=== PATIENT | female | born 1945 | race Asian ===

== ENCOUNTER 2017-02-24 08:00 | Outpatient (CLI) | payer MEDICARE, OTHER ==
[2017-02-24 19:48] LABS: BASOPHILS # (AUTO) 0.1 10^3/uL (0.0-0.1); BASOPHILS % (AUTO) 1.1 %; EOSINOPHILS # (AUTO) 0.1 10^3/uL (0.0-0.7); EOSINOPHILS % (AUTO) 1.2 %; HCT - HEMATOCRIT 42.3 % (37.0-47.0); LYMPHOCYTES # (AUTO) 1.2 10^3/uL (1.5-3.5); LYMPHOCYTES % (AUTO) 20.2 %; MEAN CORPUSCULAR HEMOGLOBIN 30.7 pg (27.0-31.0); MEAN CORPUSCULAR HGB CONC 33.1 g/dL (32.0-36.0); MEAN CORPUSCULAR VOLUME 92.7 fL (81.0-99.0); MONOCYTES # (AUTO) 0.4 10^3/uL (0.0-1.0); MONOCYTES % (AUTO) 6.9 %; NEUTROPHILS % (AUTO) 70.6 %; RED BLOOD COUNT 4.57 10^6/uL (4.20-5.40); RED CELL DISTRIBUTION WIDTH 13.2 % (12.0-15.0); UNCORRECTED WHITE BLOOD COUNT 5.7 x10^3/uL; WHITE BLOOD COUNT 5.7 x10^3/uL (4.8-10.8)
[2017-02-24 20:03] LABS: ALBUMIN/GLOBULIN RATIO 1.9 (1.0-2.2); CALCIUM 9.4 mg/dL (8.5-10.3); CREATININE 0.6 mg/dL (0.4-1.0); POTASSIUM 4.1 mmol/L (3.5-5.0); TOTAL PROTEIN 6.4 g/dL (6.7-8.2)
[2017-02-26 21:07] LABS: B. PARAPERTUSSIS DNA NOT DETECTED (()); B. PERTUSSIS DNA NOT DETECTED (())
== END 2017-02-24 08:01 | disposition home or self-care (01) ==
LOC: LAB.WCP 08:00
PROVIDERS: ATTEND Physician Assistant Medical
DX: R05 Cough (principal)
CPT/HCPCS: 36415; 80053; 84260; 85025; 85651; 87801

== ENCOUNTER 2017-02-26 12:56 | Outpatient (CLI) | payer MEDICARE, OTHER ==
[2017-02-26] MEDS ORDERED: IOPAMIDOL-300 100 ML VIAL IVP ONE (14:02)
--- NOTE | 2017-02-27 11:54 | CT Report ---
CT EXAM OF THE CHEST: 02/26/2017 CLINICAL HISTORY: Cough. TECHNIQUE: The patient received 80 mL of Isovue-300 as a contrast agent. A CAT scan of the chest wa s done in axial, coronal, and sagittal reconstruction images. In accordance with CT protocol optimization, one or more of the following dose reduction techniques w ere utilized for this exam: automated exposure control, adjustment of mA and/or KV based on patient size, or use of iterative reconstructive technique. COMPARISON: 06/27/2011 FINDINGS: Mediastinum shows no significant adenopathy. There are two small nodules within the anter ior aspect of the right lobe of the thyroid. These hypodense nodules each measure 0.5 cm or less in diameter. Normal cardiac size is seen. Mild ectasia of the descending and ascending thoracic aorta is noted. Lung windows show no parenchymal nodules. There is a small cyst or bleb in the medial aspect of the right lower lobe. There are no other cystic changes in the chest. Examination is negative for fibro tic change or abnormality of the bronchi. No change is noted in the chest as compared to 06/27/2011. Liver and spleen are normal. There is a huge right renal cyst noted measuring 10.0 x 11.8 cm. Thi s cyst has substantially increased in size since the preceding exam when it measured 5.7 x 6.3 cm. T he entire cyst is not included on the present exam. The CT numbers of a portion of the cyst seen are 10.8 which suggest the lesion is of benign etiology. Axillary regions bilaterally appear normal. Right breast once again demonstrates a mass at the 6 o'c lock position measuring 1.8 cm. This was seen on preceding exam and, therefore, most likely is of be nign etiology. Bone windows show mild anterior spurring in the thoracic spine. IMPRESSION: 1. LUNGS SHOW NO SIGNIFICANT ABNORMALITY. THERE IS A SMALL BLEB OR CYST ONCE AGAIN NOTED IN THE MED IAL ASPECT OF THE RIGHT LOWER LOBE, UNCHANGED COMPARED TO 06/27/2011. 2. A HUGE CYST IS SEEN IN ASSOCIATION WITH THE RIGHT KIDNEY MEASURING 10.0 X 11.8 CM. THIS CYST HAS SUBSTANTIALLY INCREASED IN SIZE SINCE THE PRECEDING EXAM. 3. A 1.8 CM IN DIAMETER MASS IS NOTED AT THE 6 O'CLOCK POSITION OF THE RIGHT BREAST, UNCHANGED CO MPARED TO PRECEDING EXAM. THIS LACK OF CHANGE SUGGESTS IT IS OF BENIGN ETIOLOGY. JOB #: [id number] EXT JOB #:[id number]
== END 2017-02-26 12:57 | disposition home or self-care (01) ==
LOC: DI 12:56
PROVIDERS: ATTEND Physician Assistant Medical
DX: R05 Cough (principal); N63 Unspecified lump in breast
CPT/HCPCS: 71260; Q9967

== ENCOUNTER 2017-04-27 10:01 | Outpatient (CLI) | payer MEDICARE, OTHER ==
[2017-04-27 17:04] LABS: CHOL/HDL RATIO 3.4 (<4.4); CHOLESTEROL 166 mg/dL; HDL CHOLESTEROL 49 mg/dL; LDL/HDL RATIO 1.6 (<4.4); TRIGLYCERIDES 194 mg/dL; VLDL CHOLESTEROL 39 mg/dL
== END 2017-04-27 10:02 | disposition home or self-care (01) ==
LOC: LAB.WCP 10:01
PROVIDERS: ATTEND Physician Assistant Medical
DX: E78.5 Hyperlipidemia, unspecified (principal)
CPT/HCPCS: 36415; 80061

== ENCOUNTER 2017-05-06 13:55 | Outpatient (CLI) | payer MEDICARE, OTHER ==
--- NOTE | 2017-05-06 17:30 | Ultrasound Report ---
LEFT BREAST ULTRASOUND: 05/06/2017 CLINICAL INDICATION: Palpable abnormality at time of mammogram. TECHNIQUE: Real-time scanning was performed with medical field representative static images obtained. FINDINGS: Ultrasound of the palpable abnormality identified by the patient was performed. Unremarka ble parenchymal lobules are seen. No discrete solid or cystic lesion is identified. No sonographica lly suspicious findings are seen. IMPRESSION: NEGATIVE EXAMINATION. RECOMMENDATION: Routine annual screening unless otherwise clinically indicated. BI-RADS category 1, negative. JOB #: [id number] EXT JOB #:[id number]
--- NOTE | 2017-05-06 17:34 | Mammography Report ---
DIGITAL DIAGNOSTIC BILATERAL MAMMOGRAM: 05/06/2017 CLINICAL INDICATION: Palpable abnormality left upper outer quadrant. The patient was originally scheduled for a screening examination, but described a palpable abnormalit y at the time of the examination. As such, a marker was placed at the site of the palpable abnormalit y, and the examination was converted to a diagnostic mammogram. TECHNIQUE: Bilateral CC and MLO views, left true lateral view. COMPARISON: 05/09/2016, 05/02/2015, 04/18/2014, 05/02/2013, 03/24/2012, 03/10/2011, 02/21/2010 . FINDINGS: The breasts again demonstrate heterogeneously dense fibroglandular parenchyma bilaterally. Punctate, typically benign calcifications are present. No suspicious masses, clustered microcalcific ations, or regions of architectural distortion are identified. Specifically, no mammographic abnormal ity is appreciated in the left upper outer quadrant, at the site indicated by the marker. Please also refer to left breast ultrasound of the same day. IMPRESSION: BENIGN FINDINGS. RECOMMENDATION: ROUTINE ANNUAL SCREENING UNLESS OTHERWISE CLINICALLY INDICATED. BIRADS CATEGORY 2-BENIGN FINDINGS. STANDARD QUALIFYING STATEMENTS 1. This examination was reviewed with the aid of Computer-Aided Detection (CAD). 2. A negative or benign imaging report should not delay biopsy if clinically suspicious findings are present. Consider surgical consultation if warranted. More than 5% of cancers are not identified by i ing. 3. Dense breasts may obscure an underlying neoplasm. JOB #: [id number] EXT JOB #:[id number]
== END 2017-05-06 13:56 | disposition home or self-care (01) ==
LOC: DI 13:55
PROVIDERS: ATTEND Physician Assistant Medical
DX: N63 Unspecified lump in breast (principal)
CPT/HCPCS: 76642; G0204; 77066

== ENCOUNTER 2017-07-12 01:12 | Emergency (ER) | payer MEDICARE, OTHER ==
--- NOTE | 2017-07-12 03:07 | ED Physician Documentation ---
PD HPI HEADACHE - Stated complaint Stated Complaint: HEADACHE - Chief complaint Chief Complaint: Neuro - History obtained from History obtained from: Patient - History of Present Illness Timing - onset: Enter time (00:00 (midnight)) Timing - onset during: Rest Timing - details: Gradual onset, Constant, Waxing and waning, Still present in ED Pain level max: 5 Location: Global Quality: Other (dull pressure) Associated symptoms: No: Fever, Stiff neck, Nausea, Vomiting, Weakness, Numbness , Syncope, Seizure, Eye pain, Vision changes Improved by: Dark room Worsened by: Light Contributing factors: No: Anticoagulated, Possible carbon monoxide, Hypertension , Recent illness, Trauma Similar symptoms before: Has not had sx before Recently seen: Not recently seen - Additional information Additional information: patient complains of global headache since midnight while lying in bed but not asleep. She then measure blood pressure and had readings of 159/99 and 160/103 Review of Systems Constitutional: reports: Reviewed and negative Eyes: reports: Reviewed and negative Nose: denies: Sinus pressure / pain Cardiac: reports: Reviewed and negative Respiratory: reports: Reviewed and negative GI: reports: Reviewed and negative Musculoskeletal: denies: Neck pain Neurologic: reports: Headache. denies: Generalized weakness, Focal weakness, Numbness PD PAST MEDICAL HISTORY - Past Medical History Past Medical History: Yes Cardiovascular: Hypertension, High cholesterol HEENT: Glaucoma Other Past Medical History: cysts on kidneys - Past Surgical History Past Surgical History: Yes General: Appendectomy /TAILER OFF: Hysterectomy - Present Medications Home Medications: Ambulatory Orders Medication Instructions Recorded Confirmed Amlodipine Besylate 1 tab PO QPM 07/12/17 07/12/17 Aspirin [Adult Low Dose Aspirin EC] 1 tab PO DAILY 07/12/17 07/12/17 Brimonidine 0.2% Ophth Drops 1 drops EACHEYE BID 07/12/17 07/12/17 [Alphagan P 0.2% Ophth Drops] Calcium Citrate 3 tab PO DAILY 07/12/17 07/12/17 Cholecalciferol (Vitamin D3) 1 tab PO DAILY 07/12/17 07/12/17 [Vitamin D3] Hydrocodone/Acetaminophen 1 - 2 each PO Q6HR PRN #14 tablet 07/12/17 [Hydrocodon-Acetaminophen 5-325] Latanoprost 0.005% Ophth Drops 1 drops EACHEYE QPM 07/12/17 07/12/17 [Xalatan Ophth Drops] Losartan [Cozaar] 25 mg PO DAILY 07/12/17 07/12/17 Simvastatin 10 mg PO QPM 07/12/17 07/12/17 - Allergies Allergies/Adverse Reactions: Allergies Allergy/AdvReac Type Severity Reaction Status Date / Time morphine Allergy Rash Verified 07/12/17 01:19 - Social History Does the pt smoke?: No Smoking Status: Never smoker Does the pt drink ETOH?: No Does the pt have substance abuse?: No PD ED PE NORMAL - Vitals Vital signs reviewed: Yes - General General: Alert and oriented X 3, No acute distress, Well developed/nourished - HEENT HEENT: PERRL, EOMI, Moist mucous membranes - Neck Neck: Supple, no meningeal sign - Cardiac Cardiac: RRR, No murmur - Respiratory Respiratory: No respiratory distress, Clear bilaterally - Abdomen Abdomen: Soft, Non tender - Extremities Extremities: No edema - Neuro Neuro: Alert and oriented X 3, test rack operator 2-12 intact, No motor deficit, No sensory deficit Eye Opening: Spontaneous Motor: Obeys Commands Verbal: Oriented GCS Score: 15 Results - Vitals Vitals: Vital Signs - 24 hr 07/12/17 07/12/17 07/12/17 01:14 04:00 05:14 Temperature 36.0 C L Heart Rate 78 65 68 Respiratory 18 14 14 Rate Blood Pressure 151/99 H 133/90 H 128/91 H O2 Saturation 100 97 97 Oxygen O2 Source Room air - Labs Labs: Laboratory Tests 07/12/17 07/12/17 03:46 03:46 WBC 5.3 RBC 4.77 Hgb 14.5 Hct 42.3 MCV 88.6 MCH 30.4 MCHC 34.3 RDW 13.1 Plt Count 250 MPV 8.0 Neut # 4.2 Lymph # 0.8 L [place] # 0.3 Eos # 0.0 Baso # 0.1 Absolute Nucleated RBC 0.00 Nucleated RBC % 0.0 Sodium 142 Potassium 3.6 Chloride 106 Carbon Dioxide 27 Anion Gap 9.0 BUN 15 Creatinine 0.6 Estimated GFR (MDRD) 99 Glucose 118 H Calcium 9.3 - Rads (name of study) CT head Radiology: Prelim report reviewed, See rad report PD MEDICAL DECISION MAKING - ED course Complexity details: reviewed results, re-evaluated patient, considered differential, d/w patient Departure - Departure Disposition: 01 Home, Self Care Clinical Impression: Headache Qualifiers: Headache type: unspecified Headache chronicity pattern: acute headache Intractability: not intractable Qualified Code(s): R51 - Headache Hypertension Qualifiers: Hypertension type: essential hypertension Qualified Code(s): I10 - Essential ( primary) hypertension Condition: Good Instructions: ED Cephalgia Unspecified, ED Hypertension Conf Out Of Control Follow-Up: Reba Choi PA-C [Primary Care Provider] - Prescriptions: Hydrocodone/Acetaminophen [Hydrocodon-Acetaminophen 5-325] 1 - 2 each PO Q6HR PRN #14 tablet PRN Reason: Headache Discharge Date/Time: 07/12/17 05:48
[2017-07-12] MEDS ORDERED: HYDROcod/ACETAM 5/325 MG TABLET PO STA ×2 (03:38→05:41)
[2017-07-12] MEDS ORDERED: HYDROcod/ACETAM 10 MG/325 MG TABLET ONE ×2 (03:49→05:51)
[2017-07-12 03:51] LABS: BASOPHILS # (AUTO) 0.1 10^3/uL (0.0-0.1); BASOPHILS % (AUTO) 1.1 %; EOSINOPHILS % (AUTO) 0.8 %; HCT - HEMATOCRIT 42.3 % (37.0-47.0); HGB - HEMOGLOBIN 14.5 g/dL (12.0-16.0); LYMPHOCYTES # (AUTO) 0.8 10^3/uL (1.5-3.5); LYMPHOCYTES % (AUTO) 14.8 %; MEAN CORPUSCULAR HEMOGLOBIN 30.4 pg (27.0-31.0); MEAN CORPUSCULAR HGB CONC 34.3 g/dL (32.0-36.0); MEAN CORPUSCULAR VOLUME 88.6 fL (81.0-99.0); MONOCYTES # (AUTO) 0.3 10^3/uL (0.0-1.0); MONOCYTES % (AUTO) 4.9 %; NEUTROPHILS # (AUTO) 4.2 10^3/uL (1.5-6.6); NEUTROPHILS % (AUTO) 78.4 %; RED BLOOD COUNT 4.77 10^6/uL (4.20-5.40); RED CELL DISTRIBUTION WIDTH 13.1 % (12.0-15.0); UNCORRECTED WHITE BLOOD COUNT 5.3 x10^3/uL; WHITE BLOOD COUNT 5.3 x10^3/uL (4.8-10.8)
[2017-07-12 03:59] LABS: CALCIUM 9.3 mg/dL (8.5-10.3); CREATININE 0.6 mg/dL (0.4-1.0); POTASSIUM 3.6 mmol/L (3.5-5.0)
--- NOTE | 2017-07-12 04:11 | CT Preliminary Report ---
Exam: CT HEAD W/O IMPRESSION: No acute or focal intracranial abnormality. [facility] SITE ID: [id number]
--- NOTE | 2017-07-12 04:14 | CT Report ---
EXAM: CT HEAD EXAM DATE: 07/12/2017 04:01 AM. CLINICAL HISTORY: Occipital headache COMPARISON: 05/10/2014. TECHNIQUE: Multiaxial CT images were obtained from the foramen magnum to the vertex. Reformats: Coron al. IV contrast: None. In accordance with CT protocol optimization, one or more of the following dose reduction techniques w ere utilized for this exam: automated exposure control, adjustment of mA and/or KV based on patient s ize, or use of iterative reconstructive technique. FINDINGS: Parenchyma: No intraparenchymal hemorrhage. No evidence of mass, midline shift, or CT findings of inf arction. Tyson-white differentiation is distinct. Extraaxial Spaces: Normal for age. No subdural or epidural collections identified. Ventricles: Normal in size and position. Sinuses and Orbits: Imaged paranasal sinuses, orbits, and mastoids show no significant abnormality. Bones: No evidence of fracture or calvarial defect. Other: Mild nonspecific white matter change, stable IMPRESSION: No acute or focal intracranial abnormality. [facility] Referring Provider Line: [phone] SITE ID: [id number]
[2017-07-12 05:15] VITALS: BP 128/91
== END 2017-07-12 05:48 | disposition home or self-care (01) ==
LOC: ED 01:12
DX: R51 Headache (principal); I10 Essential (primary) hypertension; E78.00 Pure hypercholesterolemia, unspecified; Z79.82 Long term (current) use of aspirin
CPT/HCPCS: 36415; 70450; 80048; 85025; 99283; A9270

== ENCOUNTER 2017-11-13 09:10 | Outpatient (CLI) | payer MEDICARE, OTHER | END 2017-11-13 09:11 | disposition home or self-care (01) | LOC: LAB.WCP 09:10 | PROVIDERS: ATTEND Family Medicine | DX: R50.9 Fever, unspecified (principal); B97.89 Other viral agents as the cause of diseases classified elsewhere | CPT/HCPCS: 87275; 87276 ==

== ENCOUNTER 2018-05-14 13:06 | Outpatient (CLI) | payer MEDICARE, OTHER ==
--- NOTE | 2018-05-17 09:09 | Mammography Report ---
Reason: BILAT SCREEN w SULY Procedure Date: 05/14/2018 Accession Number: [id number] / [id number] Procedure: [facility]ALO - Screening Mammo w/Suly CPT Code: FULL RESULT: EXAM: Screening Mammo w/Suly DATE: 05/14/2018 2:07 PM CLINICAL HISTORY: 72-year-old female presents for screening mammography. TECHNIQUE: Bilateral CC and MLO views were obtained. A left exaggerated CC view was obtained. COMPARISON: 05/06/2017, 05/09/2016, 05/02/2015. FINDINGS: The breasts demonstrate heterogeneously dense fibroglandular parenchyma bilaterally. A well circumscribed oval hyperdense mass in the right breast anteriorly and inferiorly on the MLO view is stable dating back to 2014. There is no associated microcalcification or architectural distortion. No suspicious masses, clustered microcalcifications, or regions of architectural distortion are identified. IMPRESSION: Benign findings RECOMMENDATION: Routine annual screening unless otherwise clinically indicated. BIRADS CATEGORY 2: Benign findings STANDARD QUALIFYING STATEMENTS: 1. This examination was not reviewed with the aid of Computer-Aided Detection (CAD). 2. A negative or benign imaging report should not delay biopsy if clinically suspicious findings are present. Consider surgical consultation if warrented. More than 5% of cancers are not identified by imaging. 3. Dense breasts may obscure an underlying neoplasm. 4. This examination was reviewed with the aid of 3D breast imaging (tomosynthesis).
== END 2018-05-14 13:07 | disposition home or self-care (01) ==
LOC: DI 13:06
PROVIDERS: ATTEND Physician Assistant Medical
DX: Z12.31 Encounter for screening mammogram for malignant neoplasm of breast (principal)
CPT/HCPCS: 77063; 77067

== ENCOUNTER 2018-05-25 14:41 | Outpatient (CLI) | payer MEDICARE, OTHER ==
--- NOTE | 2018-05-27 15:47 | DEXA Report ---
Reason: BONE DISEASE Procedure Date: 05/25/2018 Accession Number: [id number] / [id number] Procedure: DEX - Dexa Spine and/or Hip CPT Code: FULL RESULT: EXAM: Dexa Spine and/or Hip DATE: 05/25/2018 3:16 PM CLINICAL HISTORY: BONE DISEASE. Follow-up osteopenia TECHNIQUE: Dual energy x-ray absorptiometry (DXA) was performed on a [employer] System. Regions measured are the AP Spine, femoral neck, and if needed forearm. COMPARISON: 05/09/2016 In accordance with the International Society for Clinical Densitometry (ISCD) guidelines, data from previous exams may be reanalyzed using current recommendations and techniques. This is done to allow a more accurate basis for comparison with the current study. FINDINGS: The data for the lumbar spine is as follows: BMD (g/cm/cm) T-SCORE Z-SCORE REGION L1 0.979 -1.3 0.9 L2 0.891 -2.6 -0.4 L3 1.034 -1.4 0.7 L4 TOTAL 0.973 -1.6 0.5 NOTE: All evaluable vertebrae are used for classification The data for the hip is as follows: BMD (g/cm/cm) T-SCORE Z-SCORE REGION Neck 0.808 -1.7 0.4 TOTAL 0.882 -1.0 0.8 NOTE: The femoral neck or total proximal femur, whichever is lowest, is used for classification. DXA RESULTS SUMMARY: Spine SCAN DATE AGE BMD CHANGE VS CHANGE VS PREVIOUS PREVIOUS % 05[age]25/2018 70.7 0.973 -0.106* -9.8* 05/09/2016 68.6 1.079 * Denotes significant change at the 95% confidence level. Denotes dissimilar scan types or analysis methods. DXA RESULTS SUMMARY: Hip SCAN DATE [age]GE BMD CHANGE VS CHANGE VS PREVIOUS PREVIOUS % 05[birth year]25/2018 70.7 0.882 -0.013 -1.5 05/09/2016 68.6 0.895 * Denotes significant change at the 95% confidence level. Denotes dissimilar scan types or analysis methods. IMPRESSION: THE WHO CLASSIFICATION BASED ON THE INTERNATIONAL REFERENCE STANDARD IS OSTEOPENIA. THE FRACTURE RISK IS INCREASED. RECOMMENDATION: Patients with diagnosis of osteoporosis or osteopenia should have regular bone mineral density assessment. For those eligible for Medicare, routine testing is allowed once every 2 years. Testing frequency can be increased for patients who have rapidly progressing disease or for those who are receiving medical therapy to restore bone mass. COMMENT: World Health Organization (WHO) definitions for osteoporosis and osteopenia: NORMAL BMD: T-score at -1.0 or higher, fracture risk is low OSTEOPENIA BMD: T-score between -1.0 and -2.5, fracture risk is increased. OSTEOPOROSIS BMD: T-score at -2.5 or lower, fracture risk is high. National Osteoporosis Foundation recommends: 1. Obtain adequate dietary calcium (at least 1200 mg per day) and vitamin D (400-800 international units per day). 2. Participate, as appropriate, in regular weightbearing and muscle-strengthening exercise. 3. Avoid tobacco use and reduce alcohol and caffeine intake. 4. For more detailed information see the website at www.NOF.org.
== END 2018-05-25 14:42 | disposition home or self-care (01) ==
LOC: DI 14:41
PROVIDERS: ATTEND Physician Assistant Medical
DX: M85.89 Other specified disorders of bone density and structure, multiple sites (principal)
CPT/HCPCS: 77080

== ENCOUNTER 2018-11-08 13:51 | Outpatient (CLI) | payer MEDICARE, OTHER ==
--- NOTE | 2018-11-08 14:21 | XRAY Report ---
Reason: COUGH Procedure Date: 11/08/2018 Accession Number: [id number] / [id number] Procedure: XRN - Chest 2 View X-Ray CPT Code: 00495 FULL RESULT: EXAM: CHEST RADIOGRAPHY EXAM DATE: 11/08/2018 02:14 PM. CLINICAL HISTORY: COUGH. COMPARISON: 12/07/2017 TECHNIQUE: 2 views. FINDINGS: Lungs/Pleura: No focal opacities evident. No pleural effusion. No pneumothorax. Normal volumes. Mediastinum: Heart and mediastinal contours are unremarkable. Other: Minor degenerative change in the spine. Small amount of calcification in the aortic arch. IMPRESSION: No acute findings or significant interval change 2-view chest radiography compared with 12/07/2017. [facility]
== END 2018-11-08 13:52 | disposition home or self-care (01) ==
LOC: DI.N 13:51
PROVIDERS: ATTEND Internal Medicine
DX: R05 Cough (principal)
CPT/HCPCS: 71046

== ENCOUNTER 2018-11-16 08:00 | Outpatient (CLI) | payer MEDICARE, OTHER ==
[2018-11-16 13:30] LABS: ALBUMIN 4.1 g/dL (3.2-5.5); ALBUMIN/GLOBULIN RATIO 1.5 (1.0-2.2); ALKALINE PHOSPHATASE 41 IU/L (42-121); ALT ALANINE AMINOTRANSFERASE 15 IU/L (10-60); AST ASPARTATE AMINOTRANSFERASE 21 IU/L (10-42); BILIRUBIN,TOTAL 0.8 mg/dL (0.2-1.0); BUN - BLOOD UREA NITROGEN 13 mg/dL (6-20); CALCIUM 9.1 mg/dL (8.5-10.3); CARBON DIOXIDE - CO2 27 mmol/L (21-32); CHLORIDE 104 mmol/L (101-111); CHOL/HDL RATIO 2.8 (<4.4); CHOLESTEROL 133 mg/dL; CREATININE 0.8 mg/dL (0.4-1.0); GFR - MDRD 71 (>89); GLUCOSE 105 mg/dL (70-100); HDL CHOLESTEROL 48 mg/dL; LDL CHOLESTEROL,CALCULATED 64 mg/dL; LDL/HDL RATIO 1.3 (<4.4); SODIUM 140 mmol/L (135-145); TOTAL PROTEIN 6.8 g/dL (6.7-8.2); VLDL CHOLESTEROL 21 mg/dL
== END 2018-11-16 23:59 | disposition home or self-care (01) ==
LOC: LAB.WCP 08:00
PROVIDERS: ATTEND Physician Assistant Medical
DX: E78.5 Hyperlipidemia, unspecified (principal)
CPT/HCPCS: 36415; 80053; 80061; 83721

== ENCOUNTER 2019-06-21 13:17 | Outpatient (CLI) | payer MEDICARE, OTHER ==
--- NOTE | 2019-06-24 11:02 | Mammography Report ---
Reason: ROUTINE MAMMO Procedure Date: 06/21/2019 Accession Number: [id number] / [id number] Procedure: ITALO - Screening Mammo w/Paulo CPT Code: Final Report FULL RESULT: EXAM: Screening Mammo w/Paulo DATE: 06/21/2019 1:55 PM CLINICAL HISTORY: Routine screening. No reported personal or family history of breast cancer. TECHNIQUE: (B) - Bilateral CC and MLO views were obtained. COMPARISON: 05/14/2018 through 05/02/2015. PARENCHYMAL PATTERN: (D) - The breasts demonstrate heterogeneously dense fibroglandular parenchyma bilaterally. FINDINGS: Bilateral breasts: There is a stable 2.5 cm oval mass with circumscribed margins in the anterior 6:00 right breast. There are no suspicious masses, calcifications, or areas of distortion. IMPRESSION: Benign findings. BI-RADS category 2. RECOMMENDATION: (ANNUAL) - Recommend routine annual screening mammography. BI-RADS CATEGORY: (2) - Benign Findings. STANDARD QUALIFYING STATEMENTS: 1. This examination was not reviewed with the aid of Computer-Aided Detection (CAD). 2. A negative or benign imaging report should not preclude biopsy if clinically suspicious findings are present. 3. Dense breasts may obscure an underlying neoplasm. 4. This examination was reviewed with the aid of 3D breast imaging (tomosynthesis).
== END 2019-06-21 13:18 | disposition home or self-care (01) ==
LOC: DI 13:17
DX: Z12.31 Encounter for screening mammogram for malignant neoplasm of breast (principal)
CPT/HCPCS: 77063; 77067

== ENCOUNTER 2019-08-17 09:02 | Outpatient (CLI) | payer MEDICARE, OTHER ==
--- NOTE | 2019-08-17 10:59 | Ultrasound Report ---
Reason: ABD PAIN, RUQ Procedure Date: 08/17/2019 Accession Number: [id number] / [id number] Procedure: US - Abdomen Limited CPT Code: Final Report FULL RESULT: EXAM: ABDOMEN ULTRASOUND LIMITED, RUQ EXAM DATE: 08/17/2019 10:16 AM. CLINICAL HISTORY: Right upper quadrant abdominal pain. COMPARISON: 08/31/2015. TECHNIQUE: Real-time scanning was performed with static images obtained. FINDINGS: Liver: Normal in size and echotexture. 12 cm. Main portal vein flow: Hepatopetal. Gallbladder: Normal. No stones, wall thickening, or sonographic Coulter's sign. Biliary System: CBD measures 5 mm. No intrahepatic or extrahepatic ductal dilatation. Other: The right kidney measures 11.5 cm in sagittal dimension. There is a large cyst arising from the upper pole measuring 13 cm in maximal dimension (previously measured 12 cm). There is a small cyst arising from the lower pole measuring 2 cm (stable). A nonobstructive lower pole renal calculus measures 1.2 cm. No free fluid. IMPRESSION: 1. Normal liver and gallbladder. 2. Stable right renal cysts; the dominant arises from the upper pole measuring approximately 13 cm. 3. Nonobstructive right lower pole renal calculus measuring 1.2 cm. [facility]
== END 2019-08-17 09:03 | disposition home or self-care (01) ==
LOC: DI 09:02
PROVIDERS: ATTEND Physician Assistant Medical
DX: Q61.02 Congenital multiple renal cysts (principal); N20.0 Calculus of kidney
CPT/HCPCS: 76705

== ENCOUNTER 2019-10-05 14:09 | Outpatient (CLI) | payer MEDICARE, OTHER ==
--- NOTE | 2019-10-05 18:00 | XRAY Report ---
Reason: LEFT BREAST PAIN Procedure Date: 10/05/2019 Accession Number: [id number] / [id number] Procedure: WCP - Chest 2 View X-Ray CPT Code: 19395 Final Report FULL RESULT: EXAM: CHEST RADIOGRAPHY EXAM DATE: 10/05/2019 11:12 AM. CLINICAL HISTORY: LEFT BREAST PAIN. COMPARISON: CHEST 2 VIEW 11/08/2018 2:09 PM. TECHNIQUE: 2 views. FINDINGS: Lungs/Pleura: No focal opacities evident. No pleural effusion. No pneumothorax. Normal volumes. Mediastinum: Heart and mediastinal contours are unremarkable. Other: None. IMPRESSION: No acute intrathoracic plain film abnormality. [facility]
== END 2019-10-05 23:59 | disposition home or self-care (01) ==
LOC: DI.WCP 14:09
PROVIDERS: ATTEND Physician Assistant Medical
DX: N64.4 Mastodynia (principal)
CPT/HCPCS: 71046

== ENCOUNTER 2020-09-04 10:00 | Outpatient (CLI) | payer MEDICARE, OTHER ==
[2020-09-04 12:00] LABS: BASOPHILS # (AUTO) 0.1 10^3/uL (0.0-0.1); BASOPHILS % (AUTO) 1.6 %; EOSINOPHILS % (AUTO) 1.1 %; HGB - HEMOGLOBIN 12.9 g/dL (12.0-16.0); LYMPHOCYTES # (AUTO) 0.9 10^3/uL (1.5-3.5); LYMPHOCYTES % (AUTO) 24.5 %; MEAN CORPUSCULAR HEMOGLOBIN 31.2 pg (27.0-31.0); MEAN CORPUSCULAR HGB CONC 32.7 g/dL (32.0-36.0); MEAN CORPUSCULAR VOLUME 95.2 fL (81.0-99.0); MEAN PLATELET VOLUME 11.1 fL (7.9-10.8); MONOCYTES # (AUTO) 0.3 10^3/uL (0.0-1.0); MONOCYTES % (AUTO) 6.9 %; NEUTROPHILS # (AUTO) 2.4 10^3/uL (1.5-6.6); NEUTROPHILS % (AUTO) 65.6 %; PLT - PLATELET COUNT 242 10^3/uL (130-450); RED BLOOD COUNT 4.14 10^6/uL (4.20-5.40); RED CELL DISTRIBUTION WIDTH 11.9 % (12.0-15.0); WHITE BLOOD COUNT 3.6 x10^3/uL (4.8-10.8)
[2020-09-04 12:12] LABS: ALBUMIN 4.5 g/dL (3.2-5.5); ALBUMIN/GLOBULIN RATIO 2.1 (1.0-2.2); BILIRUBIN,TOTAL 1.6 mg/dL (0.2-1.0); CALCIUM 9.8 mg/dL (8.5-10.3); CREATININE 0.9 mg/dL (0.4-1.0); TOTAL PROTEIN 6.6 g/dL (6.7-8.2)
== END 2020-09-04 23:59 | disposition home or self-care (01) ==
LOC: LAB.WCP 10:00
PROVIDERS: ATTEND Family Medicine
DX: R10.9 Unspecified abdominal pain (principal); G89.29 Other chronic pain
CPT/HCPCS: 36415; 80053; 85025

== ENCOUNTER 2020-11-05 16:38 | Outpatient (CLI) | payer MEDICARE, OTHER | END 2020-11-05 16:39 | disposition home or self-care (01) | LOC: COV 16:38 | PROVIDERS: ATTEND Ophthalmology | DX: Z01.812 Encounter for preprocedural laboratory examination (principal); H25.12 Age-related nuclear cataract, left eye; Z20.822 Contact with and (suspected) exposure to COVID-19 ==

== ENCOUNTER 2020-11-08 07:26 | Day surgery (SDC) | payer MEDICARE, OTHER ==
[~2020-11-08 07:26] MED LIST: KETOROLAC 0.45% OPHTH DROPS ONE; PHENYLEPHRINE 2.5% OPHTH 2 ML DROPS ONE; PROPARACAINE 0.5% OPHTH DROPS 15 ML ONE
[2020-11-08] MEDS ORDERED: LACTATED RINGERS 500 ML IV ONE (07:45)
[2020-11-08] MEDS ORDERED: CYCLOPENTOLATE 2% OPHTH DROPS 2 ML LEFTEYE ONE (07:46)
[2020-11-08] MEDS ORDERED: VANCOMYCIN OPHTHALMI 8MG/0.8ML 8 MG/0.8 ML SYRINGE IO ONE ×2 (08:10→11:19)
[2020-11-08] MEDS ORDERED: CHONDR SULF/HYALURONATE SYRINGE IO ONE (08:10)
[2020-11-08] MEDS ORDERED: EPINEPHrine 1 MG/ML AMP IR ONE (08:10)
[2020-11-08] MEDS ORDERED: BSS/LIDOCAINE/EPINEPHRINE 1 ML SYRINGE IO ONE (08:10)
[2020-11-08] MEDS ORDERED: TRIAMCIN/MOXIFLOX OPHTHALMIC 0.6 ML VIAL IO ONE ×2 (08:10→11:20)
[2020-11-08] MEDS ORDERED: TIMOLOL 0.5% OPHTH DROPS OPTH ONE (08:10)
[2020-11-08] MEDS ORDERED: BRIMONIDINE 0.2% OPHTH DROPS 5 ML OPTH ONE (08:10)
[2020-11-08] MEDS ORDERED: PROPARACAINE 0.5% OPHTH DROPS 15 ML EACHEYE ONE (08:10)
--- NOTE | 2020-11-08 08:22 | ANESTHESIA ---
Pre-Anesthesia VS, & Labs - Diagnosis L cataract - Procedure L phacoIOL Vital Signs: Temp Pulse Resp BP Pulse Ox 36.9 C 61 18 134/84 H 99 11/08/20 07:49 11/08/20 07:49 11/08/20 07:49 11/08/20 07:49 11/08/20 07:49 Height: 4 ft 10 in Weight (kg): 45.3 kg Body Mass Index: 20.8 BMI Classification: Healthy weight - NPO >8 hours - Is Patient ?: No Home Medications and Allergies Amlodipine Besylate 1 tab PO QPM 07/12/17 Brimonidine 0.2% Ophth Drops [Alphagan P 0.2% Ophth Drops] 1 drops EACHEYE BID 07/12/17 Calcium Citrate 3 tab PO DAILY 07/12/17 Cholecalciferol (Vitamin D3) [Vitamin D3] 1 tab PO DAILY 07/12/17 Latanoprost 0.005% Ophth Drops [Xalatan Ophth Drops] 1 drops EACHEYE QPM 07/12/17 Losartan [Cozaar] 25 mg PO DAILY 07/12/17 Simvastatin 10 mg PO QPM 07/12/17 Allergies/Adverse Reactions: Allergies Allergy/AdvReac Type Severity Reaction Status Date / Time morphine Allergy Rash Verified 11/08/20 07:49 Anes History & Medical History - Anesthetic History Anesthesia Complications: reports: No previous complications Family history of Anesthesia Complications: Denies Family history of Malignant Hyperthermia: Denies - Medical History Cardiovascular: reports: Hypertension, High cholesterol Smoking Status: Never smoker - Surgical History General: reports: Appendectomy Gynecologic: reports: Hysterectomy Exam General: Alert, Oriented x3, Cooperative Dental: WNL Mouth Openin Fingerbreadth Neck Mobility: Normal Mallampati classification: I Thyromental Distance: 4-6 cm Respiratory: Lungs clear Cardiovascular: Regular rate Plan Anesthesia Type: MAC Consent for Procedure(s) Verified and Reviewed: Yes Code Status: Attempt Resuscitation ASA classification: 2-Mild systemic disease Is this case an emergency?: No
[2020-11-08] MEDS ORDERED: MIDAZOLAM 2 MG/2 ML VIAL ONE (08:29)
[2020-11-08 09:15] VITALS: BP 119/71
--- NOTE | 2020-11-08 10:08 | OPERATIVE REPORT ---
DATE OF SERVICE: 11/08/2020 Physician: Clif Rock MD PREOPERATIVE DIAGNOSIS: Visually significant cataract, left eye. This was her first cataract surger y. POSTOPERATIVE DIAGNOSIS: Visually significant cataract, left eye. This was her first cataract surge ry. PROCEDURE: Phacoemulsification with posterior chamber intraocular lens implant, left eye. SURGEON: Clif Rock MD ANESTHESIA: Monitored anesthesia care. COMPLICATIONS: None. OPERATIVE INDICATIONS: This is a 75-year-old woman with progressive vision loss in the left eye due to 2-3+ nuclear sclerotic cataract. Best corrected visual acuity was 20/25 with glare to 20/125. In dications for surgery are overall decrease in vision, difficulty reading, difficulty driving in low l ight or at night, difficulty driving at night because of headlights from other vehicles and difficult y with glare or bright lights in any situation. She was consented at length concerning risks and elaine efits of cataract surgery, after which she expressed a desire to proceed with surgery. Before going to the operating room, the patient was marked on the cornea for axis 102 for a planned toric intraocu lar lens. OPERATIVE PROCEDURE: The patient was taken into OR #3 and placed under monitored anesthesia care. A surgical timeout was conducted, confirming correct patient, correct procedure, and correct surgical site. She was given topical anesthesia, and prepped and draped in the usual sterile fashion. The ey e was entered at the 6 and 3 o'clock positions. Intracameral Shugarcaine was injected into the anter ior chamber, followed by Viscoat. A continuous-tear curvilinear capsulorrhexis was performed. The n ucleus was hydrodissected and phacoemulsified. Cortex was evacuated using automated infusion and asp iration. Provisc was injected in the capsular bag, and a 19.5 diopter toric intraocular lens inserte d in the bag and rotated to axis 102. Infusion and aspiration were used to evacuate the viscoelastic materials. The eye was inflated to physiologic pressure using balanced salt solution and found to b e watertight. Approximately 0.25 mL of a mixture of triamcinolone and moxifloxacin was injected garcia ssclerally into the vitreous in the inferotemporal quadrant. An additional 0.55 mL of a mixture of t riamcinolone, moxifloxacin, and vancomycin was injected subconjunctivally in the superior quadrant fo r infection and inflammation prophylaxis. Wound integrity was checked with Weck-Ale sponges. The IO L was checked one more time for proper axis of 102, which it was. The patient was taken from the ope rating room in good condition and given postoperative instructions. TD: 11/08/2020 09:45
[2020-11-08] MEDS ORDERED: BRIMONIDINE 0.2% OPHTH DROPS 5 ML ONE (11:18)
[2020-11-08] MEDS ORDERED: BSS/LIDOCAINE/EPINEPHRINE 1 ML SYRINGE ONE (11:19)
[2020-11-08] MEDS ORDERED: EPINEPHrine 1 MG/ML AMP ONE (11:19)
[2020-11-08] MEDS ORDERED: TIMOLOL 0.5% OPHTH DROPS ONE (11:19)
--- NOTE | 2020-11-08 18:24 | ANESTHESIA POST OP EVALUATION ---
Anesthesia Post Eval - Post Anesthesia Eval Vitals: Last Vital Signs Temp 36.5 C 11/08/20 09:13 Pulse 58 L 11/08/20 09:13 Resp 16 11/08/20 09:13 BP 119/71 11/08/20 09:13 Pulse Ox 99 11/08/20 09:13 CV Function Including HR & BP: positive: Stable Pain Control: positive: Satisfactory Nausea & Vomiting: positive: Negative Mental Status: positive: Baseline Respiratory Status: Airway Patent Hydration Status: Satisfactory Anesthesia Complications: positive: None
== END 2020-11-08 07:27 | disposition home or self-care (01) ==
LOC: SDS 07:26
PROVIDERS: ATTEND Ophthalmology
DX: H25.12 Age-related nuclear cataract, left eye (principal); I10 Essential (primary) hypertension; E78.00 Pure hypercholesterolemia, unspecified; H40.1130 Primary open-angle glaucoma, bilateral, stage unspecified
CPT/HCPCS: 66984; A9270; J3490; J7120; V2632

== ENCOUNTER 2020-12-31 16:44 | Outpatient (CLI) | payer MEDICARE, OTHER | END 2020-12-31 16:45 | disposition home or self-care (01) | LOC: COV 16:44 | PROVIDERS: ATTEND Ophthalmology | DX: Z01.812 Encounter for preprocedural laboratory examination (principal); H25.11 Age-related nuclear cataract, right eye; Z20.822 Contact with and (suspected) exposure to COVID-19 ==

== ENCOUNTER 2021-01-30 09:41 | Outpatient (CLI) | payer MEDICARE, OTHER ==
--- NOTE | 2021-01-31 16:01 | DEXA Report ---
PROCEDURE: Dexa Spine and/or Hip INDICATIONS: POST MENOPAUSAL TECHNIQUE: Dual energy x-ray absorptiometry (DXA) was performed on a [employer] System. Regions measur ed are the AP Spine, femoral neck, and if needed forearm. COMPARISON: 05/25/2018 and 05/09/2016.. FINDINGS: Lumbar Spine: Bone Mineral Density 1.013 g/cm/cm,T score -1.4, osteopenia Left Hip: Bone Mineral Density 0.853 g/cm/cm,T score -1.2, osteopenia Left Femoral Neck: Bone Mineral Density 0.795 g/cm/cm, T score -1.7, osteopenia (T score greater or equal to -1.0: NORMAL) (T score from -1.1 to -2.4: OSTEOPENIA) (T score less than or equal to -2.5 to: OSTEOPOROSIS) Impression: Osteopenia. Bone mineral density has decreased 3.3% compared to 05/25/2018. Patients with diagnosis of osteoporosis or osteopenia should have regular bone mineral density assess ment. For those eligible for Medicare, routine testing is allowed once every 2 years. Testing frequ ency can be increased for patients who have rapidly progressing disease or for those who are receivin g medical therapy to restore bone mass. Reviewed by: Ofelia West MD, PhD on 01/31/2021 4:00 PM PDT Approved by: Ofelia West MD, PhD on 01/31/2021 4:00 PM PDT Station ID: [id number]
== END 2021-01-30 09:42 | disposition home or self-care (01) ==
LOC: DI 09:41
PROVIDERS: ATTEND Physician Assistant Medical
DX: M85.89 Other specified disorders of bone density and structure, multiple sites (principal); Z78.0 Asymptomatic menopausal state

== ENCOUNTER 2021-05-12 07:55 | Emergency (ER) | payer MEDICARE, OTHER ==
[2021-05-12 08:45] LABS: BASOPHILS # (AUTO) 0.1 10^3/uL (0.0-0.1); BASOPHILS % (AUTO) 1.4 %; EOSINOPHILS # (AUTO) 0.1 10^3/uL (0.0-0.7); HCT - HEMATOCRIT 43.1 % (37.0-47.0); HGB - HEMOGLOBIN 14.6 g/dL (12.0-16.0); LYMPHOCYTES # (AUTO) 0.5 10^3/uL (1.5-3.5); LYMPHOCYTES % (AUTO) 8.3 %; MEAN CORPUSCULAR HEMOGLOBIN 32.5 pg (27.0-31.0); MEAN CORPUSCULAR HGB CONC 33.9 g/dL (32.0-36.0); MEAN PLATELET VOLUME 11.1 fL (7.9-10.8); MONOCYTES # (AUTO) 0.2 10^3/uL (0.0-1.0); MONOCYTES % (AUTO) 4.1 %; NEUTROPHILS % (AUTO) 84.9 %; PLT - PLATELET COUNT 213 10^3/uL (130-450); RED BLOOD COUNT 4.49 10^6/uL (4.20-5.40); RED CELL DISTRIBUTION WIDTH 12.2 % (12.0-15.0); WHITE BLOOD COUNT 5.9 x10^3/uL (4.8-10.8)
[2021-05-12] MEDS ORDERED: HYDROmorphone 0.5 MG/0.5 ML SYRINGE IVP STA (08:47)
[2021-05-12] MEDS ORDERED: DEXAMETHASONE 10 MG/ML VIAL IV STA (08:47)
[2021-05-12 08:50] LABS: ALBUMIN/GLOBULIN RATIO 2.5 (1.0-2.2); BILIRUBIN,TOTAL 2.2 mg/dL (0.2-1.0); CALCIUM 9.9 mg/dL (8.5-10.3); CREATININE 0.9 mg/dL (0.4-1.0); POTASSIUM 3.6 mmol/L (3.5-5.0)
--- NOTE | 2021-05-12 08:50 | ED Physician Documentation ---
PD HPI ABD PAIN - Stated complaint Stated Complaint: ABD PX - Chief complaint Chief Complaint: Abd Pain - History obtained from History obtained from: Patient - Additional information Additional information: Patient comes emergency department chief complaint of mid abdominal pain and decreased appetite since yesterday evening. She states she has been having symptoms like this on and off for months. She was seen in August for colonoscopy and endoscopy, during which a number of polyps were removed from her large intestine. However, no other abnormalities were found. Patient followed up with gastroenterology in September and states they did not have any specific recommendations, other than she might have irritable bowel syndrome. Patient has continued to have bouts of this pain during which time she cannot eat or drink, because she feels no impulse to do so. She has lost about 20 pounds over the year. Patient was seen at [facility] for similar symptoms last month and a CT scan of the abdomen pelvis was done and unremarkable. Patient denies any other complaints at this time. No fevers or chills. She does have a history of constipation and had a small bowel movement yesterday morning. She occasionally takes senna to help clear out her bowels. No dysuria. No blood in stool. No respiratory symptoms. The patient is otherwise fairly healthy. She states that the only other symptom she gets along with this occasionally are a whole body tingling and a feeling of being cold. She states she has her thyroid checked with her basic labs every year by her primary provider [facility], and that this has always been normal. Review of Systems Ten Systems: 10 systems reviewed and negative Constitutional: reports: Reviewed and negative Eyes: reports: Reviewed and negative Ears: reports: Reviewed and negative Nose: reports: Reviewed and negative Throat: reports: Reviewed and negative Cardiac: reports: Reviewed and negative Respiratory: reports: Reviewed and negative GI: reports: Abdominal Pain : reports: Reviewed and negative Skin: reports: Reviewed and negative Musculoskeletal: reports: Reviewed and negative Neurologic: reports: Reviewed and negative Psychiatric: reports: Reviewed and negative Endocrine: reports: Reviewed and negative Immunocompromised: reports: Reviewed and negative PD PAST MEDICAL HISTORY - Past Medical History Cardiovascular: Hypertension, High cholesterol HEENT: Glaucoma - Past Surgical History Past Surgical History: Yes 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 - Present Medications Home Medications: Ambulatory Orders Medication Instructions Recorded Confirmed Amlodipine Besylate 1 tab PO QPM 07/12/17 11/08/20 Brimonidine 0.2% Ophth Drops 1 drops EACHEYE BID 07/12/17 11/07/20 [Alphagan P 0.2% Ophth Drops] Calcium Citrate 3 tab PO DAILY 07/12/17 07/12/17 Cholecalciferol (Vitamin D3) 1 tab PO DAILY 07/12/17 11/07/20 [Vitamin D3] Latanoprost 0.005% Ophth Drops 1 drops EACHEYE QPM 07/12/17 11/08/20 [Xalatan Ophth Drops] Losartan [Cozaar] 25 mg PO DAILY 07/12/17 11/08/20 Simvastatin 10 mg PO QPM 07/12/17 11/08/20 - Allergies Allergies/Adverse Reactions: Allergies Allergy/AdvReac Type Severity Reaction Status Date / Time morphine Allergy Rash Verified 05/12/21 08:12 - Social History Does the pt smoke?: No Smoking Status: Never smoker Does the pt drink ETOH?: No Does the pt have substance abuse?: No PD ED PE NORMAL - Vitals Vital signs reviewed: Yes - General General: Alert and oriented X 3, No acute distress, Well developed/nourished - HEENT HEENT: Atraumatic, PERRL, EOMI, Moist mucous membranes - Neck Neck: Supple, no meningeal sign - Cardiac Cardiac: RRR, No murmur - Respiratory Respiratory: No respiratory distress, Clear bilaterally - Abdomen Abdomen: Soft, Non distended, Other (Periumbilical and epigastric tenderness, no rebound or guarding.) - Derm Derm: Normal color, Warm and dry, No rash - Extremities Extremities: No deformity, No edema - Neuro Neuro: Alert and oriented X 3, occupational rehabilitation aide 2-12 intact, Normal speech - Psych Psych: Normal mood, Normal affect Results - Vitals Vitals: Vital Signs - 24 hr 05/12/21 07:59 Temperature 37.0 C Heart Rate 82 Respiratory 16 Rate Blood Pressure 131/90 H O2 Saturation 100 Oxygen O2 Source Room air - Labs Labs: Laboratory Tests 05/12/21 05/12/21 08:25 08:25 WBC 5.9 RBC 4.49 Hgb 14.6 Hct 43.1 MCV 96.0 MCH 32.5 H MCHC 33.9 RDW 12.2 Plt Count 213 MPV 11.1 H Neut # (Auto) 5.0 Lymph # (Auto) 0.5 L [place] # (Auto) 0.2 Eos # (Auto) 0.1 Baso # (Auto) 0.1 Absolute Nucleated RBC 0.00 Nucleated RBC % 0.0 Sodium 140 Potassium 3.6 Chloride 101 Carbon Dioxide 24 Anion Gap 15.0 H BUN 24 H Creatinine 0.9 Estimated GFR (MDRD) 61 L Glucose 90 Calcium 9.9 Total Bilirubin 2.2 H AST 23 ALT 23 Alkaline Phosphatase 41 L Total Protein 7.0 Albumin 5.0 Globulin 2.0 L Albumin/Globulin Ratio 2.5 H Lipase 35 PD MEDICAL DECISION MAKING - ED course Complexity details: reviewed results, re-evaluated patient, considered differential, d/w patient ED course: I discussed with the patient that we will recheck laboratory studies and treat her symptomatically today. I have offered CT scan, but patient has declined, stating that she just had this done in March. Since her symptoms are recurrent and have been ongoing for months, during which time she has already seen gastroenterology and had scopes and CT imaging, I feel this is reasonable. 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 Patient is agreeable. Departure - Departure Disposition: 01 Home, Self Care Clinical Impression: Abdominal pain Qualifiers: Abdominal location: generalized Qualified Code(s): R10.84 - Generalized abdominal pain Condition: Stable Instructions: ED Abdominal Pain Unkn Cause Comments: Please call your instrument mechanic first thing tomorrow morning to make an appointment to follow-up about your ongoing abdominal pain and eating difficulties. Your labs today look good. You have declined CT scan because you just had one in March at [facility] which was negative for the same symptoms. If your pain gets worse or you develop further concerns you may follow-up with your primary care physician or return to the emergency department.
[2021-05-12 09:22] VITALS: BP 126/83
== END 2021-05-12 09:34 | disposition home or self-care (01) ==
LOC: ED 07:55
DX: R10.84 Generalized abdominal pain (principal); Z86.010 Personal history of colon polyps; I10 Essential (primary) hypertension
CPT/HCPCS: 36415; 80053; 83690; 85025; 96374; 99283; 99284; J1170

== ENCOUNTER 2021-05-30 14:06 | Outpatient (CLI) | payer MEDICARE, OTHER ==
[2021-05-30 14:36] LABS: BASOPHILS # (AUTO) 0.1 10^3/uL (0.0-0.1); EOSINOPHILS % (AUTO) 0.4 %; HCT - HEMATOCRIT 41.5 % (37.0-47.0); HGB - HEMOGLOBIN 13.6 g/dL (12.0-16.0); LYMPHOCYTES # (AUTO) 0.6 10^3/uL (1.5-3.5); LYMPHOCYTES % (AUTO) 11.9 %; MEAN CORPUSCULAR HEMOGLOBIN 31.9 pg (27.0-31.0); MEAN CORPUSCULAR HGB CONC 32.8 g/dL (32.0-36.0); MEAN CORPUSCULAR VOLUME 97.4 fL (81.0-99.0); MEAN PLATELET VOLUME 10.6 fL (7.9-10.8); MONOCYTES # (AUTO) 0.3 10^3/uL (0.0-1.0); MONOCYTES % (AUTO) 6.7 %; NEUTROPHILS % (AUTO) 79.8 %; PLT - PLATELET COUNT 234 10^3/uL (130-450); RED BLOOD COUNT 4.26 10^6/uL (4.20-5.40); RED CELL DISTRIBUTION WIDTH 12.3 % (12.0-15.0); WHITE BLOOD COUNT 5.1 x10^3/uL (4.8-10.8)
[2021-05-30 14:57] LABS: ALBUMIN 4.7 g/dL (3.2-5.5); BILIRUBIN,DIRECT 0.3 mg/dL (0.1-0.5); BILIRUBIN,TOTAL 1.2 mg/dL (0.2-1.0); TOTAL PROTEIN 6.8 g/dL (6.7-8.2)
[2021-05-30 16:52] LABS: CREATININE 0.9 mg/dL (0.4-1.0); POTASSIUM 3.9 mmol/L (3.5-5.0)
[2021-05-31 11:11] LABS: HEPATITIS A IGM NON-REACTIVE (NON-REACTIVE); HEPATITIS B CORE ANTIBODY IGM NON-REACTIVE (NON-REACTIVE); HEPATITIS B SURFACE ANTIGEN NON-REACTIVE (NON-REACTIVE); HEPATITIS C ANTIBODY NON-REACTIVE (NON-REACTIVE)
[2021-06-01 12:17] LABS: ANA SCREEN NEGATIVE (NEGATIVE)
== END 2021-05-30 14:07 | disposition home or self-care (01) ==
LOC: LAB 14:06
PROVIDERS: ATTEND Surgery
DX: R63.4 Abnormal weight loss (principal); R20.2 Paresthesia of skin; R10.9 Unspecified abdominal pain; G89.29 Other chronic pain; N28.1 Cyst of kidney, acquired
CPT/HCPCS: 36415; 80048; 80074; 80076; 81599; 83516; 83690; 85025; 85651; 86038; 86671

== ENCOUNTER 2023-03-06 14:47 | Emergency (ER) | payer MEDICARE, OTHER ==
--- NOTE | 2023-03-06 14:58 | ED Physician Documentation ---
PD HPI HEENT - Stated complaint Stated Complaint: THROAT DISCOMFORT - Chief complaint Chief Complaint: Heent - History obtained from History obtained from: Patient - History of Present Illness Timing - onset: How many hours ago (few), Today Timing - duration: Hours (few) Timing - details: Abrupt onset (She states she felt okay last evening and this morning. Ate earlier today without problems. She is taking oral medication supplements in tablet form and felt onset of discomfort in the upper abdomen/lower chest area. Feeling nauseous. Pain worse with swallowing water. 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 - Present Medications Home Medications: Ambulatory Orders Medication Instructions Recorded Confirmed Amlodipine Besylate 1 tab PO QPM 07/12/17 11/08/20 Brimonidine 0.2% Ophth Drops 1 drops EACHEYE BID 07/12/17 11/07/20 [Alphagan P 0.2% Ophth Drops] Calcium Citrate 3 tab PO DAILY 07/12/17 07/12/17 Cholecalciferol (Vitamin D3) 1 tab PO DAILY 07/12/17 11/07/20 [Vitamin D3] Latanoprost 0.005% Ophth Drops 1 drops EACHEYE QPM 07/12/17 11/08/20 [Xalatan Ophth Drops] Losartan [Cozaar] 25 mg PO DAILY 07/12/17 11/08/20 Simvastatin 10 mg PO QPM 07/12/17 11/08/20 - Allergies Allergies/Adverse Reactions: Allergies Allergy/AdvReac Type Severity Reaction Status Date / Time morphine Allergy Rash Verified 03/06/23 14:51 - Social History Does the pt smoke?: No Smoking Status: Never smoker Does the pt drink ETOH?: No Does the pt have substance abuse?: No PD ED PE NORMAL - Vitals Vital signs reviewed: Yes - General General: Alert and oriented X 3, Well developed/nourished, Other (she appears uncomfortable. Has some abd distension. Normal voice and respirations. ) - HEENT HEENT: Pharynx benign - Neck Neck: Supple, no meningeal sign, No adenopathy - Cardiac Cardiac: RRR, No murmur - Respiratory Respiratory: No respiratory distress, Clear bilaterally - Abdomen Abdomen: Soft, No organomegaly, Other (tender uppe abd with distension and some guarding. ). No: Normal bowel sounds (increased and tympanitic.) Results - Vitals Vitals: Vital Signs - 24 hr 03/06/23 03/06/23 14:51 17:35 Temperature 36.7 C Heart Rate 98 90 Respiratory 16 16 Rate Blood Pressure 150/90 H 144/99 H O2 Saturation 97 99 Oxygen O2 Source Room air - Labs Labs: Laboratory Tests 03/06/23 03/06/23 15:26 15:26 WBC 7.2 RBC 4.52 Hgb 14.3 Hct 42.4 MCV 93.8 MCH 31.6 H MCHC 33.7 RDW 12.6 Plt Count 279 MPV 9.9 Neut # (Auto) 5.6 Lymph # (Auto) 0.9 L [place] # (Auto) 0.5 Eos # (Auto) 0.1 Baso # (Auto) 0.1 Absolute Nucleated RBC 0.00 Nucleated RBC % 0.0 Sodium 129 L Potassium 3.8 Chloride 95 L Carbon Dioxide 27 Anion Gap 7.0 BUN 14 Creatinine 0.7 Estimated GFR (MDRD) 82 L Glucose 119 H Calcium 9.5 Total Bilirubin 0.8 AST 22 ALT 20 Alkaline Phosphatase 51 Total Protein 7.1 Albumin 4.7 Globulin 2.4 Albumin/Globulin Ratio 2.0 Lipase 58 - Rads (name of study) chest/abd/pelvic CT Relevant Findings:: Prelim report reviewed (no acute abnormality. right renal cyst noted, stable. 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 No obstruction pattern per se. ), See rad report PD Medical Decision Making - ED course Complexity details: reviewed results, considered differential (Onset of chest and upper abdomen pain after swallowing some tablets. However she does have general abdominal tenderness with distention. More concerning for bowel obstruction rather than esophageal blockage. Can get labs plus CT chest and abdomen.), d/w patient Reviewed Lab Results: The patient's CT shows lots of gas throughout. No air/fluid levels. 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 I told about the splenic artery aneurysm. They were not familiar with this. I researched UpToDate and it says that these should be evaluated if larger than 2.0 cm. As such, I conveyed this to the patient/ and they will follow up with PMD. On re-exam, the patient is feeling much better. Abd not distended now and is not tender. Her exam prior had been consistent with SBO adn now better. May have had partial obstruction that resolved with pain meds. But is better now and CT without acute findings. Labs are also good with normal lipase, LFTs, renal function. SOdium is somewhat low at 129 but not signfiicant enough to cause current symptoms. Departure - Departure Disposition: 01 Home, Self Care Clinical Impression: Acute upper abdominal pain, Splenic artery aneurysm, Renal cyst Condition: Stable Record reviewed to determine appropriate education?: Yes Follow-Up: KARIE GARCIA [Primary Care Provider] - Comments: It is good that your abdominal pain is improved and you are able to swallow liquids. I would suggest liquids/ soft foods for this evening and progress to normal diet tomorrow if doing okay. Your CT scan showed a cyst on your kidney which you apparently know about. There was also identified an aneurysm of the splenic artery which measures 2.1 cm. I looked up a reference which says they typically are evaluated if greater than 2 cm. Follow-up with your primary care to get a referral to a vascular specialist to see if any treatment is indicated. Otherwise return to the ER for recurring symptoms. Forms: PCP List Discharge Date/Time: 03/06/23 17:39
[2023-03-06] MEDS ORDERED: ONDANSETRON 4 MG/2 ML VIAL IVP STA (15:12)
[2023-03-06] MEDS ORDERED: SODIUM CHLORIDE 0.9% 1,000 ML IV STA (15:12)
[2023-03-06] MEDS ORDERED: KETOROLAC 15 MG/ML VIAL IVP STA (15:12)
[2023-03-06] MEDS ORDERED: fentaNYL 100 MCG/2 ML VIAL IVP STA (15:13)
[2023-03-06 15:30] LABS: BASOPHILS # (AUTO) 0.1 10^3/uL (0.0-0.1); BASOPHILS % (AUTO) 1.3 %; EOSINOPHILS # (AUTO) 0.1 10^3/uL (0.0-0.7); EOSINOPHILS % (AUTO) 1.8 %; HCT - HEMATOCRIT 42.4 % (37.0-47.0); HGB - HEMOGLOBIN 14.3 g/dL (12.0-16.0); LYMPHOCYTES # (AUTO) 0.9 10^3/uL (1.5-3.5); LYMPHOCYTES % (AUTO) 12.3 %; MEAN CORPUSCULAR HEMOGLOBIN 31.6 pg (27.0-31.0); MEAN CORPUSCULAR HGB CONC 33.7 g/dL (32.0-36.0); MEAN CORPUSCULAR VOLUME 93.8 fL (81.0-99.0); MEAN PLATELET VOLUME 9.9 fL (7.9-10.8); MONOCYTES # (AUTO) 0.5 10^3/uL (0.0-1.0); MONOCYTES % (AUTO) 6.6 %; NEUTROPHILS # (AUTO) 5.6 10^3/uL (1.5-6.6); NEUTROPHILS % (AUTO) 77.6 %; PLT - PLATELET COUNT 279 10^3/uL (130-450); RED BLOOD COUNT 4.52 10^6/uL (4.20-5.40); RED CELL DISTRIBUTION WIDTH 12.6 % (12.0-15.0); WHITE BLOOD COUNT 7.2 x10^3/uL (4.8-10.8)
[2023-03-06 15:51] LABS: ALBUMIN 4.7 g/dL (3.2-5.5); BILIRUBIN,TOTAL 0.8 mg/dL (0.2-1.0); CALCIUM 9.5 mg/dL (8.5-10.3); CREATININE 0.7 mg/dL (0.6-1.3); POTASSIUM 3.8 mmol/L (3.5-4.5); TOTAL PROTEIN 7.1 g/dL (6.4-8.9)
[2023-03-06] MEDS ORDERED: iohexoL-300 100 ML VIAL ONE (16:04)
--- NOTE | 2023-03-06 16:42 | CT Report ---
PROCEDURE: CHEST W INDICATIONS: chest to abd pain after taking supplements PO CONTRAST: 90ml omni 300 TECHNIQUE: After the administration of intravenous contrast, 1 mm axial images were acquired from the pulmonary apices through the posterior costophrenic angles. Axial 5 mm soft tissue kernel reconstructions were performed as well as 8 mm axial MIP and coronal and sagittal 5 mm reformations. For radiation dose reduction, the following was used: automated exposure control, adjustment of mA and/or kV according to patient size. COMPARISON: None. FINDINGS: Image quality: Excellent. Lungs and pleura: No consolidation. No pleural effusions. No pneumothorax. No suspicious pulmonary n odules which require follow up. Mediastinum: Heart size is normal. No pericardial effusion. No large vessel abnormality. No mediastin al adenopathy by size criteria. Chest wall and lower neck: Thyroid is unremarkable. No axillary or supraclavicular adenopathy by size . Bones: No aggressive osseous abnormality. Upper Abdomen: Please see dedicated abdominal/pelvis CT. IMPRESSION: Normal chest CT. Please see dedicated CT of the abdomen and pelvis for further discussion. Reviewed by: Gerber Santamaria on 03/06/2023 4:40 PM PDT Approved by: Gerber Santamaria on 03/06/2023 4:40 PM PDT Station ID: [id number]
--- NOTE | 2023-03-06 16:48 | CT Report ---
PROCEDURE: ABDOMEN/PELVIS W INDICATIONS: Abdominal pain, acute, nonlocalized CONTRAST: 90ml omni 300 TECHNIQUE: After the administration of intravenous contrast, 5 mm thick sections acquired from the diaphragms to the symphysis. 5 mm thick coronal and sagittal reformats were acquired. For radiation dose reducti on, the following was used: automated exposure control, adjustment of mA and/or kV according to lisa ent size. COMPARISON: None FINDINGS: Image quality: Excellent. Lung bases and heart: Unremarkable. Liver: No solid mass. Gallbladder and biliary tree: No radiopaque stones or wall thickening. No biliary dilation. Spleen: No splenomegaly. Pancreas: No pancreatic ductal dilation. Adrenals: No adrenal nodule. Kidneys and ureters: No hydronephrosis. No renal cystic lesion which requires follow up. No solid mas s. 12.6 x 11.4 cm exophytic cyst off the superior pole of the right kidney, without internal complexi ty. Bowel and peritoneum: No bowel distension. No pathologic free fluid. Fecal debris within the small [place] wel. Lymph nodes: No central or retroperitoneal adenopathy. Vessels: No infrarenal aortic aneurysm. 2.1 cm splenic artery aneurysm. PELVIS Reproductive organs: Unremarkable. Bladder: No abnormal wall thickening, accounting for underdistension. Pelvic lymph nodes: No pelvic adenopathy by size criteria. Bones: No aggressive osseous abnormality. Other: Small umbilical hernia containing fat. IMPRESSION: No acute fracture explain the patient's abdominal pain. 2.1 cm splenic artery aneurysm. Recommend outpatient vascular surgery referral for treatment or manag ement. Fecal debris within the small bowel, which may indicate small intestinal bacterial overgrowth versus slow intestinal transit. 12.6 x 11.4 cm exophytic cyst off the superior pole of the right kidney, without internal complexity. Reviewed by: Gerber Santamaria on 03/06/2023 4:47 PM PDT Approved by: Gerber Santamaria on 03/06/2023 4:47 PM PDT Station ID: [id number]
[2023-03-06 17:40] VITALS: BP 144/99
[2023-03-06] MEDS ORDERED: iohexoL-300 100 ML VIAL IVP ONE (19:19)
== END 2023-03-06 17:39 | disposition home or self-care (01) ==
LOC: ED 14:47
DX: R10.10 Upper abdominal pain, unspecified (principal); I72.8 Aneurysm of other specified arteries; N28.1 Cyst of kidney, acquired
CPT/HCPCS: 36415; 71260; 74177; 80053; 83690; 85025; 96374; 96375; 99283; 99284; Q9967

== ENCOUNTER 2023-03-14 10:00 | Emergency (ER) | payer MEDICARE, OTHER ==
[2023-03-14 10:39] LABS: BASOPHILS # (AUTO) 0.1 10^3/uL (0.0-0.1); BASOPHILS % (AUTO) 1.4 %; EOSINOPHILS % (AUTO) 0.1 %; HCT - HEMATOCRIT 45.5 % (37.0-47.0); HGB - HEMOGLOBIN 15.3 g/dL (12.0-16.0); LYMPHOCYTES # (AUTO) 0.6 10^3/uL (1.5-3.5); LYMPHOCYTES % (AUTO) 7.1 %; MEAN CORPUSCULAR HEMOGLOBIN 31.5 pg (27.0-31.0); MEAN CORPUSCULAR HGB CONC 33.6 g/dL (32.0-36.0); MEAN CORPUSCULAR VOLUME 93.6 fL (81.0-99.0); MEAN PLATELET VOLUME 9.9 fL (7.9-10.8); MONOCYTES # (AUTO) 0.3 10^3/uL (0.0-1.0); NEUTROPHILS # (AUTO) 6.7 10^3/uL (1.5-6.6); PLT - PLATELET COUNT 319 10^3/uL (130-450); RED BLOOD COUNT 4.86 10^6/uL (4.20-5.40); RED CELL DISTRIBUTION WIDTH 12.6 % (12.0-15.0); WHITE BLOOD COUNT 7.7 x10^3/uL (4.8-10.8)
--- NOTE | 2023-03-14 10:44 | ED Physician Documentation ---
PD HPI ABD PAIN - Stated complaint Stated Complaint: SOA, ABD PX - Chief complaint Chief Complaint: Abd Pain - History obtained from History obtained from: Patient - History of Present Illness Timing - onset: Today Timing - duration: Hours Timing - details: Abrupt onset, Still present Quality: Cramping, Fullness/distended, Pain Location: Epigastric (main discomfort is epigastric/upper abd but feels fullness in throat when trying to swallow/eat. No vomiting. Does have some element of diffuse abd distension.) Improved by: Laying still. No: Eating Worsened by: Eating, Moving, Palpation. No: Breathing Associated symptoms: Nausea. No: Fever, Vomiting, Diarrhea, Dysuria Similar symptoms before: No diagnosis Recently seen: Emergency Dept (had similar recently and had IV fluids/meds with labs and CT abd that did not give diagnosis. Was improved. Seemed clinically like partial SBO. considered gastritis as well. Pt states normal eating and no symptosm in interim and now same symptoms again.) Review of Systems Constitutional: denies: Fever, Chills Nose: denies: Rhinorrhea / runny nose, Congestion Throat: denies: Sore throat Respiratory: denies: Cough GI: reports: Abdominal Pain, Abdominal Swelling, Nausea. 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 - Present Medications Home Medications: Ambulatory Orders Medication Instructions Recorded Confirmed Amlodipine Besylate 1 tab PO QPM 07/12/17 11/08/20 Brimonidine 0.2% Ophth Drops 1 drops EACHEYE BID 07/12/17 11/07/20 [Alphagan P 0.2% Ophth Drops] Calcium Citrate 3 tab PO DAILY 07/12/17 07/12/17 Cholecalciferol (Vitamin D3) 1 tab PO DAILY 07/12/17 11/07/20 [Vitamin D3] Latanoprost 0.005% Ophth Drops 1 drops EACHEYE QPM 07/12/17 11/08/20 [Xalatan Ophth Drops] Losartan [Cozaar] 25 mg PO DAILY 07/12/17 11/08/20 Simvastatin 10 mg PO QPM 07/12/17 11/08/20 HYDROcod/ACETAM 5/325 [[place] 5/325] 1 ea PO Q6H PRN #18 tablet 03/14/23 Ondansetron Odt [Zofran] 4 mg TL Q6H PRN #15 tablet 03/14/23 Pantoprazole [Protonix] 40 mg PO DAILY 30 Days #30 tablet 03/14/23 Sucralfate [Carafate] 1 gm PO ACHS 5 Days #200 ml 03/14/23 - Allergies Allergies/Adverse Reactions: Allergies Allergy/AdvReac Type Severity Reaction Status Date / Time morphine Allergy Rash Verified 03/06/23 14:51 - Social History Does the pt smoke?: No Smoking Status: Never smoker Does the pt drink ETOH?: No Does the pt have substance abuse?: No PD ED PE NORMAL - Vitals Vital signs reviewed: Yes - General General: Alert and oriented X 3, Well developed/nourished, Other (appears very uncomfortable and states "a lot of pain". ) - HEENT HEENT: Pharynx benign - Neck Neck: Supple, no meningeal sign, No adenopathy - Cardiac Cardiac: RRR, No murmur - Respiratory Respiratory: Clear bilaterally - Abdomen Abdomen: Normal bowel sounds, Soft, No organomegaly, Other (tender mainly in epigastric and left upper area with guarding and mild percussion tender. Lower abd not tender but abd generally moderately distended with increased bowel sounds. ) - Derm Derm: Normal color, Warm and dry - Extremities Extremities: No edema, No calf tenderness / cord - Neuro Neuro: Alert and oriented X 3, No motor deficit, Normal speech Results - Vitals Vitals: Vital Signs - 24 hr 03/14/23 03/14/23 03/14/23 10:12 14:15 16:25 Temperature 36.8 C Heart Rate 102 H 85 96 Respiratory 16 18 20 Rate Blood Pressure 133/90 H 136/88 H 155/92 H O2 Saturation 99 99 100 Oxygen O2 Source Room air - Labs Labs: Laboratory Tests 03/14/23 03/14/23 03/14/23 10:33 10:33 12:09 WBC 7.7 RBC 4.86 Hgb 15.3 Hct 45.5 MCV 93.6 MCH 31.5 H MCHC 33.6 RDW 12.6 Plt Count 319 MPV 9.9 Neut # (Auto) 6.7 H Lymph # (Auto) 0.6 L [place] # (Auto) 0.3 Eos # (Auto) 0.0 Baso # (Auto) 0.1 Absolute Nucleated RBC 0.00 Nucleated RBC % 0.0 Sodium 135 Potassium 3.7 Chloride 99 L Carbon Dioxide 26 Anion Gap 10.0 BUN 14 Creatinine 0.9 Estimated GFR (MDRD) 61 L Glucose 145 H Calcium 10.5 H Total Bilirubin 1.2 H AST 25 ALT 29 Alkaline Phosphatase 55 Total Protein 8.3 Albumin 5.4 Globulin 2.9 Albumin/Globulin Ratio 1.9 Lipase 59 Urine Color YELLOW Urine Clarity CLEAR Urine pH 6.5 Ur Specific [place] <=1.005 Urine Protein NEGATIVE Urine Glucose (UA) NEGATIVE Urine Ketones NEGATIVE Urine Occult Blood TRACE-LYSE Urine Nitrite NEGATIVE Urine Bilirubin NEGATIVE Urine Urobilinogen 0.2 (NORMAL) Ur Leukocyte Esterase TRACE H Urine RBC 0-5 Urine WBC 4-5 Ur Squamous Epith Cells RARE Squamous Urine Bacteria Rare Ur Microscopic Review INDICATED Urine Culture Comments INDICATED - Rads (name of study) abd/pelvic CT Relevant Findings:: Prelim report reviewed (no acute findings. ), EMP independent interpretation of test PD Medical Decision Making - ED course Complexity details: reviewed results (she had abd CT a week or so ago with prior episode that was normal, but she had started feeling better in ED by time of CT. repeated it now today as she was still distended and reasonable pain to see if would look abnormal while more symptoms are presnet, for concern of partial SBO or such. CT WNL. ), re-evaluated patient (she is still having discomfort epigastric area, mild distended but not firm. CT again normal and with symptoms still this time. Labs still normal with lipase, LFTs, CBC in particular. ), considered differential (recurring upper abd/esophageal discomfort and feeling of fullness, unable to eat/drink without increased discomfort. No vomiting. ) Departure - Departure Disposition: 01 Home, Self Care Clinical Impression: Acute upper abdominal pain Condition: Stable Record reviewed to determine appropriate education?: Yes Instructions: ED Epigastric Pain [facility] Follow-Up: Reba Choi PA-C [Primary Care Provider] - [facility] [Provider Group] Prescriptions: Sucralfate [Carafate] 1 gm PO ACHS 5 Days #200 ml HYDROcod/ACETAM 5/325 [[place] 5/325] 1 ea PO Q6H PRN #18 tablet PRN Reason: Pain Pantoprazole [Protonix] 40 mg PO DAILY 30 Days #30 tablet Ondansetron Odt [Zofran] 4 mg TL Q6H PRN #15 tablet PRN Reason: Nausea / Vomiting Comments: Your CT scan is again normal without any signs of obstruction or blockage. No obvious explanation for your pain. Seen again are the kidney cyst and the small splenic artery aneurysms. Can I would not anticipate these being the cause of your symptoms but still require follow-up referral through your PMD. Your current and recent upper abdominal pains I believe relate to an irritation of your stomach (gastritis or ulcer). This typically would not show well on blood tests or CT scan but would account for your symptoms. I would suggest bland food and frequent fluids to maintain good hydration. Acid reducing medicine of pantoprazole daily for a month. Coat the stomach and esophagus several times daily with medication called sacral fate for the next several days. Use ondansetron if needed for nausea. Hydrocodone/acetaminophen if needed for pain. Follow-up with your primary care this coming week, call Thursday for an appointment follow-up. I would also suggest following with the surgical office. Call Thursday for a follow-up appointment as well. Tell them that you were seen in the ER and that I suggested a urgent/prompt follow-up. Hopefully they will see you sometime this coming week. The reason there is to discuss endoscopy to look at the stomach and esophagus to better assess the cause for this pain. Return to the ER if needed. I sent your prescriptions to [facility] pharmacy. I am prescribing a short course of narcotic pain medication for you. These are potentially dangerous and addictive medications that should be used carefully. These medications may constipate you. Take an [id number] stool softener such as docusate twice daily with plenty of water while taking these medications. If you go 24 hours without a bowel movement, take [id number] MiraLAX, per package instructions. Do not drink or drive while taking these medications. If you received narcotic or sedating medications while in the emergency department do not drive for 24 hours. Store this medication in a safe, secure place and out of reach of children. It is a violation of federal law to give or sell this medication to another person or to use in a manner other than prescribed. The ED will not refill narcotic prescriptions, including prescriptions lost or stolen. You can dispose of unwanted medications at the [facility] office or at several pharmacies such as [facility]. Forms: PCP List Discharge Date/Time: 03/14/23 16:54
[2023-03-14 11:01] LABS: ALBUMIN 5.4 g/dL (3.2-5.5); ALBUMIN/GLOBULIN RATIO 1.9 (1.0-2.2); BILIRUBIN,TOTAL 1.2 mg/dL (0.2-1.0); CALCIUM 10.5 mg/dL (8.5-10.3); CREATININE 0.9 mg/dL (0.6-1.3); POTASSIUM 3.7 mmol/L (3.5-4.5); TOTAL PROTEIN 8.3 g/dL (6.4-8.9)
[2023-03-14] MEDS ORDERED: SODIUM CHLORIDE 0.9% 1,000 ML IV STA (11:15)
[2023-03-14] MEDS ORDERED: HYDROmorphone 0.5 MG/0.5 ML SYRINGE IVP STA (11:16)
[2023-03-14] MEDS ORDERED: METOCLOPRAMIDE 10 MG/2 ML VIAL IVP STA (11:16)
[2023-03-14] MEDS ORDERED: MAG HYDROX/AL HYDROX/SIMETH 30 ML UDC PO STA (11:16)
[2023-03-14 12:19] LABS: BILIRUBIN,URINE NEGATIVE (NEGATIVE); GLUCOSE, URINE (UA) NEGATIVE (NEGATIVE); KETONES,URINE (UA) NEGATIVE (NEGATIVE); LEUKOCYTE ESTERASE, URINE TRACE (NEGATIVE); NITRITE,URINE NEGATIVE (NEGATIVE); OCCULT BLOOD,URINE TRACE-LYSE (NEGATIVE); PH,URINE 6.5 PH (5.0-7.5); PROTEIN,URINE NEGATIVE (NEGATIVE); UROBILINOGEN,URINE 0.2 (NORMAL) E.U./dL (NORMAL)
[2023-03-14 12:20] LABS: CLARITY,URINE CLEAR (CLEAR)
[2023-03-14 12:30] LABS: BACTERIA,URINE Rare /HPF (None Seen); RBC,URINE 0-5 /HPF (0-5); SQUAMOUS EPITHELIAL CELL,UR RARE Squamous (<= Few)
[2023-03-14] MEDS ORDERED: KETOROLAC 15 MG/ML VIAL IVP STA (13:25)
[2023-03-14] MEDS ORDERED: HYDROmorphone 1 MG/ML CARPUJECT IVP STA (13:25)
--- NOTE | 2023-03-14 15:10 | CT Report ---
PROCEDURE: ABDOMEN/PELVIS WO INDICATIONS: abd pain and distended TECHNIQUE: A CT scan of the abdomen and pelvis was performed without the use of intravenous contrast. Images we re recorded and evaluated at appropriate window settings. Reformats: coronal and sagittal. For radiat ion dose reduction, the following was used: automated exposure control, adjustment of mA and/or kV ac cording to patient size. COMPARISON: 02/26/2023 FINDINGS: Image quality: Excellent. Lung bases and heart: Unremarkable. Liver: No solid mass. Gallbladder and biliary tree: Within normal limits. Spleen: No splenomegaly. Pancreas: No pancreatic ductal dilation. Adrenals: No adrenal nodule. Kidneys and ureters: A 12 cm water density cyst is seen along the superior aspect of the right kidney . Along the lateral aspect of the right kidney, there is an additional water density cyst seen that m easures 1.9 cm. Mild calcification can be seen along the margin of this cyst. No stones or hydronephr osis can be seen involving either kidney. Bowel and peritoneum: No bowel distension. No pathologic free fluid. Lymph nodes: No central or retroperitoneal adenopathy. Vessels: No infrarenal aortic aneurysm. A splenic artery aneurysm is again seen. PELVIS Reproductive organs: This patient is status post hysterectomy. No adnexal masses can be seen. Bladder: No wall thickness, accounting for underdistention. Pelvic lymph nodes: No pelvic adenopathy by size criteria. Bones: No aggressive osseous abnormality. L5-S1 postoperative hardware can be seen. Other: No significant ventral or inguinal hernia. IMPRESSION: No dilated loops of small bowel can be seen. No colonic abnormality is seen. No hydronephrosis or obstructing renal stone. Additional findings: Splenic artery aneurysm Right renal cysts Hysterectomy Lumbosacral fixation hardware Reviewed by: Raoul Bejarano MD on 03/14/2023 2:09 PM ANTONETTE Approved by: Raoul Bejarano MD on 03/14/2023 2:09 PM ANTONETTE Station ID: [id number]
[2023-03-14] MEDS ORDERED: fentaNYL 100 MCG/2 ML VIAL IVP STA (16:11)
[2023-03-14] MEDS ORDERED: diphenhydrAMINE INJ 50 MG/ML VIAL IVP STA (16:12)
[2023-03-14 16:30] VITALS: BP 155/92
== END 2023-03-14 16:54 | disposition home or self-care (01) ==
LOC: ED 10:00
DX: R10.13 Epigastric pain (principal)
CPT/HCPCS: 36415; 74176; 80053; 81001; 83690; 85025; 87086; 96374; 96375; 96376; 99284; 99285; A9270; J1170; J1200; J2765; 81003

== ENCOUNTER 2023-03-18 17:38 | Emergency (ER) | payer MEDICARE, OTHER ==
[2023-03-18 18:32] LABS: BASOPHILS # (AUTO) 0.1 10^3/uL (0.0-0.1); BASOPHILS % (AUTO) 1.2 %; EOSINOPHILS # (AUTO) 0.1 10^3/uL (0.0-0.7); EOSINOPHILS % (AUTO) 2.3 %; HCT - HEMATOCRIT 41.2 % (37.0-47.0); HGB - HEMOGLOBIN 13.9 g/dL (12.0-16.0); LYMPHOCYTES # (AUTO) 0.6 10^3/uL (1.5-3.5); LYMPHOCYTES % (AUTO) 12.7 %; MEAN CORPUSCULAR HEMOGLOBIN 31.6 pg (27.0-31.0); MEAN CORPUSCULAR HGB CONC 33.7 g/dL (32.0-36.0); MEAN CORPUSCULAR VOLUME 93.6 fL (81.0-99.0); MEAN PLATELET VOLUME 9.5 fL (7.9-10.8); MONOCYTES # (AUTO) 0.4 10^3/uL (0.0-1.0); MONOCYTES % (AUTO) 8.8 %; NEUTROPHILS # (AUTO) 3.3 10^3/uL (1.5-6.6); NEUTROPHILS % (AUTO) 74.8 %; PLT - PLATELET COUNT 250 10^3/uL (130-450); RED CELL DISTRIBUTION WIDTH 12.3 % (12.0-15.0); WHITE BLOOD COUNT 4.3 x10^3/uL (4.8-10.8)
[2023-03-18] MEDS: SODIUM CHLORIDE 0.9% 1,000 ML IV STA (18:32)
[2023-03-18 18:46] LABS: ALBUMIN 4.4 g/dL (3.2-5.5); BILIRUBIN,TOTAL 1.2 mg/dL (0.2-1.0); CALCIUM 9.7 mg/dL (8.5-10.3); CREATININE 1.1 mg/dL (0.6-1.3); POTASSIUM 3.9 mmol/L (3.5-4.5); TOTAL PROTEIN 6.6 g/dL (6.4-8.9)
--- NOTE | 2023-03-18 18:47 | ED Physician Documentation ---
History of Present Illness - Stated complaint Stated Complaint: ABD PX - Chief complaint Chief Complaint: Abd Pain - History obtained from History obtained from: Patient - History of Present Illness Timing: Today Pain level max: 4 Pain level now: 3 - Additonal information Additional information: Patient is a 77-year-old female who presents to the emergency department with abdominal pain ongoing for the past several weeks. Has been seen here x 2. Has had no significant lab abnormalities. No acute findings on CT scan with and without contrast. She saw her primary care provider today and stated that she had not been drinking much water over the past few days because it makes her stomach hurt. She states that she has had two 8 ounce glasses of water in the past 24 hours and has only urinated a small amount. She states that her doctor told her to come here for "a kidney check". She does not have any paperwork or know any further reason why she was referred to the emergency department. No dysuria or hematuria. No fevers. No chills. 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 - Present Medications Home Medications: Ambulatory Orders Medication Instructions Recorded Confirmed Amlodipine Besylate 1 tab PO QPM 07/12/17 11/08/20 Brimonidine 0.2% Ophth Drops 1 drops EACHEYE BID 07/12/17 11/07/20 [Alphagan P 0.2% Ophth Drops] Calcium Citrate 3 tab PO DAILY 07/12/17 07/12/17 Cholecalciferol (Vitamin D3) 1 tab PO DAILY 07/12/17 11/07/20 [Vitamin D3] Latanoprost 0.005% Ophth Drops 1 drops EACHEYE QPM 07/12/17 11/08/20 [Xalatan Ophth Drops] Losartan [Cozaar] 25 mg PO DAILY 07/12/17 11/08/20 Simvastatin 10 mg PO QPM 07/12/17 11/08/20 HYDROcod/ACETAM 5/325 [[place] 5/325] 1 ea PO Q6H PRN #18 tablet 03/14/23 Ondansetron Odt [Zofran] 4 mg TL Q6H PRN #15 tablet 03/14/23 Pantoprazole [Protonix] 40 mg PO DAILY 30 Days #30 tablet 03/14/23 Sucralfate [Carafate] 1 gm PO ACHS 5 Days #200 ml 03/14/23 - Allergies Allergies/Adverse Reactions: Allergies Allergy/AdvReac Type Severity Reaction Status Date / Time morphine Allergy Rash Verified 03/06/23 14:51 - Social History Does the pt smoke?: No Smoking Status: Never smoker Does the pt drink ETOH?: No Does the pt have substance abuse?: No - Immunizations Immunizations are current?: Yes PD ED PE NORMAL - Vitals Vital signs reviewed: Yes - General General: Alert and oriented X 3, No acute distress - HEENT HEENT: PERRL, Moist mucous membranes - Neck Neck: Supple, no meningeal sign - Cardiac Cardiac: RRR, Strong equal pulses - Respiratory Respiratory: No respiratory distress, Clear bilaterally - Abdomen Abdomen: Soft, Non tender, Non distended - Back Back: No CVA TTP - Derm Derm: Warm and dry - Extremities Extremities: No edema - Neuro Neuro: Alert and oriented X 3 - Psych Psych: Normal mood, Normal affect Results - Vitals Vitals: Vital Signs - 24 hr 03/18/23 03/18/23 03/18/23 17:41 18:15 19:58 Temperature 37.0 C Heart Rate 79 79 77 Respiratory 18 18 18 Rate Blood Pressure 150/100 H 142/92 H 152/95 H O2 Saturation 98 99 100 Oxygen O2 Source Room air - Labs Labs: Laboratory Tests 03/18/23 03/18/23 03/18/23 18:26 18:26 19:36 WBC 4.3 L RBC 4.40 Hgb 13.9 Hct 41.2 MCV 93.6 MCH 31.6 H MCHC 33.7 RDW 12.3 Plt Count 250 MPV 9.5 Neut # (Auto) 3.3 Lymph # (Auto) 0.6 L [place] # (Auto) 0.4 Eos # (Auto) 0.1 Baso # (Auto) 0.1 Absolute Nucleated RBC 0.00 Nucleated RBC % 0.0 Sodium 136 Potassium 3.9 Chloride 98 L Carbon Dioxide 33 H Anion Gap 5.0 L BUN 22 H Creatinine 1.1 Estimated GFR (MDRD) 48 L Glucose 109 H Calcium 9.7 Total Bilirubin 1.2 H AST 20 ALT 27 Alkaline Phosphatase 44 Total Protein 6.6 Albumin 4.4 Globulin 2.2 Albumin/Globulin Ratio 2.0 Lipase 37 Urine Color YELLOW Urine Clarity CLEAR Urine pH 7.0 Ur Specific [place] 1.010 Urine Protein NEGATIVE Urine Glucose (UA) NEGATIVE Urine Ketones TRACE Urine Occult Blood NEGATIVE Urine Nitrite NEGATIVE Urine Bilirubin NEGATIVE Urine Urobilinogen 0.2 (NORMAL) Ur Leukocyte Esterase NEGATIVE Ur Microscopic Review NOT INDICATED Urine Culture Comments NOT INDICATED PD Medical Decision Making - ED course Complexity details: reviewed results, re-evaluated patient, considered differential, d/w patient, d/w family ED course: Patient with dehydration from decreased oral intake. No significant lab abnormalities. Her bladder scan has a residual urine of 50 mL. Her urinalysis does not show any signs of infection. Given a liter of IV fluids and urinated twice. I will have her increase her oral intake at home and follow-up with her doctor for further care. Patient counseled regarding signs and symptoms for which I believe and urgent re-evaluation would be necessary. Patient with good understanding of and agreement to plan and is comfortable going home at this time This document was made in part using voice recognition software. While efforts are made to proofread this document, sound alike and grammatical errors may occur. Departure - Departure Disposition: 01 Home, Self Care Clinical Impression: Dehydration Condition: Good Instructions: ED Dehydration Follow-Up: Reba Choi PA-C [Primary Care Provider] - Within 1 week Comments: Please follow-up with your doctor for further care. Please return if you worsen. Make sure you are drinking plenty of fluids at home. You were dehydrated today and were given IV fluids. There is no sign of infection. Your laboratory testing does not show any significant abnormalities. Forms: PCP List Discharge Date/Time: 03/18/23 20:15
[2023-03-18 19:43] LABS: BILIRUBIN,URINE NEGATIVE (NEGATIVE); GLUCOSE, URINE (UA) NEGATIVE (NEGATIVE); KETONES,URINE (UA) TRACE mg/dL (NEGATIVE); LEUKOCYTE ESTERASE, URINE NEGATIVE (NEGATIVE); NITRITE,URINE NEGATIVE (NEGATIVE); OCCULT BLOOD,URINE NEGATIVE (NEGATIVE); PROTEIN,URINE NEGATIVE (NEGATIVE); UROBILINOGEN,URINE 0.2 (NORMAL) E.U./dL (NORMAL)
[2023-03-18 19:44] LABS: CLARITY,URINE CLEAR (CLEAR)
[2023-03-18 20:01] VITALS: BP 152/95; O2SAT 100
== END 2023-03-18 20:15 | disposition home or self-care (01) ==
LOC: ED 17:38
DX: E86.0 Dehydration (principal); I10 Essential (primary) hypertension; E78.00 Pure hypercholesterolemia, unspecified; Z79.899 Other long term (current) drug therapy
CPT/HCPCS: 36415; 51798; 80053; 81001; 81003; 83690; 85025; 87086; 96360; 96361; 99283

== ENCOUNTER 2023-03-19 13:01 | Emergency (ER) | payer MEDICARE, OTHER ==
--- NOTE | 2023-03-19 13:33 | ED Physician Documentation ---
PD HPI ABD PAIN - Stated complaint Stated Complaint: ABD PX - Chief complaint Chief Complaint: Abd Pain - History obtained from History obtained from: Patient, Family - Additional information Additional information: 77-year-old woman presents with her for the evaluation of lower abdominal pain. She has a very remote history of hysterectomy and appendectomy. She has been dealing with the current issues for a few weeks. It is on and off lower abdominal pain and bloating. She has had constipation with it but has had relief of the constipation with milk of magnesia with the most recent dose earlier this morning. She saw my partner on March 06 and had normal labs and a CT showing potential for small bowel bacterial overgrowth and a splenic artery aneurysm for which a vascular surgery referral was recommended. Subsequently seen again on March 14. Labs again relatively unremarkable, repeat CT scan was without interval change or abnormal diagnostic finding. So my partner last nigh t, there was some concern for dehydration due to poor oral intake. She had labs now notable for very mild prerenal azotemia with a BUN of 22, on the prior to visit it had been 14. She was administered IV fluids. Urinalysis was unremarkable. Had a colonoscopy 2 years ago without abnormal findings per the . 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 - Present Medications Home Medications: Ambulatory Orders Medication Instructions Recorded Confirmed Amlodipine Besylate 1 tab PO QPM 07/12/17 11/08/20 Brimonidine 0.2% Ophth Drops 1 drops EACHEYE BID 07/12/17 11/07/20 [Alphagan P 0.2% Ophth Drops] Calcium Citrate 3 tab PO DAILY 07/12/17 07/12/17 Cholecalciferol (Vitamin D3) 1 tab PO DAILY 07/12/17 11/07/20 [Vitamin D3] Latanoprost 0.005% Ophth Drops 1 drops EACHEYE QPM 07/12/17 11/08/20 [Xalatan Ophth Drops] Losartan [Cozaar] 25 mg PO DAILY 07/12/17 11/08/20 Simvastatin 10 mg PO QPM 07/12/17 11/08/20 HYDROcod/ACETAM 5/325 [[place] 5/325] 1 ea PO Q6H PRN #18 tablet 03/14/23 Ondansetron Odt [Zofran] 4 mg TL Q6H PRN #15 tablet 03/14/23 Pantoprazole [Protonix] 40 mg PO DAILY 30 Days #30 tablet 03/14/23 Sucralfate [Carafate] 1 gm PO ACHS 5 Days #200 ml 03/14/23 Dicyclomine [Bentyl] 1 - 2 tab PO QID PRN #20 cap 03/19/23 rifAXIMin [Xifaxan] 550 mg PO TID 14 Days #42 tab 03/19/23 - Allergies Allergies/Adverse Reactions: Allergies Allergy/AdvReac Type Severity Reaction Status Date / Time morphine Allergy Rash Verified 03/19/23 13:16 - Living Situation Living Situation: reports: With spouse/s.o. - Social History Does the pt smoke?: No Smoking Status: Never smoker Does the pt drink ETOH?: No Does the pt have substance abuse?: No - Immunizations Immunizations are current?: Yes PD ED PE NORMAL - Vitals Vital signs reviewed: Yes - General General: Alert and oriented X 3, No acute distress - Abdomen Abdomen: Other (Hyperactive bowel sounds without tenderness. No surgical signs.) - Back Back: No CVA TTP, No spinal TTP - Derm Derm: Normal color, Warm and dry Results - Vitals Vitals: Vital Signs - 24 hr 03/19/23 03/19/23 13:09 14:32 Temperature 36.5 C 36.6 C Heart Rate 83 65 Respiratory 18 18 Rate Blood Pressure 131/98 H 147/92 H O2 Saturation 98 99 Oxygen O2 Source Room air - Labs Labs: Laboratory Tests 03/19/23 03/19/23 13:39 13:39 WBC 5.8 RBC 4.19 L Hgb 13.1 Hct 39.9 MCV 95.2 MCH 31.3 H MCHC 32.8 RDW 12.5 Plt Count 256 MPV 9.8 Neut # (Auto) 4.6 Lymph # (Auto) 0.6 L [place] # (Auto) 0.5 Eos # (Auto) 0.1 Baso # (Auto) 0.1 Absolute Nucleated RBC 0.00 Nucleated RBC % 0.0 Sodium 137 Potassium 4.2 Chloride 100 L Carbon Dioxide 31 Anion Gap 6.0 BUN 17 Creatinine 0.9 Estimated GFR (MDRD) 61 L Glucose 120 H Calcium 9.1 Total Bilirubin 0.8 AST 18 ALT 22 Alkaline Phosphatase 42 Total Protein 6.2 L Albumin 4.2 Globulin 2.0 L Albumin/Globulin Ratio 2.1 Lipase 43 PD Medical Decision Making - ED course Complexity details: reviewed results (CBC reviewed and normal. CMP reviewed with resolution of the previously seen prerenal azotemia and otherwise with unremarkable findings.) ED course: 77-year-old woman with ongoing abdominal pain. Previous workup was concerning for small bowel intestinal overgrowth and we will treat this today. Her labs are normal/unremarkable with resolution of prerenal azotemia. Departure - Departure Disposition: Home, Self Care Clinical Impression: Abdominal pain, Small intestinal bacterial overgrowth (SIBO) Condition: Good Record reviewed to determine appropriate education?: Yes Instructions: ED Abdominal Pain Female Non-Specific Abdominal Pain Prescriptions: Dicyclomine [Bentyl] 1 - 2 tab PO QID PRN #20 cap PRN Reason: Abdominal Pain rifAXIMin [Xifaxan] 550 mg PO TID 14 Days #42 tab Comments: I sent your prescriptions electronically to the [facility] in [place]. As discussed and giving something for the cramps and an antibiotic for the possibility of what is known as small intestinal bacterial overgrowth based on a prior CT scan. Follow-up with the vascular surgeon as you are already planning regarding the incidentally found splenic artery aneurysm. Return for new or worsening symptoms. Forms: PCP List Discharge Date/Time: 03/19/23 14:37
[2023-03-19] MEDS ORDERED: SODIUM CHLORIDE 0.9% 1,000 ML IV STA (13:34)
[2023-03-19] MEDS ORDERED: DICYCLOMINE 10 MG CAPSULE PO STA (13:34)
[2023-03-19 13:50] LABS: BASOPHILS # (AUTO) 0.1 10^3/uL (0.0-0.1); EOSINOPHILS # (AUTO) 0.1 10^3/uL (0.0-0.7); EOSINOPHILS % (AUTO) 1.6 %; HCT - HEMATOCRIT 39.9 % (37.0-47.0); HGB - HEMOGLOBIN 13.1 g/dL (12.0-16.0); LYMPHOCYTES # (AUTO) 0.6 10^3/uL (1.5-3.5); LYMPHOCYTES % (AUTO) 9.7 %; MEAN CORPUSCULAR HEMOGLOBIN 31.3 pg (27.0-31.0); MEAN CORPUSCULAR HGB CONC 32.8 g/dL (32.0-36.0); MEAN CORPUSCULAR VOLUME 95.2 fL (81.0-99.0); MEAN PLATELET VOLUME 9.8 fL (7.9-10.8); MONOCYTES # (AUTO) 0.5 10^3/uL (0.0-1.0); NEUTROPHILS # (AUTO) 4.6 10^3/uL (1.5-6.6); NEUTROPHILS % (AUTO) 79.5 %; PLT - PLATELET COUNT 256 10^3/uL (130-450); RED BLOOD COUNT 4.19 10^6/uL (4.20-5.40); RED CELL DISTRIBUTION WIDTH 12.5 % (12.0-15.0); WHITE BLOOD COUNT 5.8 x10^3/uL (4.8-10.8)
[2023-03-19 14:07] LABS: ALBUMIN 4.2 g/dL (3.2-5.5); ALBUMIN/GLOBULIN RATIO 2.1 (1.0-2.2); BILIRUBIN,TOTAL 0.8 mg/dL (0.2-1.0); CALCIUM 9.1 mg/dL (8.5-10.3); CREATININE 0.9 mg/dL (0.6-1.3); POTASSIUM 4.2 mmol/L (3.5-4.5); TOTAL PROTEIN 6.2 g/dL (6.4-8.9)
[2023-03-19 14:35] VITALS: BP 147/92; O2SAT 99
== END 2023-03-19 14:37 | disposition home or self-care (01) ==
LOC: ED 13:01
DX: K63.89 Other specified diseases of intestine (principal); I10 Essential (primary) hypertension
CPT/HCPCS: 36415; 80053; 83690; 85025; 99283; A9270

== ENCOUNTER 2023-03-25 08:24 | Outpatient (CLI) | payer MEDICARE, OTHER ==
[2023-03-25 12:52] LABS: THYROID STIMULATING HORMONE 0.9 uIU/mL (0.34-5.60)
[2023-03-25 14:33] LABS: CALCIUM 9.2 mg/dL (8.5-10.3); CREATININE 1.1 mg/dL (0.4-1.0); POTASSIUM 4.5 mmol/L (3.5-5.0)
== END 2023-03-25 08:25 | disposition home or self-care (01) ==
LOC: LAB.N 08:24
PROVIDERS: ATTEND Physician Assistant Medical
DX: E04.1 Nontoxic single thyroid nodule (principal)
CPT/HCPCS: 36415; 80048; 83970; 84443

== ENCOUNTER 2023-04-03 12:25 | Outpatient (CLI) | payer MEDICARE, OTHER ==
--- NOTE | 2023-04-03 16:09 | Ultrasound Report ---
PROCEDURE: Head or Neck Soft Tissue INDICATIONS: THYROID NODULE TECHNIQUE: Real-time scanning was performed of the thyroid gland, with image documentation. COMPARISON: CT chest 02/14/2023, 02/28/2017 FINDINGS: Right: Thyroid lobe measures 4.6 x 1.7 x 1.4 cm, and is homogeneous in echotexture. Left: Thyroid lobe measures 4.1 x 1.3 x 1.4 cm, and is homogenous in echotexture. Isthmus: Size mm thick. Nodule number: One Location: Left inferior Size: 0.8 x 0.7 x 0.4 cm. Composition: Solid. Echogenicity: Hypoechoic. Shape: wider than tall. Margins: Smooth (0 points). Echogenic foci: None (0 points). Total points: 4 ACR TI-RADS category: 4. IMPRESSION: Subcentimeter left thyroid lobe low-attenuation focus. Based on size, no additional follow-up is vincent mmended. It is noted on the 2016 CT chest a right-sided low-attenuation focus was present. This is no t visualized on current exam. No discrete left lobe focus is clearly identified on CT chest of either 2022 or 2016 ACR TI-RADS definitions and recommendations: TI-RADS 1 (benign): 0 points. FNA not needed. TI-RADS 2 (not suspicious): 2 points. FNA not needed. TI-RADS 3 (mildly suspicious): 3 points. "FNA if 2.5 cm or larger, follow up if 1.5 cm or larger (at 1, 3, and 5 years). TI-RADS 4 (moderately suspicious): 4-6 points. "FNA if 1.5 cm or larger, follow up if 1 cm or larger (at 1, 2, 3, and 5 years). TI-RADS 5 (highly suspicious): 7 points or more. "FNA if 1 cm or larger, follow up if 0.5 cm or larger (every year for 5 years). Reviewed by: Mercy Soares MD on 04/03/2023 4:08 PM PDT Approved by: Mercy Soares MD on 04/03/2023 4:08 PM PDT Station ID: [id number]
== END 2023-04-03 12:26 | disposition home or self-care (01) ==
LOC: DI 12:25
PROVIDERS: ATTEND Physician Assistant Medical
DX: E04.1 Nontoxic single thyroid nodule (principal)

== ENCOUNTER 2023-06-30 08:13 | Outpatient (CLI) | payer MEDICARE, OTHER ==
--- NOTE | 2023-07-09 16:56 | Mammography Report ---
BILATERAL DIGITAL SCREENING MAMMOGRAM 3D/2D: 06/30/2023 CLINICAL: Routine screening. Comparison is made to exams dated: 07/19/2020 mammogram, 06/25/2020 mammogram - [facility], 06/21 mammogram, and 05/24/2018 mammogram - outside location. Both breasts are heterogeneously dense, which may obscure small masses (category c / 51-75% glandular tissue). No significant masses, calcifications, or other findings are seen in either breast. There has been no significant interval change. IMPRESSION: NEGATIVE There is no mammographic evidence of malignancy. A 1 year screening mammogram is recommended. Based on the Tyrer Cuzick model (a risk assessment model) the patients lifetime risk is 5.0% and her 10 year risk is 5.0%. According to the ACR, ACS, and NCCN guidelines, an annual breast MRI exam analilia g with mammogram is recommended if the patients lifetime risk is 20% or greater. This exam was interpreted at Station ID: [id number]. NOTE: For mammograms, a report in lay terms will be sent to the patient. Approximately 15% of breast malignancies will not be visualized mammographically. In the management of a palpable breast mass, a negative mammogram must not discourage biopsy of a clinically suspicious lesion. Electronically Signed By: Ashkan [email or web address]/[email or web address]:07/09/2023 15:19:41 letter sent: No_Letter ACR BI-RADS Category 1: Negative 3341F PARENCHYMAL PATTERN: (D) - The breast(s) demonstrate(s) heterogeneously dense fibroglandular kan gil. BI-RADS CATEGORY: (1) - 1 Mammogram [id number] 1 year screening LATERALITY: (B)
== END 2023-06-30 08:14 | disposition home or self-care (01) ==
LOC: DI.N 08:13
DX: Z12.31 Encounter for screening mammogram for malignant neoplasm of breast (principal); R92.333 Mammographic heterogeneous density, bilateral breasts

== ENCOUNTER 2023-07-07 17:06 | Outpatient (CLI) | payer MEDICARE, OTHER | END 2023-07-07 17:07 | disposition critical access hospital (66) | LOC: EMS 17:06 | DX: S08.0XXA Avulsion of scalp, initial encounter (principal); S79.911A Unspecified injury of right hip, initial encounter; W10.1XXA Fall (on)(from) sidewalk curb, initial encounter; Y93.01 Activity, walking, marching and hiking; Y92.414 Local residential or business street as the place of occurrence of the external cause | CPT/HCPCS: A0425; A0427 ==

== ENCOUNTER 2023-07-07 17:31 | Inpatient (IN) | payer MEDICARE, OTHER ==
[2023-07-07] MEDS ORDERED: HYDROmorphone 1 MG/ML CARPUJECT IVP STA ×3 (17:42→21:55)
[2023-07-07] MEDS ORDERED: TETANUS/DIPHTHERIA/PERTUSSIS 0.5 ML SYRINGE IM ONE (17:43)
--- NOTE | 2023-07-07 17:45 | ED Physician Documentation ---
History of Present Illness - Stated complaint Stated Complaint: FALL - Additonal information Additional information: 77-year-old female here for evaluation of closed head injury and right hip pain. Mechanical fall off a curb onto the right hip. She did strike her head but no loss consciousness. No anticoagulation. She has a right occiput hematoma/laceration. Also pain in the right hip with malrotation and mild shortening. Uncertain of last tetanus. Presents alert with no focal neurodeficits. Past medical history most significant for hypertension and insomnia. 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 - Present Medications Home Medications: Ambulatory Orders Medication Instructions Recorded Confirmed Amlodipine Besylate 1 tab PO QPM 07/12/17 07/07/23 Brimonidine 0.2% Ophth Drops 1 drops EACHEYE BID 07/12/17 11/07/20 [Alphagan P 0.2% Ophth Drops] Calcium Citrate 3 tab PO DAILY 07/12/17 07/12/17 Cholecalciferol (Vitamin D3) 1 tab PO DAILY 07/12/17 11/07/20 [Vitamin D3] Latanoprost 0.005% Ophth Drops 1 drops EACHEYE QPM 07/12/17 11/08/20 [Xalatan Ophth Drops] Losartan [Cozaar] 25 mg PO DAILY 07/12/17 07/07/23 Simvastatin 10 mg PO QPM 07/12/17 11/08/20 HYDROcod/ACETAM 5/325 [[place] 5/325] 1 ea PO Q6H PRN #18 tablet 03/14/23 Ondansetron Odt [Zofran] 4 mg TL Q6H PRN #15 tablet 03/14/23 Pantoprazole [Protonix] 40 mg PO DAILY 30 Days #30 tablet 03/14/23 Sucralfate [Carafate] 1 gm PO ACHS 5 Days #200 ml 03/14/23 Dicyclomine [Bentyl] 1 - 2 tab PO QID PRN #20 cap 03/19/23 rifAXIMin [Xifaxan] 550 mg PO TID 14 Days #42 tab 03/19/23 Zolpidem Tartrate [Ambien] 07/07/23 - Allergies Allergies/Adverse Reactions: Allergies Allergy/AdvReac Type Severity Reaction Status Date / Time morphine Allergy Rash Verified 07/07/23 17:59 - Social History Does the pt smoke?: No Smoking Status: Never smoker Does the pt drink ETOH?: No Does the pt have substance abuse?: No - Immunizations Immunizations are current?: Yes PD ED PE NORMAL - General General: Alert and oriented X 3, No acute distress - HEENT HEENT: Other (Negative for hemotympanums, Brenner sign and raccoon eyes). No: Atraumatic (3 cm right posterior occipital laceration.) - Neck Neck: Supple, no meningeal sign, Other (No posterior neck pain tenderness. Full range of motion without pain elicited.) - Cardiac Cardiac: RRR, No murmur - Respiratory Respiratory: No respiratory distress, Clear bilaterally - Abdomen Abdomen: Normal bowel sounds, Soft - Back Back: No CVA TTP - Derm Derm: Normal color, Warm and dry, No rash - Extremities Extremities: Other (Tenderness with mild palpation of the right proximal lateral hip without ecchymosis. 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 Relevant findings are: Rate: Rate (enter#) (87) Rhythm: NSR [place]: Normal Intervals: Normal IN. No: Prolonged QT QRS: Low voltage Compare to prior EKG: Old EKG unavailable Computer interpretation: Agree with computer - Labs Labs: Laboratory Tests 07/07/23 07/07/23 07/07/23 17:50 17:50 19:50 WBC 20.5 H RBC 4.01 L Hgb 12.4 Hct 38.7 MCV 96.5 MCH 30.9 MCHC 32.0 RDW 12.4 Plt Count 307 MPV 10.6 Neut # (Auto) Not Reportable Lymph # (Auto) Not Reportable [place] # (Auto) Not Reportable Eos # (Auto) Not Reportable Baso # (Auto) Not Reportable Absolute Nucleated RBC Not Reportable Total Counted 100 Band Neuts % (Manual) 3 Abnorm Lymph % (Manual) 0 Metamyelocytes % 1 H Nucleated RBC % Not Reportable Neutrophils # (Manual) 19.1 H Lymphocytes # (Manual) 0.8 L Monocytes # (Manual) 0.4 Eosinophils # (Manual) 0.0 Basophils # (Manual) 0.0 Differential Comment MANUAL DIFFERENTIAL Platelet Estimate NORMAL (130-450,000) Platelet Morphology NORMAL APPEARANCE RBC Morph Micro Appear NORMAL APPEARANCE Sodium 138 Potassium 4.1 Chloride 102 Carbon Dioxide 23 Anion Gap 13.0 BUN 19 Creatinine 1.3 Estimated GFR (MDRD) 40 L Glucose 205 H Calcium 9.9 Total Bilirubin 0.7 AST 20 ALT 14 Alkaline Phosphatase 84 Total Protein 6.8 Albumin 4.7 Globulin 2.1 Albumin/Globulin Ratio 2.2 Lipase 27 Blood Type A POSITIVE Antibody Screen NEGATIVE Crossmatch IS Only See Detail - Rads (name of study) cxr Relevant Findings:: Final report received (no acute cardiopulmonary process) right hip xr Relevant Findings:: Final report received (subcapital right femoral neck fracture) Procedures - Laceration (location) right scalp Length in cm: 2.5 Wound type: Irregular, Into subcut fat Wound preparation: Chlorhexadine, Irrigated copiously NS Skin layer closure: [place] (3) Other: Patient tolerated well, Tetanus booster given PD Medical Decision Making - ED course Complexity details: reviewed results, re-evaluated patient, d/w patient ED course: 77-year-old female with past medical history Mo significant for hypertension insomnia presents emergency department after ground-level fall off a curb onto her right side. She did strike her head but there was no loss consciousness. She had a 3 cm right posterior scalp laceration which I closed with 3 joey. Tetanus was updated today in the ER. Subsequent CT of the head and neck showed no acute intercranial or traumatic findings. X-ray of the hip and pelvis shows a subcapital right femoral neck fracture. This was discussed with Dr. Wharton the orthopedist on-call. Patient will be admitted to the hospital with orthopedics consulting and hospitalist admitting. Plan for likely OR tomorrow. A CBC and electrolytes were completed. She does have white blood cell count elevation at 20,000. Suspect this is marginalization. Chest x-ray showed no focal infiltrates. Her electrolytes showed a mildly elevated blood glucose of 205. Patient does not have any history that is known of diabetes. [address] [facility] who agrees to admit the patient for further evaluation and management of her right hip fracture. He is requesting a urinalysis and an EKG for preoperative clearance. Dr. Harding has also indicated to me that the patient will have surgery about 7:30 in the morning. He has requested that I typed and crossed the patient for 2 units of blood which I have also ordered. Departure - Departure Disposition: 66 [facility] DC/Xfer Clinical Impression: Ground-level fall Closed right hip fracture Qualifiers: Encounter type: initial encounter Qualified Code(s): S72.001A - Fracture of unspecified part of neck of right femur, initial encounter for closed fracture Condition: Stable Record reviewed to determine appropriate education?: Yes
[2023-07-07 17:59] LABS: BASOPHILS % (AUTO) 0.6 %; HCT - HEMATOCRIT 38.7 % (37.0-47.0); HGB - HEMOGLOBIN 12.4 g/dL (12.0-16.0); LYMPHOCYTES % (AUTO) 2.4 %; MEAN CORPUSCULAR HEMOGLOBIN 30.9 pg (27.0-31.0); MEAN CORPUSCULAR VOLUME 96.5 fL (81.0-99.0); MEAN PLATELET VOLUME 10.6 fL (7.9-10.8); MONOCYTES % (AUTO) 5.5 %; NEUTROPHILS % (AUTO) 90.9 %; PLT - PLATELET COUNT 307 10^3/uL (130-450); RED BLOOD COUNT 4.01 10^6/uL (4.20-5.40); RED CELL DISTRIBUTION WIDTH 12.4 % (12.0-15.0); WHITE BLOOD COUNT 20.5 x10^3/uL (4.8-10.8)
[2023-07-07 18:02] LABS: ABNORMAL LYMPHS % (MANUAL) 0 %
[2023-07-07 18:17] LABS: ALBUMIN 4.7 g/dL (3.2-5.5); ALBUMIN/GLOBULIN RATIO 2.2 (1.0-2.2); BILIRUBIN,TOTAL 0.7 mg/dL (0.2-1.0); CALCIUM 9.9 mg/dL (8.5-10.3); CREATININE 1.3 mg/dL (0.6-1.3); POTASSIUM 4.1 mmol/L (3.5-4.5); TOTAL PROTEIN 6.8 g/dL (6.4-8.9)
--- NOTE | 2023-07-07 18:42 | XRAY Report ---
PROCEDURE: Chest 1 View X-Ray INDICATIONS: GLF TECHNIQUE: One view of the chest was acquired. COMPARISON: 10/05/2019 FINDINGS: Surgical changes and devices: None. Lungs and pleura: No pleural effusions or pneumothorax. Lungs are clear. Mediastinum: Mediastinal contours appear normal. Heart size is normal. Bones and chest wall: No suspicious bony lesions. Overlying soft tissues appear unremarkable. IMPRESSION: No acute cardiopulmonary process. Reviewed by: Kip Zamudio on 07/07/2023 5:[address] [facility] Approved by: Kip Zamudio on 07/07/2023 5:[address] [facility] Station ID: [id number]
--- NOTE | 2023-07-07 18:44 | XRAY Report ---
PROCEDURE: Hip w/Pelvis 2-3V RT INDICATIONS: GLF; rotation and shortening TECHNIQUE: AP pelvis with lateral view(s) of the right hip(s). COMPARISON: None. FINDINGS: Bones: Pedicular screw and mirian fixation spanning L5-S1. Subcapital right femoral neck fracture. Soft tissues: No suspicious soft tissue calcifications or masses. IMPRESSION: Subcapital right femoral neck fracture. Reviewed by: Kip Zamudio on 07/07/2023 5:42 PM [facility] Approved by: Kip Zamudio on 07/07/2023 5:42 PM [facility] Station ID: [id number]
[2023-07-07 18:46] LABS: BAND NEUTROPHILS % (MANUAL) 3 %; LYMPHOCYTES # (MANUAL) 0.8 10^3/uL (1.5-3.5); LYMPHOCYTES % (MANUAL) 4 %; METAMYELOCYTES % (MANUAL) 1 %; MONOCYTES # (MANUAL) 0.4 10^3/uL (0.0-1.0); NEUTROPHILS # (MANUAL) 19.1 10^3/uL (1.5-6.6)
[2023-07-07 18:47] LABS: DIFFERENTIAL COMMENT MANUAL DIFFERENTIAL; PLATELET ESTIMATE, MANUAL NORMAL (130-450,000) (NORMAL); PLATELET MORPHOLOGY NORMAL APPEARANCE (NORMAL); RBC MORPHOLOGY (MULTIPLE) NORMAL APPEARANCE (NORMAL)
--- NOTE | 2023-07-07 19:19 | CT Report ---
PROCEDURE: HEAD WO INDICATIONS: GLF; occiput laceration TECHNIQUE: Noncontrast 4.5 mm thick angled axial sections acquired from the foramen magnum to the vertex. For r adiation dose reduction, the following was used: automated exposure control, adjustment of mA and/or kV according to patient size. COMPARISON: CT cervical spine 07/07/2023 FINDINGS: Image quality: Excellent. The ventricular system and cortical sulci demonstrate atrophy, consistent for patient's stated age. There are areas of hypodensity in the periventricular and subcortical whi te matter. There is no acute intra or extra-axial fluid collection. No acute hemorrhage, mass lesio n or midline shift. Brainstem is unremarkable. Globes are symmetrical. Sinuses are aerated. Osseous structures are intact. IMPRESSION: 1. No acute intracranial process. 2. Moderate atrophy and chronic microvascular ischemic changes. Reviewed by: Mercy Soares MD on 07/07/2023 7:18 PM PST Approved by: Mercy Soares MD on 07/07/2023 7:18 PM PST Station ID: [id number]
--- NOTE | 2023-07-07 19:20 | CT Report ---
PROCEDURE: CERVICAL SPINE WO INDICATIONS: glf TECHNIQUE: Noncontrast 3 mm thick sections acquired from the skull base to the T4 level. Sagittal and coronal r eformats were then constructed. For radiation dose reduction, the following was used: automated exp osure control, adjustment of mA and/or kV according to patient size. COMPARISON: CT brain 07/07/2023.. FINDINGS: Image quality: Excellent. Bones: No fractures or dislocations. Visualized superior ribs are intact. Multilevel degenerative disc space narrowing. Soft tissues: Prevertebral soft tissues are normal in thickness. No paravertebral hematomas. No ap ical pneumothoraces. IMPRESSION: No visualized fracture or dislocation. Reviewed by: Mercy Soares MD on 07/07/2023 7:19 PM PST Approved by: Mercy Soares MD on 07/07/2023 7:19 PM PST Station ID: [id number]
[2023-07-07] MEDS ORDERED: ONDANSETRON ODT 4 MG TABLET TL STA (19:23)
[2023-07-07] MEDS ORDERED: SODIUM CHLORIDE 0.9% 1,000 ML IV STA (20:37)
--- NOTE | 2023-07-07 21:24 | CONSULTATION NOTE ---
Referring Provider Name of Referring Provider:: AURE parikh Consult Date: 07/07/23 History of Present Illness - Admitted From Admitted From:: ED - History of Present Illness HPI Comment/Other: Twyla Moya is a 77-year-old [place] woman who apparently stumbled attempting to step over the curb today on her afternoon walk. She fell landing on the right hip as a result of this accident. Noted immediate pain in her right side and hip. Also noted a closed head injury as a result of the fall. She was unab le to stand or weight-bear on the right side after her fall. She was taken by ambulance to the emergency room here at [facility]. Her evaluation included x-rays of her right hip showing a displaced right femoral neck fracture. She had her scalp laceration repaired in the emergency room. She subsequently was admitted to the medical service for further evaluation of a closed and new injury as well as a right hip fracture. Examination: Patient's right hip was evaluated in the emergency room. Her right leg was shortened and externally rotated. There was painful range of motion to her right hip. She was able to voluntarily move her toes without difficulty. Neurovascular is intact distally. X-rays: X-rays of the right hip showed a displaced right femoral neck fracture. Assessment: 1. Closed right displaced femoral neck fracture #2 history of hypertension #3 history of hypercholesterolemia #4 closed head injury Plan: Patient is being admitted to the medical service. They will continue with further workup and evaluation of her closed head injury. Assuming that she has been cleared medically we will plan then on proceeding with hip surgery in the morning. She has been scheduled for 730 operating time. Will plan on a cementless Synergy bipolar hip endoprostheses. I have discussed the pros and cons of surgery including anesthesia risks infection blood loss dislocation new fractures blood clots etc. They understand the potential risk and benefits of surgery. I have answered all their questions. They wish to proceed with surgery as planned. Surgical consent was signed and witnessed. 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 - POLST Patient has POLST: No Meds/Allgy - Home Medications Home Medications: Ambulatory Orders Medication Instructions Recorded Confirmed Amlodipine Besylate 1 tab PO QPM 07/12/17 07/07/23 Brimonidine 0.2% Ophth Drops 1 drops EACHEYE BID 07/12/17 11/07/20 [Alphagan P 0.2% Ophth Drops] Calcium Citrate 3 tab PO DAILY 07/12/17 07/12/17 Cholecalciferol (Vitamin D3) 1 tab PO DAILY 07/12/17 11/07/20 [Vitamin D3] Latanoprost 0.005% Ophth Drops 1 drops EACHEYE QPM 07/12/17 11/08/20 [Xalatan Ophth Drops] Losartan [Cozaar] 25 mg PO DAILY 07/12/17 07/07/23 Simvastatin 10 mg PO QPM 07/12/17 11/08/20 HYDROcod/ACETAM 5/325 [[place] 5/325] 1 ea PO Q6H PRN #18 tablet 03/14/23 Ondansetron Odt [Zofran] 4 mg TL Q6H PRN #15 tablet 03/14/23 Pantoprazole [Protonix] 40 mg PO DAILY 30 Days #30 tablet 03/14/23 Sucralfate [Carafate] 1 gm PO ACHS 5 Days #200 ml 03/14/23 Dicyclomine [Bentyl] 1 - 2 tab PO QID PRN #20 cap 03/19/23 rifAXIMin [Xifaxan] 550 mg PO TID 14 Days #42 tab 03/19/23 Zolpidem Tartrate [Ambien] 07/07/23 - Allergies Allergies/Adverse Reactions: Allergies Allergy/AdvReac Type Severity Reaction Status Date / Time morphine Allergy Rash Verified 07/07/23 17:59 Exam - Vital Signs Vital Signs: Vital Signs x48h Temp Pulse Resp BP Pulse Ox 07/07/23 21:00 87 15 119/73 96 07/07/23 20:00 107 H 15 122/79 98 07/07/23 19:30 87 16 119/79 99 07/07/23 17:55 88 99 07/07/23 17:48 36.6 C 87 17 123/106 H 98 Conclusion/Plan - Lab Results Fish Bones: 07/07/23 17:50 07/07/23 17:50
[2023-07-07] MEDS ORDERED: oxyCODONE 5 MG TABLET PO PRN (21:41)
[2023-07-07] MEDS ORDERED: SODIUM CHLORIDE FLUSH 0.9% 10 ML SYRINGE IVP PRN (21:41)
[2023-07-07] MEDS ORDERED: ACETAMINOPHEN 325 MG TABLET PO PRN (21:41)
[2023-07-07] MEDS ORDERED: ONDANSETRON 4 MG/2 ML VIAL IVP PRN (21:41)
[2023-07-07] MEDS ORDERED: SODIUM CHLORIDE 0.9% 1,000 ML IV SCH (22:00)
--- NOTE | 2023-07-07 22:03 | HISTORY & PHYSICAL EXAMINATION ---
Chief Complaint - Chief Complaint Chief Complaint: Mechanical fall History of Present Illness - Admitted From Admitted From:: Home - History Obtained From Records Reviewed: yes History obtained from: Patient, ER team Exam Limitations: none - History of Present Illness HPI Comment/Other: Twyla Moya is a 77-year-old [place] woman who apparently stumbled attempting to step over the curb today on her afternoon walk. She fell landing on the right hip as a result of this accident. Noted immediate pain in her right side and hip. Also noted a closed head injury as a result of the fall. She was unable to stand or weight-bear on the right side after her fall. She was taken by ambulance to the emergency room here at [facility]. Her evaluation included x-rays of her right hip showing a displaced right femoral neck fracture. She had her scalp laceration repaired in the emergency room. 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, not on any blood thinners, spoke with her and her and they are aware of the my role as telehospitalist Patient does not have any hx of angina, decompensated heart failure, active cardiac arrhytmias or significant valvulvar heart disease, patient can easily achieve > 4 Mets of work activity she had a renal cyst drained in Apr of this year with no complications History - Past Medical History Cardiovascular: reports: Hypertension, High cholesterol Respiratory: reports: None Endocrine/Autoimmune: reports: None HEENT: reports: Glaucoma MRSA Hx?: No - Past Surgical History General: reports: 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 - POLST Patient has POLST: No Meds/Allgy - Home Medications Home Medications: Ambulatory Orders Medication Instructions Recorded Confirmed Amlodipine Besylate 1 tab PO QPM 07/12/17 07/07/23 Brimonidine 0.2% Ophth Drops 1 drops EACHEYE BID 07/12/17 11/07/20 [Alphagan P 0.2% Ophth Drops] Calcium Citrate 3 tab PO DAILY 07/12/17 07/12/17 Cholecalciferol (Vitamin D3) 1 tab PO DAILY 07/12/17 11/07/20 [Vitamin D3] Latanoprost 0.005% Ophth Drops 1 drops EACHEYE QPM 12/03/17 04/01/21 [Xalatan Ophth Drops] Losartan [Cozaar] 25 mg PO DAILY 07/12/17 07/07/23 Simvastatin 10 mg PO QPM 07/12/17 11/08/20 HYDROcod/ACETAM 5/325 [[place] 5/325] 1 ea PO Q6H PRN #18 tablet 03/14/23 Ondansetron Odt [Zofran] 4 mg TL Q6H PRN #15 tablet 03/14/23 Pantoprazole [Protonix] 40 mg PO DAILY 30 Days #30 tablet 03/14/23 Sucralfate [Carafate] 1 gm PO ACHS 5 Days #200 ml 03/14/23 Dicyclomine [Bentyl] 1 - 2 tab PO QID PRN #20 cap 03/19/23 rifAXIMin [Xifaxan] 550 mg PO TID 14 Days #42 tab 03/19/23 Zolpidem Tartrate [Ambien] 07/07/23 - Allergies Allergies/Adverse Reactions: Allergies Allergy/AdvReac Type Severity Reaction Status Date / Time morphine Allergy Rash Verified 07/07/23 17:59 Review of Systems - Musculoskeletal Musculoskeletal: reports: Limited range of motion, Joint pain Prior Level of Functionality: Indpendent with ADL Exam - Vital Signs Vital Signs: Vital Signs x48h Temp Pulse Resp BP Pulse Ox 07/07/23 21:00 87 15 119/73 96 07/07/23 20:00 107 H 15 122/79 98 07/07/23 19:30 87 16 119/79 99 07/07/23 17:55 88 99 07/07/23 17:48 36.6 C 87 17 123/106 H 98 - Physical Exam General Appearance: positive: Mild distress Eyes Bilateral: positive: Normal inspection, PERRL ENT: positive: ENT inspection nml, Pharynx nml Neck: positive: Nml inspection, Thyroid nml Respiratory: positive: Chest non-tender Cardiovascular: positive: Regular rate & rhythm Extremities: positive: Other (Patient's right hip was evaluated in the emergency room. Her right leg was shortened and externally rotated. There was painful range of motion to her right hip.) Sepsis Event Note (H) - Evaluation Current Stage of Sepsis: Ruled out Conclusion/Plan - Problem List (1) Closed right hip fracture Conclusion/Plan: Admit to Medsurg Ortho consulted NPO past midnight Patient is medical optimized and does not need any further work up needed, patient has no absolute contraindications and is moderate risk for moderate risk surgery Pt/Ot post surgery as per Ortho recs DVT prophyalaxis post op as per Ortho preference Qualifiers: Encounter type: initial encounter Qualified Code(s): S72.001A - Fracture of unspecified part of neck of right femur, initial encounter for closed fracture (2) Hypertension Conclusion/Plan: Continue home medication Monitor BP Pain control Qualifiers: Hypertension type: essential hypertension Qualified Code(s): I10 - Essential (primary) hypertension - Lab Results Fish Bones: 07/07/23 17:50 07/07/23 17:50 - EKG Results EKG Interpreted Independently: Yes
[2023-07-07] MEDS: rifAXIMin 550 MG TABLET PO SCH (23:51)
[2023-07-08] MEDS: SODIUM CHLORIDE FLUSH 0.9% 10 ML SYRINGE IVP SCH ×4 (00:41→23:48)
[2023-07-08] MEDS: HYDROcod/ACETAM 5/325 MG TABLET PO PRN ×2 (04:05→16:40)
--- NOTE | 2023-07-08 07:25 | ANESTHESIA ---
Pre-Anesthesia VS, & Labs - Diagnosis right femoral neck fracture - Procedure right hemiarthroplasty Vital Signs: Temp Pulse Resp BP Pulse Ox O2 Flow Rate 36.6 C 83 16 107/66 93 07/08/23 00:07 07/08/23 00:07 07/08/23 00:07 07/08/23 00:07 07/08/23 00:07 Height: 4 ft 11 in Weight (kg): 51 kg Body Mass Index: 22.6 BMI Classification: Normal - NPO >8 hours - Is Patient ?: No - Lab Results Current Lab Results: Laboratory Tests 07/07/23 19:50: Blood Type A POSITIVE, Antibody Screen NEGATIVE, Crossmatch IS Only See Detail 07/07/23 17:50: Sodium 138, Potassium 4.1, Chloride 102, Carbon Dioxide 23, Anion Gap 13.0, BUN 19, Creatinine 1.3, Estimated GFR (MDRD) 40 L, Glucose 205 H , Calcium 9.9, Total Bilirubin 0.7, AST 20, ALT 14, Alkaline Phosphatase 84, Total Protein 6.8, Albumin 4.7, Globulin 2.1, Albumin/Globulin Ratio 2.2, Lipase 27 07/07/23 17:50: WBC 20.5 H, RBC 4.01 L, Hgb 12.4, Hct 38.7, MCV 96.5, MCH 30.9, MCHC 32.0, RDW 12.4, Plt Count 307, MPV 10.6, Neut # (Auto) Not Reportable, Lymph # (Auto) Not Reportable, Gage # (Auto) Not Reportable, Eos # (Auto) Not Reportable, Baso # (Auto) Not Reportable, Absolute Nucleated RBC Not Reportable, Total Counted 100, Band Neuts % (Manual) 3, Abnorm Lymph % (Manual) 0, Metamyel ocytes % 1 H, Nucleated RBC % Not Reportable, Neutrophils # (Manual) 19.1 H, Lymphocytes # (Manual) 0.8 L, Monocytes # (Manual) 0.4, Eosinophils # (Manual) 0.0, Basophils # (Manual) 0.0, Differential Comment MANUAL DIFFERENTIAL, Platelet Estimate NORMAL (130-450,000), Platelet Morphology NORMAL APPEARANCE, RBC Morph Micro Appear NORMAL APPEARANCE Lab results reviewed: Yes Fish Bones: 07/07/23 17:50 07/07/23 17:50 Home Medications and Allergies Home Medications: Ambulatory Orders Zolpidem Tartrate [Ambien] 07/07/23 Active Medications Acetaminophen (Acetaminophen 325 Mg Tablet) 650 mg PO Q4HR PRN PRN Reason: Pain 1 to 4, or Fever Hydrocodone Bitart/Acetaminophen (Hydrocod/Acetam 5/325 Mg Tablet) 1 tab PO Q4HR PRN PRN Reason: Pain 5 to 7 Last Admin: 07/08/23 04:05 Dose: 1 tab Amlodipine Besylate (Amlodipine 5 Mg Tablet) 10 mg PO QPM [facility] Atorvastatin Calcium (Atorvastatin 10 Mg Tablet) 10 mg PO QPM [facility] Cefazolin Sodium 2 gm/ Sodium (Chloride) 100 mls @ 200 mls/hr IV ONCE [facility] Stop: 07/09/23 07:59 Sodium Chloride (Normal Saline 0.9%) 1,000 mls @ 100 mls/hr IV .Q10H [facility] Last Admin: 07/08/23 00:08 Dose: 100 mls/hr Ondansetron HCl (Ondansetron 4 Mg/2 Ml Vial) 4 mg IVP Q6HR PRN PRN Reason: Nausea / Vomiting Oxycodone HCl (Oxycodone 5 Mg Tablet) 5 mg PO Q4HR PRN PRN Reason: Pain 5 to 7 Last Admin: 07/07/23 23:51 Dose: 5 mg Pantoprazole Sodium (Pantoprazole 40 Mg Tablet) 40 mg PO DAILY [facility] Rifaximin (Rifaximin 550 Mg Tablet) 550 mg PO TID [facility] Last Admin: 07/07/23 23:51 Dose: 550 mg Sodium Chloride (Sodium Chloride Flush 0.9% 10 Ml Syringe) 10 ml IVP PRN PRN PRN Reason: NEEDED PER PROVIDER ORDERS Sodium Chloride (Sodium Chloride Flush 0.9% 10 Ml Syringe) 10 ml IVP 0100,0900,1700 [facility] Last Admin: 07/08/23 00:41 Dose: 10 ml Amlodipine Besylate 1 tab PO QPM 07/12/17 Brimonidine 0.2% Ophth Drops [Alphagan P 0.2% Ophth Drops] 1 drops EACHEYE BID 07/12/17 Calcium Citrate 3 tab PO DAILY 07/12/17 Cholecalciferol (Vitamin D3) [Vitamin D3] 1 tab PO DAILY 07/12/17 Latanoprost 0.005% Ophth Drops [Xalatan Ophth Drops] 1 drops EACHEYE QPM 07/12/17 Losartan [Cozaar] 25 mg PO DAILY 07/12/17 Simvastatin 10 mg PO QPM 07/12/17 Zolpidem Tartrate [Ambien] 07/07/23 Allergies/Adverse Reactions: Allergies Allergy/AdvReac Type Severity Reaction Status Date / Time morphine Allergy Rash Verified 07/08/23 08:56 Anes History & Medical History - Anesthetic History Anesthesia Complications: reports: No previous complications - Medical History Cardiovascular: reports: Hypertension, High cholesterol Pulmonary: reports: None Gastrointestinal: reports: None Urinary: reports: None Neuro: reports: None Musculoskeletal: reports: None Endocrine/Autoimmune: reports: None Blood Disorders: reports: None Skin: reports: None Smoking Status: Never smoker Psychosocial: reports: No issues indicated History of Cancer?: No - Surgical History General: reports: Appendectomy Gynecologic: reports: Hysterectomy Exam General: Alert, Oriented x3, Cooperative, No acute distress Dental: WNL, Other (broken crown) Mouth Openin Fingerbreadth Neck Mobility: Normal Mallampati classification: III Thyromental Distance: 4-6 cm Mental/Cognitive Status: Alert/Oriented X3, Normal for patient Plan Anesthesia Type: Spinal, Fascia Iliaca Block Consent for Procedure(s) Verified and Reviewed: Yes Code Status: Attempt Resuscitation ASA classification: 2-Mild systemic disease Is this case an emergency?: No
[2023-07-08] MEDS ORDERED: ONDANSETRON 4 MG/2 ML VIAL IVP PRN (07:26)
[2023-07-08] MEDS ORDERED: ATROPINE ABBOJECT 1 MG/10 ML SYRINGE IVP PRN (07:26)
[2023-07-08] MEDS ORDERED: HYDROmorphone 0.5 MG/0.5 ML SYRINGE IVP PRN (07:26)
[2023-07-08] MEDS ORDERED: fentaNYL 100 MCG/2 ML VIAL IVP PRN (07:26)
[2023-07-08] MEDS ORDERED: NALOXONE 0.4 MG/ML VIAL IVP PRN (07:26)
[2023-07-08] MEDS: rifAXIMin 550 MG TABLET PO SCH ×3 (07:34→20:51)
[2023-07-08] MEDS ORDERED: LACTATED RINGERS 1,000 ML IV SCH (08:00)
[2023-07-08] MEDS ORDERED: ceFAZolin (2G) 2 GM in SODIUM CHLORIDE 0.9% 100ML 100 ML IV SCH (08:00)
--- NOTE | 2023-07-08 08:54 | PROVIDER PROGRESS NOTE ---
Assessment/Plan - Problem List (1) Closed right hip fracture Qualifiers: Assessment/Plan: She underwent successful hip surgery this morning Plan: Pain control PT and OT post surgery as per Ortho recs DVT prophyalaxis post op as per Ortho preference I encouraged her to start eating so that she can heal more quickly. I updated the and the room at bedside (2) Hypertension Conclusion/Plan: Plan: Continue home medications once med list reconciled by pharmacy - Current Meds Current Meds: Current Medications Generic Name Dose Route Start Last Admin Trade Name Freq PRN Reason Stop Dose Admin Hydrocodone Bitart/Acetaminophen 1 tab 07/07/23 21:41 07/08/23 04:05 Hydrocod/Acetam 5/325 Mg Tablet PO 1 tab Q4HR PRN Administration Pain 5 to 7 Sodium Chloride 1,000 mls @ 100 mls/hr 07/07/23 22:00 07/08/23 00:08 Normal Saline 0.9% IV 100 mls/hr .Q10H LUPIS Administration Oxycodone HCl 5 mg 07/07/23 21:41 07/07/23 23:51 Oxycodone 5 Mg Tablet PO 5 mg Q4HR PRN Administration Pain 5 to 7 Rifaximin 550 mg 07/07/23 22:00 07/08/23 07:34 Rifaximin 550 Mg Tablet PO 550 mg TID LUPIS Administration Sodium Chloride 10 ml 07/08/23 01:00 07/08/23 00:41 Sodium Chloride Flush 0.9% 10 Ml Syringe IVP 10 ml 0100,0900,1700 LUPIS Administration - Lab Result Fish Bone Diagrams: 07/07/23 17:50 07/07/23 17:50 Subjective - Subjective Patient Reports: Other (HAs no appetite after coming out of Ortho surgery, but not nauseated) Objective Vital Signs: Vital Signs - 24 hr 07/07/23 07/07/23 07/07/23 17:48 17:55 19:30 Temperature 36.6 C Heart Rate 87 88 87 Heart Rate [ Brachial] Respiratory 17 16 Rate Blood Pressure 123/106 H 119/79 Blood Pressure [Right Brachial artery] O2 Saturation 98 99 99 07/07/23 07/07/23 07/07/23 20:00 21:00 23:00 Temperature Heart Rate 107 H 87 90 Heart Rate [ Brachial] Respiratory 15 15 15 Rate Blood Pressure 122/79 119/73 107/71 Blood Pressure [Right Brachial artery] O2 Saturation 98 96 94 07/08/23 00:07 Temperature 36.6 C Heart Rate Heart Rate [ 83 Brachial] Respiratory 16 Rate Blood Pressure Blood Pressure 107/66 [Right Brachial artery] O2 Saturation 93 Oxygen O2 Source Room air I&O (Last 24 Hrs): Intake and Output Totals x24h 07/06/23 07/07/23 07/08/23 23:59 23:59 23:59 Intake Total 1150 Output Total 0 Balance 1150 0 General: Alert, Mild distress (from post-op pain) HEENT: Mucous membr. moist/pink Neck: Supple Neuro: Alert, Non Focal Cardiovascular: Regular rate, No murmurs Respiratory: No respiratory distress, Breath sounds nml Abdomen: Normal bowel sounds, No tenderness Genitourinary: Normal External Extremities: No clubbing, No edema - Results Results: Laboratory Results WBC 20.5 x10^3/uL (4.8-10.8) H 07/07/23 17:50 RBC 4.01 10^6/uL (4.20-5.40) L 07/07/23 17:50 Hgb 12.4 g/dL (12.0-16.0) 07/07/23 17:50 Hct 38.7 % (37.0-47.0) 07/07/23 17:50 MCV 96.5 fL (81.0-99.0) 07/07/23 17:50 MCH 30.9 pg (27.0-31.0) 07/07/23 17:50 MCHC 32.0 g/dL (32.0-36.0) 07/07/23 17:50 RDW 12.4 % (12.0-15.0) 07/07/23 17:50 Plt Count 307 10^3/uL (130-450) 07/07/23 17:50 MPV 10.6 fL (7.9-10.8) 07/07/23 17:50 Neut # (Auto) Not Reportable 07/07/23 17:50 Lymph # (Auto) Not Reportable 07/07/23 17:50 Putnam # (Auto) Not Reportable 07/07/23 17:50 Eos # (Auto) Not Reportable 07/07/23 17:50 Baso # (Auto) Not Reportable 07/07/23 17:50 Absolute Nucleated RBC Not Reportable 07/07/23 17:50 Total Counted 100 07/07/23 17:50 Band Neuts % (Manual) 3 % (0-10) 07/07/23 17:50 Abnorm Lymph % (Manual) 0 % 07/07/23 17:50 Metamyelocytes % 1 % (-0) H 07/07/23 17:50 Nucleated RBC % Not Reportable 07/07/23 17:50 Neutrophils # (Manual) 19.1 10^3/uL (1.5-6.6) H 07/07/23 17:50 Lymphocytes # (Manual) 0.8 10^3/uL (1.5-3.5) L 07/07/23 17:50 Monocytes # (Manual) 0.4 10^3/uL (0.0-1.0) 07/07/23 17:50 Eosinophils # (Manual) 0.0 10^3/uL (0-0.7) 07/07/23 17:50 Basophils # (Manual) 0.0 10^3/uL (0-0.1) 07/07/23 17:50 Differential Comment MANUAL DIFFERENTIAL 07/07/23 17:50 Platelet Estimate NORMAL (130-450,000) (NORMAL) 07/07/23 17:50 Platelet Morphology NORMAL APPEARANCE (NORMAL) 07/07/23 17:50 RBC Morph Micro Appear NORMAL APPEARANCE (NORMAL) 07/07/23 17:50 Sodium 138 mmol/L (135-145) 07/07/23 17:50 Potassium 4.1 mmol/L (3.5-4.5) 07/07/23 17:50 Chloride 102 mmol/L (101-111) 07/07/23 17:50 Carbon Dioxide 23 mmol/L (21-32) 07/07/23 17:50 Anion Gap 13.0 (6-13) 07/07/23 17:50 BUN 19 mg/dL (6-20) 07/07/23 17:50 Creatinine 1.3 mg/dL (0.6-1.3) 07/07/23 17:50 Estimated GFR (MDRD) 40 (>89) L 07/07/23 17:50 Glucose 205 mg/dL (74-104) H 07/07/23 17:50 Calcium 9.9 mg/dL (8.5-10.3) 07/07/23 17:50 Total Bilirubin 0.7 mg/dL (0.2-1.0) 07/07/23 17:50 AST 20 IU/L (10-42) 07/07/23 17:50 ALT 14 IU/L (10-60) 07/07/23 17:50 Alkaline Phosphatase 84 IU/L (42-121) 07/07/23 17:50 Total Protein 6.8 g/dL (6.4-8.9) 07/07/23 17:50 Albumin 4.7 g/dL (3.2-5.5) 07/07/23 17:50 Globulin 2.1 g/dL (2.1-4.2) 07/07/23 17:50 Albumin/Globulin Ratio 2.2 (1.0-2.2) 07/07/23 17:50 Lipase 27 U/L (11-82) 07/07/23 17:50 Blood Type A POSITIVE 07/07/23 19:50 Antibody Screen NEGATIVE 07/07/23 19:50 Crossmatch IS Only See Detail 07/07/23 19:50 Sepsis Event Note (H) - Evaluation Current Stage of Sepsis: Ruled out
[2023-07-08] MEDS ORDERED: PANTOPRAZOLE 40 MG TABLET PO SCH (09:00)
[2023-07-08] MEDS ORDERED: VANCOMYCIN 1 GM VIAL MC ONE (09:56)
[2023-07-08] MEDS ORDERED: NS W/20 MEQ KCL 1,000 ML IV SCH (11:00)
[2023-07-08] MEDS ORDERED: LACTATED RINGERS 950 ML IV ONE (11:00)
--- NOTE | 2023-07-08 11:11 | OPERATIVE REPORT ---
Operative Report - General Admit Date: 07/07/23 Procedure Date: 07/08/23 Planned Procedure: Cementless Right Synergy Bipolar hip endoprosthesis Pre-Op Diagnosis: Displaced right femoral neck fracture Procedure Performed: Cementless Synergy biploar hip endoprosthesis Post Op Diagnosis: Same - Procedure Note Primary Surgeon: Jonnie Harding MD Secondary Surgeon: Aditya Sutton MD Anesthesia Technique: Spinal IV Fluids (mL): 1,500 Estimated Blood Loss (mL): 150 Complications: None - Other Other Information/Narrative: Operative note Preoperative diagnosis closed displaced right femoral neck fracture Postoperative diagnosis: Same Procedure performed: Cementless right Synergy bipolar hip in the prostheses Surgeon: Dio Harding MD Pipe Line Gauger: Dario Loera MD Description of procedure: Patient was taken the operating room in the morning of the 08 July where she is placed on a spinal anesthetic without complications. She was then positioned in lateral cubitus decubitus position right side up and held in place with the pegboard and post. When she was stabilized in this position we then prepped and draped right hip in the usual fashion for our procedure. We then made a curvilinear skin incision overlying the greater trochanter. This hemostasis obtained using electrocautery of her subcutaneous bleeders. Should be noted that we did Trans has examined acid just prior to the skin incision as well as 2 g of Ancef antibiotics. Once hemostasis obtained and subcutaneous tissues we then incised fascia Lotta in the direction of our of our skin incision using a Mederos scissors. After blunt dissection we able to define the short external rotators. We transected the short external rotators using electrocautery. This point we did not were able to identify the femoral neck fracture. Oscillating saw was used to osteotomize the proximal femur and the the direction of our prostheses collar. The cutting template was used as our guide. Osteotomy was performed approximately 1 fingerbreadth above the lesser trochanter. We removed the femoral neck fragments with a rongeur. A T-type skin incision was then made over the capsulotomy and the anchor stitches of 2-0 Vicryl used to hold the flaps out of the joint. We then able to identify the femoral head. Hip extractor was inserted into the femoral head. Using a hip skid and manipulation were able to extract the femoral head. Rongeur used to remove the soft tissues from within the acetabulum. We did and inserted a lap sponge in the acetabulum. Femoral head was then used in our template we determined a 44 mm external rotation diameter prosthesis was utilized. We inserted the trial prostheses in the acetabulum after removing her lap sponge. This gave good free rotation of the trial in our acetabulum and good suction. On traction on the prostheses. We then next removed our trial prostheses and placed in their lap sponge in the acetabulum. There was a leg internally rotated beyond neutral we then used a box osteotome to remove the excess bone from the greater trochanter. Charnley awl was then used lysed to ream the proximal femur and determine the direction of the femoral shaft. This was followed by a lateralizing rigid reamer to prepare the proximal femur both of the greater trochanter and down the femoral shaft. Then sequentially sequentially reamed the proximal femur using first the 8 and 9 then 10 and final of the 11 size rigid reamer. This gave us good bony contact. Next we broached the proximal femur for starting with a #9 then #10 and and finally the #11 broach. Satisfied with the contact that we had with our final broach we then inserted the trial components composed of standard offset, 0- neck length and 44 mm external femoral head component. Once in place we then reduced the trial prostheses into the acetabulum after removing our lap sponge. This gave good free rotation the femoral component within the acetabulum. Axial traction showed minimal pistoning noted. Leg was able to the hip was even able to be fully extended. Extended externally rotated creating impingement issues. We then flexed the hip to 90 degrees 0 degrees abduction and internally rotated to 70 degrees without any significant subluxation or instability at the hip. Finally in sleep position and hip internally rotated 70 degrees - no subluxation noted. Satisfied with the stability, trial prosthesis was removed as well as the femoral broach from the canal. We irrigated with pulse lavage to the acetabulum and proximal femur. We then proceeded to insert the final components, inserting first the femoral stem component into a satisfactory position and proper depth. Next after cleaning the post portion of the femoral prostheses we then inserted the selected bipolar components. This was seated in place with hip impactor and mallet. Once the prosthesis was stable we then reduced endoprosthesis into the acetabulum with a hip pusher and with gentle traction and then external rotation of the hip. At this point we checked for stability. We able to easily extend the hip. The leg lengths appear to be equal clinically on the operating room table. We then externally rotated the hip and extension without any impingement or instability. With the hip flexed to 90 degrees and 0 degrees abduction were able to internally rotate to greater than 70 degrees with subluxation. Finally in the sleep position with the internal rotation to 70 degrees is no instability. We were satisfied with this. We then irrigated the wounds out thoroughly with Betadine and saline wash. This was followed up with the Vanco vancomycin antibiotics powder into the wound. We then closed the wound in layers. We first reapposed the capsular flaps with a free needle the flaps were reattached with the 0 Vicryl stay stitches. Finding 1 capsular stitch was also used approximate the 2 flaps together. The fascia luis layer was then closed using baseballs stitches of 0 Vicryl. Finally subcutaneous tissues closed with buried simple stitches of 3-0 Vicryl. Finally skin joey used to approximate the skin edge. We then washed the wound and applied a silver dressing. Patient was then taken off groom off the operating table and taken to recovery room in satisfactory addition with hip abductor pillow in place. Estimated blood loss: 150 mL Replacement: 1500 mL of crystalloid Intraoperative complications: None Plan: Patient will go with a standard postop hip protocol with a posterior surgical approach. I have limited hip flexion to about 60 degrees head of bed elevation and we will keep her hip abductor pillow in place when she is supine in bed. Physical therapy be started beginning tomorrow with dangling at the bedside and advancing as tolerated to weightbearing as tolerated on the right lower extremity and walking with a walker as needed.
[2023-07-08] MEDS: HYDROmorphone 0.5 MG/0.5 ML SYRINGE IVP PRN ×2 (11:38→14:05)
--- NOTE | 2023-07-08 12:08 | XRAY Report ---
PROCEDURE: Pelvis 1 View INDICATIONS: post operative imaging, Right TECHNIQUE: AP pelvis single view of the right hip. COMPARISON: None. FINDINGS: Bones: Patient is status post right total hip prosthesis. Surgical hardware appears in good position without evidence for hardware complication. No acute osseous abnormality is seen. IMPRESSION: Satisfactory appearance of unipolar right hip prosthesis. Reviewed by: Jose Manuel Heredia MD on 07/08/2023 12:06 PM PST Approved by: Jose Manuel Heredia MD on 07/08/2023 12:06 PM PST Station ID: [id number]
[2023-07-08] MEDS: ACETAMINOPHEN 325 MG TABLET PO SCH ×2 (12:25→18:28)
--- NOTE | 2023-07-08 12:37 | ANESTHESIA POST OP EVALUATION ---
Anesthesia Post Eval - Post Anesthesia Eval Vitals: Last Vital Signs Temp 36.2 C L 07/08/23 12:15 Pulse 71 07/08/23 12:15 Resp 16 07/08/23 12:15 BP 123/71 07/08/23 12:15 Pulse Ox 93 07/08/23 12:15 O2 Flow Rate CV Function Including HR & BP: Stable Pain Control: Satisfactory Nausea & Vomiting: Negative Mental Status: Baseline Respiratory Status: Airway Patent Hydration Status: Satisfactory Anesthesia Complications: None
[2023-07-08] MEDS: ceFAZolin (2G) 2 GM in SODIUM CHLORIDE 0.9% MINIBAG 100 ML IV SCH ×2 (12:47→18:29)
[2023-07-08] MEDS: oxyCODONE 5 MG TABLET PO PRN ×2 (13:01→19:12)
[2023-07-08 14:57] LABS: BILIRUBIN,URINE NEGATIVE (NEGATIVE); GLUCOSE, URINE (UA) NEGATIVE (NEGATIVE); KETONES,URINE (UA) 15 mg/dL (NEGATIVE); LEUKOCYTE ESTERASE, URINE NEGATIVE (NEGATIVE); NITRITE,URINE NEGATIVE (NEGATIVE); OCCULT BLOOD,URINE MODERATE (NEGATIVE); PH,URINE 6.5 PH (5.0-7.5); PROTEIN,URINE NEGATIVE (NEGATIVE); UROBILINOGEN,URINE 0.2 (NORMAL) E.U./dL (NORMAL)
[2023-07-08 14:59] LABS: CLARITY,URINE CLEAR (CLEAR)
--- NOTE | 2023-07-08 15:15 | PHARMACY PROGRESS NOTE ---
- Best Possible Medication History Admit Date and Time: 07/07/232140 Processed by: Pharmacy Medication History completed: Yes Patient Interview: Completed Secondary Source(s): Spouse/Significant other (INTERVIEWED PT AND SPOUSE IN ROOM. TAKES CARE OF PT'S MEDS.) As the person ultimately responsible for medication therapy, providers are able to order a medication from an existing home medication list in [facility] via the "Reconcile Routine" prior to Confirmation of that medication by administrative support technician. Such practice is discouraged except when the physician, in their clinical judgment, deems that a medical need exists for a medication without regard to previous use.
[2023-07-08 15:40] LABS: BACTERIA,URINE None Seen /HPF (None Seen); SQUAMOUS EPITHELIAL CELL,UR NONE SEEN (<= Few); WBC,URINE 0-3 /HPF (0-5)
[2023-07-08] MEDS: DOCUSATE SODIUM 100 MG CAPSULE PO PRN (17:30)
[2023-07-08] MEDS: ATORVASTATIN 10 MG TABLET PO SCH (20:38)
[2023-07-08] MEDS: CELECOXIB 100 MG CAPSULE PO SCH (20:38)
[2023-07-08] MEDS: ASPIRIN EC 81 MG TABLET PO SCH (20:38)
[2023-07-08] MEDS: amLODIPine 5 MG TABLET PO SCH (20:38)
[2023-07-08] MEDS: ACETAMINOPHEN 500 MG TABLET PO SCH (23:47)
[2023-07-09] MEDS: ZOLPIDEM 5 MG TABLET PO PRN (00:21)
[2023-07-09] MEDS: rifAXIMin 550 MG TABLET PO SCH (05:46)
[2023-07-09 06:01] LABS: BASOPHILS % (AUTO) 0.3 %; HCT - HEMATOCRIT 31.6 % (37.0-47.0); HGB - HEMOGLOBIN 10.4 g/dL (12.0-16.0); LYMPHOCYTES # (AUTO) 0.3 10^3/uL (1.5-3.5); LYMPHOCYTES % (AUTO) 2.3 %; MEAN CORPUSCULAR HEMOGLOBIN 31.3 pg (27.0-31.0); MEAN CORPUSCULAR HGB CONC 32.9 g/dL (32.0-36.0); MEAN CORPUSCULAR VOLUME 95.2 fL (81.0-99.0); MEAN PLATELET VOLUME 11.3 fL (7.9-10.8); MONOCYTES # (AUTO) 0.8 10^3/uL (0.0-1.0); MONOCYTES % (AUTO) 6.4 %; NEUTROPHILS # (AUTO) 10.7 10^3/uL (1.5-6.6); NEUTROPHILS % (AUTO) 90.4 %; PLT - PLATELET COUNT 217 10^3/uL (130-450); RED BLOOD COUNT 3.32 10^6/uL (4.20-5.40); RED CELL DISTRIBUTION WIDTH 12.3 % (12.0-15.0); WHITE BLOOD COUNT 11.9 x10^3/uL (4.8-10.8)
[2023-07-09 06:17] LABS: CREATININE 0.8 mg/dL (0.6-1.3); MAGNESIUM 1.9 mg/dL (1.7-2.3); POTASSIUM 4.3 mmol/L (3.5-4.5)
[2023-07-09] MEDS: ACETAMINOPHEN 500 MG TABLET PO SCH (06:32)
[2023-07-09] MEDS: PANTOPRAZOLE 40 MG VIAL IV SCH (08:26)
[2023-07-09] MEDS: CELECOXIB 100 MG CAPSULE PO SCH ×2 (08:27→21:04)
[2023-07-09] MEDS: HYDROmorphone 0.5 MG/0.5 ML SYRINGE IVP PRN (08:27)
[2023-07-09] MEDS: ASPIRIN EC 81 MG TABLET PO SCH ×2 (08:27→21:04)
[2023-07-09] MEDS: SODIUM CHLORIDE FLUSH 0.9% 10 ML SYRINGE IVP SCH ×2 (08:27→17:23)
[2023-07-09] MEDS ORDERED: ACETAMINOPHEN 500 MG TABLET PO SCH (12:00)
--- NOTE | 2023-07-09 12:16 | PROVIDER PROGRESS NOTE ---
Assessment/Plan - Problem List (1) Closed right hip fracture Qualifiers: Assessment/Plan: She underwent successful R hip surgery yesterday. Today is POD #1 Plan: Cont meds for pain control PT and OT to start today as per Ortho orders DVT prophyalaxis post op as per Ortho preference I encouraged her to start eating so that she can heal more quickly. I updated the in the room at bedside (2) Hypertension Conclusion/Plan: Plan: Continue home medications once med list reconciled by pharmacy (3) Odynophagia Conclusion/Plan: Yesterday afternoon, after the OR, she told her RN that she takes her meds crushed. I asked the patient details about this. She said depending on the size of the pill, she needs to crush them. She said she has something like a cyst on the L side of her upper esophagus or in her neck, which makes swallowing difficult. But she has no [place]. I then adjusted her diet to a soft diet so that she can swallow food. Today she said the kitchen brought up hard food (crispy vegetables) Plan: Cont soft diet, I updated Cut Out Operator Olivia today re some of her requests Cont Protonix IV form for now Container Coordinator to see her (4) Renal cyst Conclusion/Plan: Today, the pt and told me she used to be on Rifaximin for "abdominal pain, which was stopped because the cause was found to be a renal cyst". The cyst was drained just 2 mos ago, 780cc was removed. They gave no other details. She is followed by a Urologist and has the next appt and an US coming up in a month. She has no [place]. - Current Meds Current Meds: Current Medications Generic Name Dose Route Start Last Admin Trade Name Michel PRN Reason Stop Dose Admin Amlodipine Besylate 10 mg 07/08/23 21:00 07/08/23 20:38 Amlodipine 5 Mg Tablet PO 10 mg QPM LUPIS Administration Aspirin 81 mg 07/08/23 21:00 07/09/23 08:27 Aspirin Ec 81 Mg Tablet PO 81 mg BID LUPIS Administration Atorvastatin Calcium 10 mg 07/08/23 21:00 07/08/23 20:38 Atorvastatin 10 Mg Tablet PO 10 mg QPM LUPIS Administration Celecoxib 200 mg 07/08/23 21:00 07/09/23 08:27 Celecoxib 100 Mg Capsule PO 200 mg BID LUPIS Administration Docusate Sodium 100 mg 07/08/23 10:46 07/08/23 17:30 Docusate Sodium 100 Mg Capsule PO 100 mg BID PRN Administration Constipation Hydromorphone HCl 0.5 mg 07/08/23 10:59 07/09/23 08:27 Hydromorphone 0.5 Mg/0.5 Ml Syringe IVP 0.5 mg Q2H PRN Administration Severe Pain (Level 7-10) Oxycodone HCl 5 mg 07/08/23 10:46 07/08/23 19:12 Oxycodone 5 Mg Tablet PO 5 mg Q6HR PRN Administration Severe Breakthrough pain(8-10) Pantoprazole Sodium 40 mg 07/09/23 09:00 07/09/23 08:26 Pantoprazole 40 Mg Vial IV 40 mg DAILY LUPIS Administration Sodium Chloride 10 ml 07/08/23 01:00 07/09/23 08:27 Sodium Chloride Flush 0.9% 10 Ml Syringe IVP 10 ml 0100,0900,1700 LUPIS Administration Zolpidem Tartrate 5 mg 07/09/23 00:17 07/09/23 00:21 Zolpidem 5 Mg Tablet PO 5 mg HS PRN Administration Insomnia - Lab Result Fish Bone Diagrams: 07/09/23 05:17 07/09/23 05:17 - Additional Planning My Orders: My Active Orders 07/08/23 15:37 Nutrition Consult [CONS] Routine 07/08/23 Dinner DIET [Soft Mechanical Diet] [DIET] 07/09/23 09:00 Pantoprazole [Protonix] 40 mg IV DAILY 07/09/23 12:00 Cholecalciferol [Vitamin D3] 50 mcg PO DAILY 07/09/23 21:00 Calcium Carbonate [Tums] 500 mg PO BID 07/10/23 05:00 BMP - BASIC METABOLIC PANEL [CHEM] DAILYLAB CBC - COMP BLD CT W/AUTO DIFF [HEME] DAILYLAB HEMOGLOBIN A1c% [CHEM] DAILYLAB Subjective - Subjective Patient Reports: Feeling Better (Less pain in R hip. Did not like food, ate 3 bites) Objective Vital Signs: Vital Signs - 24 hr 07/08/23 07/08/23 07/08/23 12:15 13:06 15:57 Temperature 36.2 C L 36.3 C L 36.2 C L Heart Rate [ 71 99 79 Brachial] Respiratory 16 16 16 Rate Blood Pressure 123/71 126/76 122/78 [Right Brachial artery] O2 Saturation 93 96 95 07/08/23 07/08/23 07/09/23 20:26 23:44 05:00 Temperature 36.4 C L 36.7 C 36.6 C Heart Rate [ 79 78 82 Brachial] Respiratory 20 16 16 Rate Blood Pressure 122/69 122/68 118/68 [Right Brachial artery] O2 Saturation 95 95 95 07/09/23 07/09/23 08:00 09:00 Temperature 36.6 C 36.6 C Heart Rate [ 87 83 Brachial] Respiratory 18 18 Rate Blood Pressure 120/69 120/69 [Right Brachial artery] O2 Saturation 96 96 Oxygen O2 Source Room air I&O (Last 24 Hrs): Intake and Output Totals x24h 07/07/23 07/08/23 07/09/23 23:59 23:59 23:59 Intake Total 1150 1811.25 120 Output Total 1450 950 Balance 1150 361.25 -830 General: Alert, Oriented x3 HEENT: Other ([place]) Neck: Supple, No JVD Neuro: Alert, Non Focal Cardiovascular: Regular rate Respiratory: No respiratory distress, Breath sounds nml Abdomen: Normal bowel sounds, Soft Extremities: No clubbing, No edema, No tenderness/swelling - Results Results: Laboratory Results WBC 11.9 x10^3/uL (4.8-10.8) H 07/09/23 05:17 RBC 3.32 10^6/uL (4.20-5.40) L 07/09/23 05:17 Hgb 10.4 g/dL (12.0-16.0) L 07/09/23 05:17 Hct 31.6 % (37.0-47.0) L 07/09/23 05:17 MCV 95.2 fL (81.0-99.0) 07/09/23 05:17 MCH 31.3 pg (27.0-31.0) H 07/09/23 05:17 MCHC 32.9 g/dL (32.0-36.0) 07/09/23 05:17 RDW 12.3 % (12.0-15.0) 07/09/23 05:17 Plt Count 217 10^3/uL (130-450) 07/09/23 05:17 MPV 11.3 fL (7.9-10.8) H 07/09/23 05:17 Neut # (Auto) 10.7 10^3/uL (1.5-6.6) H 07/09/23 05:17 Lymph # (Auto) 0.3 10^3/uL (1.5-3.5) L 07/09/23 05:17 Brule # (Auto) 0.8 10^3/uL (0.0-1.0) 07/09/23 05:17 Eos # (Auto) 0.0 10^3/uL (0.0-0.7) 07/09/23 05:17 Baso # (Auto) 0.0 10^3/uL (0.0-0.1) 07/09/23 05:17 Absolute Nucleated RBC 0.00 x10^3/uL 07/09/23 05:17 Total Counted 100 07/07/23 17:50 Band Neuts % (Manual) 3 % (0-10) 07/07/23 17:50 Abnorm Lymph % (Manual) 0 % 07/07/23 17:50 Metamyelocytes % 1 % (-0) H 07/07/23 17:50 Nucleated RBC % 0.0 /100WBC 07/09/23 05:17 Neutrophils # (Manual) 19.1 10^3/uL (1.5-6.6) H 07/07/23 17:50 Lymphocytes # (Manual) 0.8 10^3/uL (1.5-3.5) L 07/07/23 17:50 Monocytes # (Manual) 0.4 10^3/uL (0.0-1.0) 07/07/23 17:50 Eosinophils # (Manual) 0.0 10^3/uL (0-0.7) 07/07/23 17:50 Basophils # (Manual) 0.0 10^3/uL (0-0.1) 07/07/23 17:50 Differential Comment MANUAL DIFFERENTIAL 07/07/23 17:50 Platelet Estimate NORMAL (130-450,000) (NORMAL) 07/07/23 17:50 Platelet Morphology NORMAL APPEARANCE (NORMAL) 07/07/23 17:50 RBC Morph Micro Appear NORMAL APPEARANCE (NORMAL) 07/07/23 17:50 Sodium 135 mmol/L (135-145) 07/09/23 05:17 Potassium 4.3 mmol/L (3.5-4.5) 07/09/23 05:17 Chloride 103 mmol/L (101-111) 07/09/23 05:17 Carbon Dioxide 27 mmol/L (21-32) 07/09/23 05:17 Anion Gap 5.0 (6-13) L 07/09/23 05:17 BUN 14 mg/dL (6-20) 07/09/23 05:17 Creatinine 0.8 mg/dL (0.6-1.3) 07/09/23 05:17 Estimated GFR (MDRD) 70 (>89) L 07/09/23 05:17 Glucose 121 mg/dL (74-104) H 07/09/23 05:17 Calcium 9.0 mg/dL (8.5-10.3) 07/09/23 05:17 Magnesium 1.9 mg/dL (1.7-2.3) 07/09/23 05:17 Total Bilirubin 0.7 mg/dL (0.2-1.0) 07/07/23 17:50 AST 20 IU/L (10-42) 07/07/23 17:50 ALT 14 IU/L (10-60) 07/07/23 17:50 Alkaline Phosphatase 84 IU/L (42-121) 07/07/23 17:50 Total Protein 6.8 g/dL (6.4-8.9) 07/07/23 17:50 Albumin 4.7 g/dL (3.2-5.5) 07/07/23 17:50 Globulin 2.1 g/dL (2.1-4.2) 07/07/23 17:50 Albumin/Globulin Ratio 2.2 (1.0-2.2) 07/07/23 17:50 Lipase 27 U/L (11-82) 07/07/23 17:50 Urine Color STRAW 07/08/23 13:50 Urine Clarity CLEAR (CLEAR) 07/08/23 13:50 Urine pH 6.5 PH (5.0-7.5) 07/08/23 13:50 Ur Specific [place] <=1.005 (1.002-1.030) 07/08/23 13:50 Urine Protein NEGATIVE mg/dL (NEGATIVE) 07/08/23 13:50 Urine Glucose (UA) NEGATIVE mg/dL (NEGATIVE) 07/08/23 13:50 Urine Ketones 15 mg/dL (NEGATIVE) H 07/08/23 13:50 Urine Occult Blood MODERATE (NEGATIVE) H 07/08/23 13:50 Urine Nitrite NEGATIVE (NEGATIVE) 07/08/23 13:50 Urine Bilirubin NEGATIVE (NEGATIVE) 07/08/23 13:50 Urine Urobilinogen 0.2 (NORMAL) E.U./dL (NORMAL) 07/08/23 13:50 Ur Leukocyte Esterase NEGATIVE (NEGATIVE) 07/08/23 13:50 Urine RBC 6-10 /HPF (0-5) H 07/08/23 13:50 Urine WBC 0-3 /HPF (0-5) 07/08/23 13:50 Ur Squamous Epith Cells NONE SEEN (<= Few) 07/08/23 13:50 Urine Bacteria None Seen /HPF (None Seen) 07/08/23 13:50 Ur Microscopic Review INDICATED 07/08/23 13:50 Urine Culture Comments NOT INDICATED 07/08/23 13:50 Blood Type A POSITIVE 07/07/23 19:50 Antibody Screen NEGATIVE 07/07/23 19:50 Crossmatch IS Only See Detail 07/07/23 19:50 Sepsis Event Note (H) - Evaluation Current Stage of Sepsis: Ruled out
[2023-07-09] MEDS: CHOLECALCIFEROL 25 MCG TABLET PO SCH (12:58)
[2023-07-09] MEDS: ACETAMINOPHEN 325 MG TABLET PO SCH ×2 (13:01→17:22)
--- NOTE | 2023-07-09 13:35 | PROVIDER PROGRESS NOTE ---
Subjective - Prog Note Date Prog Note Date: 07/09/23 Prog Note Time: 13:32 - Subjective Pt reports feeling: Improved (Patient is doing well today. Her postoperative nerve block is working well and she is having virtually no pain about her hip. Exam: Her dressing is intact around her hip. She moves her toes well. Sensation is intact distally. Good capillary filling noted. Hematocrit: 31.6 Assessment:) Subjective: Plan: Patient will continue with physical therapy. She will be upstanding weightbearing as tolerated in the right lower extremity. Begin ambulating with a walker as tolerated. Likely discharge to senior living facility later this week.Postoperative note Patient is doing well today. Having virtually no pain about her incision site or proximally around her hip. Moves her hip satisfactory with minimal pain. Moves her toes satisfactory. Neurovascular intact distally. Hematocrit: 3 1.6 Assessment: Satisfactory postoperative course Plan: UP as tolerated in PT. WBAT on right and walker ambulate as tolerated. Objective - Vital Signs/Intake & Output Vital Signs: Vital Signs x48h Temp Pulse Resp BP Pulse Ox 07/09/23 13:00 36.7 C 101 H 18 123/73 97 07/09/23 09:00 36.6 C 83 18 120/69 96 07/09/23 08:00 36.6 C 87 18 120/69 96 Intake & Output: Intake & Output 07/06/23 07/07/23 07/08/23 07/09/23 23:59 23:59 23:59 23:59 Intake Total 1150 1811.25 600 Output Total 1450 2350 Balance 1150 361.25 -1750 - Lab Results Fish Bones: 07/09/23 05:17 07/09/23 05:17 Other Labs: Lab Results x24hrs 07/09/23 07/09/23 07/08/23 Range/Units 05:17 05:17 13:50 WBC 11.9 H (4.8-10.8) x10^3/uL RBC 3.32 L (4.20-5.40) 10^6/uL Hgb 10.4 L (12.0-16.0) g/dL Hct 31.6 L (37.0-47.0) % MCV 95.2 (81.0-99.0) fL MCH 31.3 H (27.0-31.0) pg MCHC 32.9 (32.0-36.0) g/dL RDW 12.3 (12.0-15.0) % Plt Count 217 (130-450) 10^3/uL MPV 11.3 H (7.9-10.8) fL Neut # (Auto) 10.7 H (1.5-6.6) 10^3/uL Lymph # (Auto) 0.3 L (1.5-3.5) 10^3/uL Terry # (Auto) 0.8 (0.0-1.0) 10^3/uL Eos # (Auto) 0.0 (0.0-0.7) 10^3/uL Baso # (Auto) 0.0 (0.0-0.1) 10^3/uL Absolute Nucleated RBC 0.00 x10^3/uL Nucleated RBC % 0.0 /100WBC Sodium 135 (135-145) mmol/L Potassium 4.3 (3.5-4.5) mmol/L Chloride 103 (101-111) mmol/L Carbon Dioxide 27 (21-32) mmol/L Anion Gap 5.0 L (6-13) BUN 14 (6-20) mg/dL Creatinine 0.8 (0.6-1.3) mg/dL Estimated GFR (MDRD) 70 L (>89) Glucose 121 H (74-104) mg/dL Calcium 9.0 (8.5-10.3) mg/dL Magnesium 1.9 (1.7-2.3) mg/dL Urine Color STRAW Urine Clarity CLEAR (CLEAR) Urine pH 6.5 (5.0-7.5) PH Ur Specific [place] <=1.005 (1.002-1.030) Urine Protein NEGATIVE (NEGATIVE) mg/dL Urine Glucose (UA) NEGATIVE (NEGATIVE) mg/dL Urine Ketones 15 H (NEGATIVE) mg/dL Urine Occult Blood MODERATE H (NEGATIVE) Urine Nitrite NEGATIVE (NEGATIVE) Urine Bilirubin NEGATIVE (NEGATIVE) Urine Urobilinogen 0.2 (NORMAL) (NORMAL) E.U./dL Ur Leukocyte Esterase NEGATIVE (NEGATIVE) Urine RBC 6-10 H (0-5) /HPF Urine WBC 0-3 (0-5) /HPF Ur Squamous Epith Cells NONE SEEN (<= Few) Urine Bacteria None Seen (None Seen) /HPF Ur Microscopic Review INDICATED Urine Culture Comments NOT INDICATED Crossmatch IS Only 07/07/23 Range/Units 19:50 WBC (4.8-10.8) x10^3/uL RBC (4.20-5.40) 10^6/uL Hgb (12.0-16.0) g/dL Hct (37.0-47.0) % MCV (81.0-99.0) fL MCH (27.0-31.0) pg MCHC (32.0-36.0) g/dL RDW (12.0-15.0) % Plt Count (130-450) 10^3/uL MPV (7.9-10.8) fL Neut # (Auto) (1.5-6.6) 10^3/uL Lymph # (Auto) (1.5-3.5) 10^3/uL Terry # (Auto) (0.0-1.0) 10^3/uL Eos # (Auto) (0.0-0.7) 10^3/uL Baso # (Auto) (0.0-0.1) 10^3/uL Absolute Nucleated RBC x10^3/uL Nucleated RBC % /100WBC Sodium (135-145) mmol/L Potassium (3.5-4.5) mmol/L Chloride (101-111) mmol/L Carbon Dioxide (21-32) mmol/L Anion Gap (6-13) BUN (6-20) mg/dL Creatinine (0.6-1.3) mg/dL Estimated GFR (MDRD) (>89) Glucose (74-104) mg/dL Calcium (8.5-10.3) mg/dL Magnesium (1.7-2.3) mg/dL Urine Color Urine Clarity (CLEAR) Urine pH (5.0-7.5) PH Ur Specific [place] (1.002-1.030) Urine Protein (NEGATIVE) mg/dL Urine Glucose (UA) (NEGATIVE) mg/dL Urine Ketones (NEGATIVE) mg/dL Urine Occult Blood (NEGATIVE) Urine Nitrite (NEGATIVE) Urine Bilirubin (NEGATIVE) Urine Urobilinogen (NORMAL) E.U./dL Ur Leukocyte Esterase (NEGATIVE) Urine RBC (0-5) /HPF Urine WBC (0-5) /HPF Ur Squamous Epith Cells (<= Few) Urine Bacteria (None Seen) /HPF Ur Microscopic Review Urine Culture Comments Crossmatch IS Only See Detail Sepsis Event Note (H) - Evaluation Current Stage of Sepsis: Ruled out
[2023-07-09] MEDS ORDERED: polyethylene glycoL 3350 17 GM PACKET PO SCH (17:00)
[2023-07-09] MEDS: DOCUSATE SODIUM 100 MG CAPSULE PO PRN (17:22)
[2023-07-09] MEDS: polyethylene glycoL 3350 17 GM PACKET PO SCH (17:23)
[2023-07-09] MEDS: DOCUSATE SODIUM 250 MG CAPSULE PO SCH (17:24)
[2023-07-09] MEDS ORDERED: HYDROmorphone 0.5 MG/0.5 ML SYRINGE IVP PRN (19:49)
[2023-07-09] MEDS: ATORVASTATIN 10 MG TABLET PO SCH (21:04)
[2023-07-09] MEDS: amLODIPine 5 MG TABLET PO SCH (21:04)
[2023-07-09] MEDS: CALCIUM CARBONATE CHEW 500 MG TABLET PO SCH (21:04)
[2023-07-10] MEDS: ACETAMINOPHEN 325 MG TABLET PO SCH ×5 (00:34→23:34)
[2023-07-10] MEDS: SODIUM CHLORIDE FLUSH 0.9% 10 ML SYRINGE IVP SCH ×4 (00:36→23:38)
[2023-07-10] MEDS: ZOLPIDEM 5 MG TABLET PO PRN (00:37)
[2023-07-10 05:46] LABS: BASOPHILS % (AUTO) 0.4 %; HCT - HEMATOCRIT 32.7 % (37.0-47.0); HGB - HEMOGLOBIN 10.7 g/dL (12.0-16.0); LYMPHOCYTES # (AUTO) 0.6 10^3/uL (1.5-3.5); LYMPHOCYTES % (AUTO) 7.9 %; MEAN CORPUSCULAR HEMOGLOBIN 31.3 pg (27.0-31.0); MEAN CORPUSCULAR HGB CONC 32.7 g/dL (32.0-36.0); MEAN CORPUSCULAR VOLUME 95.6 fL (81.0-99.0); MEAN PLATELET VOLUME 11.2 fL (7.9-10.8); MONOCYTES # (AUTO) 0.7 10^3/uL (0.0-1.0); MONOCYTES % (AUTO) 8.1 %; NEUTROPHILS # (AUTO) 6.8 10^3/uL (1.5-6.6); NEUTROPHILS % (AUTO) 83.1 %; PLT - PLATELET COUNT 204 10^3/uL (130-450); RED BLOOD COUNT 3.42 10^6/uL (4.20-5.40); RED CELL DISTRIBUTION WIDTH 12.4 % (12.0-15.0); WHITE BLOOD COUNT 8.1 x10^3/uL (4.8-10.8)
[2023-07-10 06:06] LABS: CALCIUM 9.2 mg/dL (8.5-10.3); CREATININE 0.8 mg/dL (0.6-1.3); POTASSIUM 3.8 mmol/L (3.5-4.5)
[2023-07-10] MEDS ORDERED: amLODIPine 5 MG TABLET PO SCH (07:43)
[2023-07-10] MEDS ORDERED: MAGNESIUM HYDROXIDE 2,400 MG/30 ML UDC PO ONE (08:16)
[2023-07-10] MEDS: CELECOXIB 100 MG CAPSULE PO SCH ×2 (08:40→20:23)
[2023-07-10] MEDS: CALCIUM CARBONATE CHEW 500 MG TABLET PO SCH ×2 (08:40→20:23)
[2023-07-10] MEDS: ASPIRIN EC 81 MG TABLET PO SCH ×2 (08:41→20:23)
[2023-07-10] MEDS: SENNA 8.6 MG TABLET PO SCH (08:41)
[2023-07-10] MEDS: PANTOPRAZOLE 40 MG VIAL IV SCH (08:41)
[2023-07-10] MEDS: DOCUSATE SODIUM 250 MG CAPSULE PO SCH (08:42)
[2023-07-10] MEDS: CHOLECALCIFEROL 25 MCG TABLET PO SCH (08:42)
[2023-07-10] MEDS: polyethylene glycoL 3350 17 GM PACKET PO SCH (08:43)
--- NOTE | 2023-07-10 08:46 | PROVIDER PROGRESS NOTE ---
Assessment/Plan - Problem List (1) Orthostatic hypotension Assessment/Plan: Given the significant anemia S/P hip surgery 2 days ago, I ordered orthostatic vital signs. HR supine 88, with standing she gets tachycardic, HR 116. She did not complain of lightheadedness Plan: Decrease her Amlodipine dose Continue to hold the Losartan twice daily dose I explained that plan with meds to the patient and at bedside Follow hemoglobin daily, transfuse if she has hemoglobin below 7 She is not yet ready for discharge today (2) Iron deficiency anmeia Conclusion/Plan: Hgb at adm was and today is (all labs were reviewed). Therefore the orthostatic vital signs were ordered and I checked her iron panel. She is very iron anemic. This patient has very poor diet, as per our discussions. I updated this finding to pt and at bedside today. Plan: IV iron dextran x1 Start oral iron daily after that Laborer Operator to see her (3) Closed right hip fracture Conclusion/Plan: She underwent successful R hip surgery yesterday. Today is POD #2 Plan: Cont meds for pain control PT and OT to cont and she needs rehab at a SNF Dr Harding and I spoke today: he wants the joey removed at Ortho clinic in 2 weeks (4) Hx Hypertension Conclusion/Plan: She received Amlodipine 10 mg last night, which is her usual dose and time. I have not ordered her Losartan BID dose since admission, because she has had a normal blood pressure. Plan: Given the orthostasis, I will decrease her Amlodipine dose Continue to hold the Losartan BID dose (5) Odynophagia Conclusion/Plan: She takes her meds crushed depending on the size of the pill. She has something like a cyst on the L side of her upper esophagus or in her neck, which makes swallowing difficult, so she eats soft food and crushes big pills. She has no Clinical Specialist Vascular. I adjusted her diet to a soft diet, so that she can swallow food. Today she ate 100% of breakfast Plan: Cont soft diet Cont Protonix IV form for now Laborer Operator to help with diet needs (6) Renal cyst Conclusion/Plan: Today, the pt and told me she used to be on Rifaximin for "abdominal pain, which was stopped because the cause was found to be a renal cyst". The cyst was drained just 2 mos ago, 780cc was removed. They gave no other details. She is followed by a Urologist and has the next appt and an US coming up in a month. She has no Clinical Specialist Vascular. - Current Meds Current Meds: Current Medications Generic Name Dose Route Start Last Admin Trade Name Dangeloq PRN Reason Stop Dose Admin Acetaminophen 650 mg 07/09/23 13:00 07/10/23 06:15 Acetaminophen 325 Mg Tablet PO 650 mg Q6HR LUPIS Administration Aspirin 81 mg 07/08/23 21:00 07/09/23 21:04 Aspirin Ec 81 Mg Tablet PO 81 mg BID LUPIS Administration Atorvastatin Calcium 10 mg 07/08/23 21:00 07/09/23 21:04 Atorvastatin 10 Mg Tablet PO 10 mg QPM LUPIS Administration Calcium Carbonate/Glycine 500 mg 07/09/23 21:00 07/09/23 21:04 Calcium Carbonate Chew 500 Mg Tablet PO 500 mg BID LUPIS Administration Celecoxib 200 mg 07/08/23 21:00 07/09/23 21:04 Celecoxib 100 Mg Capsule PO 200 mg BID LUPIS Administration Cholecalciferol 50 mcg 07/09/23 12:00 07/09/23 12:58 Cholecalciferol 25 Mcg Tablet PO 50 mcg DAILY LUPIS Administration Docusate Sodium 100 mg 07/08/23 10:46 07/09/23 17:22 Docusate Sodium 100 Mg Capsule PO 100 mg BID PRN Administration Constipation Docusate Sodium 250 - 500 mg 07/09/23 17:00 07/09/23 17:24 Docusate Sodium 250 Mg Capsule PO 250 mg DAILY LUPIS Administration Oxycodone HCl 5 mg 07/08/23 10:46 07/08/23 19:12 Oxycodone 5 Mg Tablet PO 5 mg Q6HR PRN Administration Severe Breakthrough pain(8-10) Pantoprazole Sodium 40 mg 07/09/23 09:00 07/09/23 08:26 Pantoprazole 40 Mg Vial IV 40 mg DAILY LUPIS Administration Polyethylene Glycol 17 gm 07/09/23 18:00 07/09/23 17:23 Polyethylene Glycol 3350 17 Gm Packet PO 17 gm DAILY LUPIS Administration Sodium Chloride 10 ml 07/08/23 01:00 07/10/23 00:36 Sodium Chloride Flush 0.9% 10 Ml Syringe IVP 10 ml 0100,0900,1700 LUPIS Administration Zolpidem Tartrate 5 mg 07/09/23 00:17 07/10/23 00:37 Zolpidem 5 Mg Tablet PO 5 mg HS PRN Administration Insomnia - Lab Result Fish Bone Diagrams: 07/10/23 05:00 07/10/23 05:00 - Additional Planning My Orders: My Active Orders 07/09/23 09:00 Pantoprazole [Protonix] 40 mg IV DAILY 07/09/23 12:00 Cholecalciferol [Vitamin D3] 50 mcg PO DAILY 07/09/23 17:00 Docusate Sodium 250Mg Capsule [Colace 250Mg Capsule] 250 - 500 mg PO DAILY 07/09/23 18:00 polyethylene glycoL 3350 [Miralax] 17 gm PO DAILY 07/09/23 21:00 Calcium Carbonate [Tums] 500 mg PO BID 07/10/23 05:00 HEMOGLOBIN A1c% [CHEM] DAILYLAB 07/10/23 07:43 Orthostatic [Vital Signs - Orthostatic] [RC] QSHIFT amLODIPine [Norvasc] 10 mg PO QPM 07/10/23 09:00 Senna [Senokot] 8.6 - 17.2 mg PO DAILY Subjective - Subjective Patient Reports: Feeling Better Nursing Reports: Other (tolerating walking w/out much hip pain) Objective Vital Signs: Vital Signs - 24 hr 07/09/23 07/09/23 07/09/23 09:00 12:40 13:00 Temperature 36.6 C 36.7 C Heart Rate [ 83 101 H Brachial] Heart Rate [ 101 H Supine] Respiratory 18 18 Rate Blood Pressure 120/69 123/73 [Right Brachial artery] Blood Pressure 135/88 H [Standing] Blood Pressure 129/85 H [Supine] O2 Saturation 96 97 07/09/23 07/09/23 07/09/23 13:46 15:38 20:56 Temperature 36.5 C 36.9 C Heart Rate [ 113 H 81 Brachial] Heart Rate [ 101 H Supine] Respiratory 18 18 Rate Blood Pressure 112/72 113/70 [Right Brachial artery] Blood Pressure 135/88 H [Standing] Blood Pressure 129/85 H [Supine] O2 Saturation 96 96 07/10/23 07/10/23 00:26 04:36 Temperature 36.4 C L 36.4 C L Heart Rate [ 79 84 Brachial] Heart Rate [ Supine] Respiratory 16 16 Rate Blood Pressure 119/81 H 114/74 [Right Brachial artery] Blood Pressure [Standing] Blood Pressure [Supine] O2 Saturation 97 98 Oxygen O2 Source Room air I&O (Last 24 Hrs): Intake and Output Totals x24h 07/08/23 07/09/23 07/10/23 23:59 23:59 23:59 Intake Total 1811.25 1000 Output Total 1450 2350 Balance 361.25 -1350 General: Alert, Oriented x3, No acute distress, Other (Disheveled) HEENT: EOMI, Mucous membr. moist/pink Neck: Supple, No JVD Neuro: Alert, Non Focal Cardiovascular: Regular rate Respiratory: No respiratory distress Abdomen: Soft Extremities: No clubbing, No edema - Results Results: Laboratory Results WBC 8.1 x10^3/uL (4.8-10.8) 07/10/23 05:00 RBC 3.42 10^6/uL (4.20-5.40) L 07/10/23 05:00 Hgb 10.7 g/dL (12.0-16.0) L 07/10/23 05:00 Hct 32.7 % (37.0-47.0) L 07/10/23 05:00 MCV 95.6 fL (81.0-99.0) 07/10/23 05:00 MCH 31.3 pg (27.0-31.0) H 07/10/23 05:00 MCHC 32.7 g/dL (32.0-36.0) 07/10/23 05:00 RDW 12.4 % (12.0-15.0) 07/10/23 05:00 Plt Count 204 10^3/uL (130-450) 07/10/23 05:00 MPV 11.2 fL (7.9-10.8) H 07/10/23 05:00 Neut # (Auto) 6.8 10^3/uL (1.5-6.6) H 07/10/23 05:00 Lymph # (Auto) 0.6 10^3/uL (1.5-3.5) L 07/10/23 05:00 [place] # (Auto) 0.7 10^3/uL (0.0-1.0) 07/10/23 05:00 Eos # (Auto) 0.0 10^3/uL (0.0-0.7) 07/10/23 05:00 Baso # (Auto) 0.0 10^3/uL (0.0-0.1) 07/10/23 05:00 Absolute Nucleated RBC 0.00 x10^3/uL 07/10/23 05:00 Total Counted 100 07/07/23 17:50 Band Neuts % (Manual) 3 % (0-10) 07/07/23 17:50 Abnorm Lymph % (Manual) 0 % 07/07/23 17:50 Metamyelocytes % 1 % (-0) H 07/07/23 17:50 Nucleated RBC % 0.0 /100WBC 07/10/23 05:00 Neutrophils # (Manual) 19.1 10^3/uL (1.5-6.6) H 07/07/23 17:50 Lymphocytes # (Manual) 0.8 10^3/uL (1.5-3.5) L 07/07/23 17:50 Monocytes # (Manual) 0.4 10^3/uL (0.0-1.0) 07/07/23 17:50 Eosinophils # (Manual) 0.0 10^3/uL (0-0.7) 07/07/23 17:50 Basophils # (Manual) 0.0 10^3/uL (0-0.1) 07/07/23 17:50 Differential Comment MANUAL DIFFERENTIAL 07/07/23 17:50 Platelet Estimate NORMAL (130-450,000) (NORMAL) 07/07/23 17:50 Platelet Morphology NORMAL APPEARANCE (NORMAL) 07/07/23 17:50 RBC Morph Micro Appear NORMAL APPEARANCE (NORMAL) 07/07/23 17:50 Sodium 139 mmol/L (135-145) 07/10/23 05:00 Potassium 3.8 mmol/L (3.5-4.5) 07/10/23 05:00 Chloride 103 mmol/L (101-111) 07/10/23 05:00 Carbon Dioxide 28 mmol/L (21-32) 07/10/23 05:00 Anion Gap 8.0 (6-13) 07/10/23 05:00 BUN 14 mg/dL (6-20) 07/10/23 05:00 Creatinine 0.8 mg/dL (0.6-1.3) 07/10/23 05:00 Estimated GFR (MDRD) 70 (>89) L 07/10/23 05:00 Glucose 101 mg/dL (74-104) 07/10/23 05:00 Calcium 9.2 mg/dL (8.5-10.3) 07/10/23 05:00 Magnesium 1.9 mg/dL (1.7-2.3) 07/09/23 05:17 Iron 16 ug/dL (50-212) L 07/10/23 05:00 TIBC 262 ug/dL (250-450) 07/10/23 05:00 % Saturation 6 % (20-50) L 07/10/23 05:00 Transferrin 187 mg/dL (203-362) L 07/10/23 05:00 Total Bilirubin 0.7 mg/dL (0.2-1.0) 07/07/23 17:50 AST 20 IU/L (10-42) 07/07/23 17:50 ALT 14 IU/L (10-60) 07/07/23 17:50 Alkaline Phosphatase 84 IU/L (42-121) 07/07/23 17:50 Total Protein 6.8 g/dL (6.4-8.9) 07/07/23 17:50 Albumin 4.7 g/dL (3.2-5.5) 07/07/23 17:50 Globulin 2.1 g/dL (2.1-4.2) 07/07/23 17:50 Albumin/Globulin Ratio 2.2 (1.0-2.2) 07/07/23 17:50 Lipase 27 U/L (11-82) 07/07/23 17:50 Vitamin B12 383 pg/mL (180-914) 07/10/23 05:00 Folate 11.3 ng/mL (5.90 - >24.8) 07/10/23 05:00 Urine Color STRAW 07/08/23 13:50 Urine Clarity CLEAR (CLEAR) 07/08/23 13:50 Urine pH 6.5 PH (5.0-7.5) 07/08/23 13:50 Ur Specific [place] <=1.005 (1.002-1.030) 07/08/23 13:50 Urine Protein NEGATIVE mg/dL (NEGATIVE) 07/08/23 13:50 Urine Glucose (UA) NEGATIVE mg/dL (NEGATIVE) 07/08/23 13:50 Urine Ketones 15 mg/dL (NEGATIVE) H 07/08/23 13:50 Urine Occult Blood MODERATE (NEGATIVE) H 07/08/23 13:50 Urine Nitrite NEGATIVE (NEGATIVE) 07/08/23 13:50 Urine Bilirubin NEGATIVE (NEGATIVE) 07/08/23 13:50 Urine Urobilinogen 0.2 (NORMAL) E.U./dL (NORMAL) 07/08/23 13:50 Ur Leukocyte Esterase NEGATIVE (NEGATIVE) 07/08/23 13:50 Urine RBC 6-10 /HPF (0-5) H 07/08/23 13:50 Urine WBC 0-3 /HPF (0-5) 07/08/23 13:50 Ur Squamous Epith Cells NONE SEEN (<= Few) 07/08/23 13:50 Urine Bacteria None Seen /HPF (None Seen) 07/08/23 13:50 Ur Microscopic Review INDICATED 07/08/23 13:50 Urine Culture Comments NOT INDICATED 07/08/23 13:50 Blood Type A POSITIVE 07/07/23 19:50 Antibody Screen NEGATIVE 07/07/23 19:50 Crossmatch IS Only See Detail 07/07/23 19:50 Sepsis Event Note (H) - Evaluation Current Stage of Sepsis: Ruled out
[2023-07-10] MEDS ORDERED: IRON DEXTRAN 1,000 MG in SODIUM CHLORIDE 0.9% 250 ML IV ONE (11:00)
[2023-07-10 11:06] LABS: ESTIMATED AVERAGE GLUCOSE 91 mg/dL (70-100); HEMOGLOBIN A1c% 4.8 % (4.27-6.07)
--- NOTE | 2023-07-10 13:24 | PROVIDER PROGRESS NOTE ---
Subjective - Prog Note Date Prog Note Date: 07/10/23 Prog Note Time: 13:22 - Subjective Pt reports feeling: Improved (S: Patient is doing well today. Does complain of constipation. No distal weakness or numbness noted. He has been up in physical therapy. Examination: Patient's dressing intact. Minimal tenderness and mild swelling around her incision site about the right hip. Moves her toes satisfactory. Ne) Objective - Vital Signs/Intake & Output Vital Signs: Vital Signs x48h Temp Pulse Resp BP Pulse Ox 07/10/23 07:25 36.4 C L 89 16 113/75 96 Intake & Output: Intake & Output 07/07/23 07/08/23 07/09/23 07/10/23 23:59 23:59 23:59 23:59 Intake Total 1150 1811.25 1000 520.0 Output Total 1450 2350 Balance 1150 361.25 -1350 520.0 - Lab Results Fish Bones: 07/10/23 05:00 07/10/23 05:00 Other Labs: Lab Results x24hrs 07/10/23 07/10/23 07/10/23 Range/Units 05:00 05:00 05:00 WBC 8.1 (4.8-10.8) x10^3/uL RBC 3.42 L (4.20-5.40) 10^6/uL Hgb 10.7 L (12.0-16.0) g/dL Hct 32.7 L (37.0-47.0) % MCV 95.6 (81.0-99.0) fL MCH 31.3 H (27.0-31.0) pg MCHC 32.7 (32.0-36.0) g/dL RDW 12.4 (12.0-15.0) % Plt Count 204 (130-450) 10^3/uL MPV 11.2 H (7.9-10.8) fL Neut # (Auto) 6.8 H (1.5-6.6) 10^3/uL Lymph # (Auto) 0.6 L (1.5-3.5) 10^3/uL [place] # (Auto) 0.7 (0.0-1.0) 10^3/uL Eos # (Auto) 0.0 (0.0-0.7) 10^3/uL Baso # (Auto) 0.0 (0.0-0.1) 10^3/uL Absolute Nucleated RBC 0.00 x10^3/uL Nucleated RBC % 0.0 /100WBC Sodium 139 (135-145) mmol/L Potassium 3.8 (3.5-4.5) mmol/L Chloride 103 (101-111) mmol/L Carbon Dioxide 28 (21-32) mmol/L Anion Gap 8.0 (6-13) BUN 14 (6-20) mg/dL Creatinine 0.8 (0.6-1.3) mg/dL Estimated GFR (MDRD) 70 L (>89) Glucose 101 (74-104) mg/dL Estimat Average Glucose (70-100) mg/dL Hemoglobin A1c % (4.27-6.07) % Calcium 9.2 (8.5-10.3) mg/dL Iron 16 L (50-212) ug/dL TIBC 262 (250-450) ug/dL % Saturation 6 L (20-50) % Transferrin 187 L (203-362) mg/dL Vitamin B12 383 (180-914) pg/mL Folate 11.3 (5.90 - >24.8) ng/mL 07/10/23 Range/Units 05:00 WBC (4.8-10.8) x10^3/uL RBC (4.20-5.40) 10^6/uL Hgb (12.0-16.0) g/dL Hct (37.0-47.0) % MCV (81.0-99.0) fL MCH (27.0-31.0) pg MCHC (32.0-36.0) g/dL RDW (12.0-15.0) % Plt Count (130-450) 10^3/uL MPV (7.9-10.8) fL Neut # (Auto) (1.5-6.6) 10^3/uL Lymph # (Auto) (1.5-3.5) 10^3/uL [place] # (Auto) (0.0-1.0) 10^3/uL Eos # (Auto) (0.0-0.7) 10^3/uL Baso # (Auto) (0.0-0.1) 10^3/uL Absolute Nucleated RBC x10^3/uL Nucleated RBC % /100WBC Sodium (135-145) mmol/L Potassium (3.5-4.5) mmol/L Chloride (101-111) mmol/L Carbon Dioxide (21-32) mmol/L Anion Gap (6-13) BUN (6-20) mg/dL Creatinine (0.6-1.3) mg/dL Estimated GFR (MDRD) (>89) Glucose (74-104) mg/dL Estimat Average Glucose 91 (70-100) mg/dL Hemoglobin A1c % 4.8 (4.27-6.07) % Calcium (8.5-10.3) mg/dL Iron (50-212) ug/dL TIBC (250-450) ug/dL % Saturation (20-50) % Transferrin (203-362) mg/dL Vitamin B12 (180-914) pg/mL Folate (5.90 - >24.8) ng/mL Sepsis Event Note (H) - Evaluation Current Stage of Sepsis: Ruled out
[2023-07-10] MEDS: ATORVASTATIN 10 MG TABLET PO SCH (20:23)
[2023-07-11] MEDS: ZOLPIDEM 5 MG TABLET PO PRN (00:35)
[2023-07-11] MEDS: ACETAMINOPHEN 325 MG TABLET PO SCH ×2 (06:39→14:28)
[2023-07-11] MEDS: CELECOXIB 100 MG CAPSULE PO SCH (08:19)
[2023-07-11] MEDS: PANTOPRAZOLE 40 MG VIAL IV SCH (08:19)
[2023-07-11] MEDS: CHOLECALCIFEROL 25 MCG TABLET PO SCH (08:19)
[2023-07-11] MEDS: CALCIUM CARBONATE CHEW 500 MG TABLET PO SCH (08:19)
[2023-07-11] MEDS: ASPIRIN EC 81 MG TABLET PO SCH (08:19)
[2023-07-11] MEDS: DOCUSATE SODIUM 250 MG CAPSULE PO SCH (08:27)
[2023-07-11] MEDS: SENNA 8.6 MG TABLET PO SCH (08:27)
[2023-07-11] MEDS: SODIUM CHLORIDE FLUSH 0.9% 10 ML SYRINGE IVP SCH (08:27)
[2023-07-11] MEDS: polyethylene glycoL 3350 17 GM PACKET PO SCH (08:27)
[2023-07-11] MEDS: oxyCODONE 5 MG TABLET PO PRN (08:27)
--- NOTE | 2023-07-11 08:47 | Discharge Plan ---
"Discharge Plan for SNF / [facility] - Discharge Plan And Transition Orders Problem Reviewed?: Yes Disposition: [address] [facility] DC/Xfer Condition: Fair Allergies and Adverse Reactions: Allergies Allergy/AdvReac Type Severity Reaction Status Date / Time morphine Allergy Rash Verified 07/08/23 08:56 Health Concerns: Patient was admitted after a fall causing a hip fracture. She underwent successful hip surgery. We found that she has iron deficiency anemia from inadequate oral intake and requires a soft diet because of trouble swallowing and chronic abdominal pain. She has a renal cyst that may be compressing parts of her intestines and stomach. There is an upcoming appointment to manage that cyst. She now is being discharged to SNF for PT and OT rehab after the hip surgery. Plan of Treatment: Daily PT and OT rehab. Medications for blood pressure have been adjusted and she is on new medicines for the iron deficiency anemia. Care Goals: Improvement in symptoms and stabilization of the goals. Assessment: The patient agrees and understands the plan. - SNF / [facility] Transition Orders Admit to (Facility): [facility] Under the care of (Name): AURE Conteh Discharge Diagnosis: (1) Closed right hip fracture [place] to be removed at [facility] in 2 weeks (2) Iron deficiency anmeia On new Iron replacement (3) Orthostatic hypotension Improved (4) Hx Hypertension BP meds were decreased due to orthostasis (5) Odynophagia Chronic. Needs a soft diet (6) Renal cyst Has outpatient appt in [facility] for F/U managaement Medicare Certification Statement: I certify that Post Hospital fci care is medically necessary on a continuing basis for any of the conditions for which she/he is receiving care during hospitalization. Notify PCP of admission and forward orders to primary provider for signature. Weight on admission and: Weekly Call PCP immediately if weight increases by: 5 kg Other Notification Orders: Call PCP immediately if patient develops dyspnea, chest pain/tightness or edema. House Bowel Program: Yes Additional Bowel Program Orders: If no BM after 2 days, nurse may give M.O.M. 30ml PO PRN and/or ducolax Supp 1 [place] and/or GURPREET 250mg P.O., and/or senna 1-2 tabs PO. On day 3 nurse may give repeat above order until residents constipation is resolved. Annual Influenza Vaccine (between Apr 10 and March 31st): Yes Two-step PPD per WAC [id number] or approved exception documents: Yes Treatments & Other Orders: Daily or more frequent PT and OT Medication Orders: PLEASE REFER TO THE DISCHARGE MEDICATION LIST. Insulin Orders?: No - Medications New Prescriptions: oxyCODONE [Roxicodone] 5 mg PO Q6HR PRN #10 tab PRN Reason: Severe Breakthrough pain(8-10) Aspirin EC [Ecotrin] 81 mg PO BID #60 tab amLODIPine [Norvasc] 5 mg PO QPM #30 tab Pantoprazole [Protonix] 40 mg PO DAILY #30 tablet Calcium Carbonate [Tums (Calcium Carbonate 500mg)] 500 mg PO DAILY #30 tab Cholecalciferol [Vitamin D3] 50 mcg PO DAILY #30 tab Simvastatin [Zocor] 10 mg PO QPM #30 tablet - Diet Type: No added salt Texture: Mech soft Liquids: Thin May have monthly special meal: Yes - Therapies | Activity Therapy: Evaluation | Treat if indicated: PT, OT Rehabilitation Potential: Maximize functional status Activity: Activity as Tolerated Weight Bearing: Full Weight Assistance Devices: Walker Follow Up: See PCP rehaband Urologist after discharge from SNF."
--- NOTE | 2023-07-11 09:19 | DISCHARGE SUMMARY ---
Discharge Summary Admit Date: 07/07/23 Discharge Date: 07/11/23 Discharging Provider: Dr Naye Alberts Primary Care Provider: AURE Choi Code Status: Attempt Resuscitation Condition at Discharge: Fair Discharge Disposition: SNF DC/Xfer - HPI History of Present Illness: Twyla Moya is a 77-year-old [place] woman who presented to ER with a closed head injury and right hip pain. She apparently stumbled attempting to step over the curb today on her afternoon walk. She fell landing on the right hip as a re sult of this accident. Noted immediate pain in her right side and hip. Also noted a closed head injury as a result of the fall. She was unable to stand or weight-bear on the right side after her fall. She was taken by ambulance to the emergency room here at [facility]. Her evaluation included x-rays of her right hip showing a displaced right femoral neck fracture. She had her s calp laceration repaired in the emergency room. 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 She had a renal cyst drained in Apr of this year with no complications . She is admitted to the Hospitalist service, Orthopedics will perform surgery. - HOSPITAL COURSE Hospital Course: (1) Closed right hip fracture Orthopedic surgery was successful. She started PT and OT and will be discharged to SNF. Pain meds and BID aspirin ordered. She is also on new calcium and vitamin D. [place] to be removed at [facility]o clinic in 2 weeks (2) Head laceration Imaging was negative for trauma or bleeding. She had stapling done in the ER and got a Tetanus shot. (3) Iron deficiency anmeia Hemoglobin at admission dropped to blank. She got IV iron dextran x1. Now on new Iron replacement therapy. (4) Orthostatic hypotension When anemic, she had orthostasis. Her BID Losartan was never resumed while here. Also her nighttime dose of Amlodipine was decreased from 10 mg to 5 mg. 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 She needs a soft diet and needs large pills crushed. (7) Renal cyst She says she thinks this is pushing on her intestines and stomach causing early satiety and occasional abdominal pain. She has no Applied Anthropologist. She has an outpatient appt in mid-Jul for Urology F/U management. - ALLERGIES Allergies/Adverse Reactions: Allergies Allergy/AdvReac Type Severity Reaction Status Date / Time morphine Allergy Rash Verified 07/08/23 08:56 - MEDICATIONS Home Medications: Ambulatory Orders Medication Instructions Recorded Confirmed Zolpidem Tartrate [Ambien] 10 mg PO HS PRN 07/08/23 07/08/23 Acetaminophen [Tylenol] 650 mg PO Q6HR tab 07/11/23 Aspirin EC [Ecotrin] 81 mg PO BID #60 tab 07/11/23 Calcium Carbonate [Tums (Calcium 500 mg PO DAILY #30 tab 07/11/23 Carbonate 500mg)] Cholecalciferol [Vitamin D3] 50 mcg PO DAILY #30 tab 07/11/23 Pantoprazole [Protonix] 40 mg PO DAILY #30 tablet 07/11/23 Simvastatin [Zocor] 10 mg PO QPM #30 tablet 07/11/23 amLODIPine [Norvasc] 5 mg PO QPM #30 tab 07/11/23 oxyCODONE [Roxicodone] 5 mg PO Q6HR PRN #10 tab 07/11/23 - PHYSICAL EXAM AT DISCHARGE General Appearance: positive: No acute distress, Alert, Other (Thin female) Eyes Bilateral: positive: Normal inspection, EOMI ENT: positive: ENT inspection nml, No signs of dehydration Neck: positive: Nml inspection, No JVD Respiratory: positive: No respiratory distress, Breath sounds nml Cardiovascular: positive: Regular rate & rhythm, No murmur Abdomen: positive: Non-tender, Nml bowel sounds, No distention Skin: positive: Warm, Dry Extremities: positive: No pedal edema Neurologic/Psychiatric: positive: Oriented x3, CN's nml (2-12), Motor nml - LABS Result Diagrams: 07/10/23 05:00 07/10/23 05:00 - DIAGNOSTIC IMAGING Diagnostic Imaging Results: Final report reviewed - QUALITY (Female Hip Fx Only) Was patient sent home on osteoporosis medication?: Yes - FOLLOW UP Follow Up: See PCP and Urologist after discharge from SNF. Consider seeing a Applied Anthropologist. - TIME SPENT Time Spent in Discharge (Minutes): 40
[2023-07-11 13:52] VITALS: BP 111/77; O2SAT 98
== END 2023-07-11 14:44 | DRG 522 ==
LOC: EDUNIT# → ED 17:31 → MS2 21:41
PROVIDERS: ADMIT Internal Medicine; ATTEND Internal Medicine
PROC: 0SR90JA Replacement of Right Hip Joint with Synthetic Substitute, Uncemented, Open Approach (ICD-10-PCS; principal; 2023-07-08 07:30)
DX: S72.011A Unspecified intracapsular fracture of right femur, initial encounter for closed fracture (principal); S01.01XA Laceration without foreign body of scalp, initial encounter; W01.0XXA Fall on same level from slipping, tripping and stumbling without subsequent striking against object, initial encounter; D50.9 Iron deficiency anemia, unspecified; G47.00 Insomnia, unspecified; D72.829 Elevated white blood cell count, unspecified; I95.1 Orthostatic hypotension; R13.10 Dysphagia, unspecified; N28.1 Cyst of kidney, acquired; I10 Essential (primary) hypertension; E78.00 Pure hypercholesterolemia, unspecified; K59.00 Constipation, unspecified
CPT/HCPCS: 12001; 36415; 70450; 71045; 72125; 72170; 73502; 80048; 80053; 81001; 82607; 82746; 83036; 83540; 83690; 83735; 84466; 85025; 86850; 86900; 86901; 86920; 90471; 90715; 93005; 96374; 96376; 97116; 97161; 97165; 99285; A9270; J1170; J1750; J3370; J7120; J8499; Q0162; 81003; 87086

== ENCOUNTER 2023-07-27 01:10 | Outpatient (CLI) | payer MEDICARE, OTHER | END 2023-07-27 01:11 | disposition critical access hospital (66) | LOC: EMS 01:10 | DX: S79.911A Unspecified injury of right hip, initial encounter (principal); W06.XXXA Fall from bed, initial encounter; Y92.003 Bedroom of unspecified non-institutional (private) residence as the place of occurrence of the external cause | CPT/HCPCS: A0425; A0427 ==

== ENCOUNTER 2023-07-27 01:35 | Day surgery (SDC) | payer MEDICARE, OTHER ==
--- NOTE | 2023-07-27 01:53 | ED Physician Documentation ---
PD HPI LOWER EXT INJURY - Stated complaint Stated Complaint: FALL/HIP INJ - Chief complaint Chief Complaint: Trauma Ext - History obtained from History obtained from: Patient, EMS - Additional information Additional information: JAMILA. HPI from patient, EMS. Patient had ORIF of right hip fracture 07/08/23 ([facility]). Tonight she fell when getting out of bed to use the bathroom. She had immediate and severe right hip pain and called 911. No head injury, denies headache, denies neck pain and denies LOC. The pain is worse with any movement of the right hip. She received total of 150 micrograms fentanyl en route by EMS with improvement. 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 - Present Medications Home Medications: Ambulatory Orders Medication Instructions Recorded Confirmed Zolpidem Tartrate [Ambien] 10 mg PO HS PRN 07/08/23 07/27/23 Acetaminophen [Tylenol] 650 mg PO Q6HR tab 07/11/23 07/27/23 amLODIPine [Norvasc] 5 mg PO QPM #30 tab 07/11/23 07/27/23 oxyCODONE [Roxicodone] 5 mg PO Q6HR PRN #10 tab 07/11/23 07/27/23 Losartan Potassium 25 mg PO DAILY 07/27/23 07/27/23 Magnesium Hydroxide [Milk of 30 ml PO DAILY PRN 07/27/23 07/27/23 Magnesia] oxyCODONE [Roxicodone] 5 mg PO Q4-6H PRN #7 tablet 07/27/23 - Allergies Allergies/Adverse Reactions: Allergies Allergy/AdvReac Type Severity Reaction Status Date / Time morphine Allergy Rash Verified 07/27/23 01:44 - Social History Does the pt smoke?: No Smoking Status: Never smoker Does the pt drink ETOH?: No Does the pt have substance abuse?: No - Immunizations Immunizations are current?: Yes - POLST Patient has POLST: No PD ED PE NORMAL - Vitals Vital signs reviewed: Yes - General General: Alert and oriented X 3, Well developed/nourished, Other (obvious painful distress) - Cardiac Cardiac: RRR, No murmur - Respiratory Respiratory: No respiratory distress, Clear bilaterally - Abdomen Abdomen: Soft, Non tender - Derm Derm: Normal color, Warm and dry PD ED PE EXPANDED - Extremities Extremities: Deformity, Tenderness, Limited ROM, Right hip, Pedal Pulses Present, Other (RLE foreshortened and internally rotated. right hip surgical site is C/D/I with joey in place and intact) Results - Vitals Vitals: Vital Signs - 24 hr 07/27/23 07/27/23 07/27/23 03:03 03:50 04:01 Temperature 36.0 C L 36.0 C L Heart Rate 60 74 77 Respiratory 13 18 13 Rate Blood Pressure 106/73 132/82 H 119/80 O2 Saturation 98 98 97 If not protocol : Oxygen Flow, liters/minute 07/27/23 07/27/23 07/27/23 04:11 04:41 04:46 Temperature 36.2 C L Heart Rate 73 77 77 Respiratory 13 14 18 Rate Blood Pressure 119/80 115/78 128/106 H O2 Saturation 97 99 99 If not protocol 2 2 2 : Oxygen Flow, liters/minute 07/27/23 07/27/23 07/27/23 04:48 04:49 04:51 Temperature 36.1 C L 36.1 C L Heart Rate 71 72 69 Respiratory 16 15 16 Rate Blood Pressure 122/81 H 122/83 H 119/80 O2 Saturation 97 98 97 If not protocol 2 2 2 : Oxygen Flow, liters/minute 07/27/23 07/27/23 07/27/23 04:56 05:02 05:07 Temperature 36.4 C L 36.5 C Heart Rate 73 70 Respiratory 70 H 13 19 Rate Blood Pressure 108/72 115/80 115/80 O2 Saturation 97 97 97 If not protocol : Oxygen Flow, liters/minute 07/27/23 07/27/23 07/27/23 05:12 05:29 05:33 Temperature 36.9 C Heart Rate 71 73 Respiratory 17 20 14 Rate Blood Pressure 118/76 119/78 O2 Saturation 97 97 If not protocol : Oxygen Flow, liters/minute 07/27/23 07/27/23 07/27/23 05:34 06:00 06:42 Temperature 36.8 C 36.4 C L 36.5 C Heart Rate 74 72 74 Respiratory 12 18 14 Rate Blood Pressure 119/78 122/76 133/96 H O2 Saturation 97 95 96 If not protocol : Oxygen Flow, liters/minute 07/27/23 07/27/23 07/27/23 07:27 07:30 08:00 Temperature Heart Rate 73 65 70 Respiratory 14 15 16 Rate Blood Pressure 116/62 119/79 117/77 O2 Saturation 100 96 97 If not protocol : Oxygen Flow, liters/minute 07/27/23 07/27/23 07/27/23 08:30 09:00 09:30 Temperature Heart Rate 69 72 70 Respiratory 16 16 15 Rate Blood Pressure 115/78 121/81 H 122/79 O2 Saturation 96 97 96 If not protocol : Oxygen Flow, liters/minute 07/27/23 07/27/23 07/27/23 10:00 10:30 11:00 Temperature Heart Rate 75 67 68 Respiratory 16 13 15 Rate Blood Pressure 122/82 H 122/83 H 121/78 O2 Saturation 97 99 96 If not protocol : Oxygen Flow, liters/minute 07/27/23 07/27/23 07/27/23 11:30 12:00 12:30 Temperature Heart Rate 73 69 69 Respiratory 16 16 16 Rate Blood Pressure 120/80 123/84 H 126/85 H O2 Saturation 98 97 97 If not protocol : Oxygen Flow, liters/minute 07/27/23 07/27/23 07/27/23 13:00 13:59 14:05 Temperature 37.3 C Heart Rate 78 65 81 Respiratory 16 14 22 Rate Blood Pressure 126/81 H 114/79 125/87 H O2 Saturation 97 100 97 If not protocol : Oxygen Flow, liters/minute 07/27/23 14:21 Temperature Heart Rate 78 Respiratory 15 Rate Blood Pressure 144/90 H O2 Saturation 99 If not protocol : Oxygen Flow, liters/minute Oxygen O2 Source Room air Oxygen Flow Rate 2 - Rads (name of study) hip w/ pelvis 2-3view right Relevant Findings:: Prelim report reviewed, See rad report Procedures - Reduction Body part reduced: Right, Hip, prosthetic Fracture or dislocation: Dislocation Anesthesia: Fentanyl, Other (propofol) Hip reduction technique: Allis - flex/pull/rotate, Fulcrum Reduction aftercare: Unable to reduce - Procedural sedation Sedation prep: Informed consent, Time out completed, ASA 2 - mild disease Sedation Medications: propofol (20 mg IVP then 10mg IVP then 10mg IVP for total of 40 mg) Mallampati classification: II Patient status during sedation: Responds to tactile, Vitals remained stable, Maintained airway, Recovered uneventfully Sedation recovery: Recovered uneventfully, Back to baseline Time in sedation (Minutes): 15 PD Medical Decision Making - ED course Complexity details: reviewed old records (I reviewed the operative note from 07/08/23), reviewed results, re-evaluated patient, considered differential, d/w patient, d/w family ED course: plain-film xrays demonstrate superior dislocation of the right hip arthroplasty. After discussion of this result w/ patient and (in ED at bedside), we discussed conscious sedation risks/benefits and patient agrees with this and consent obtained. Unfortunately, despite appropriate level of sedation, I was unable to achieve reduction despite multiple attempts. I contacted orthopedic surgery foundation director for [facility] (Dr. Oro). He then discussed this case with Dr. Riggs; plan is hold in ED and orthopedic surgery will evaluate her in [facility] ED later this morning and attempt closed reduction. Patient and spouse updated with this plan. Care of patient turned over to oncoming ED physician (Dr. Hickman) pending evaluation by orthopedics. Departure - Departure Disposition: ED Transfer to [facility] Clinical Impression: Hip dislocation, right Qualifiers: Encounter type: initial encounter Qualified Code(s): S73.004A - Unspecified dislocation of right hip, initial encounter Condition: Stable Discharge Date/Time: 07/27/23 14:10
[2023-07-27] MEDS ORDERED: fentaNYL 100 MCG/2 ML VIAL IVP STA ×4 (01:59→09:47)
[2023-07-27] MEDS ORDERED: PROPOFOL 200 MG/20 ML VIAL IVP STA (03:44)
[2023-07-27] MEDS ORDERED: SODIUM CHLORIDE 0.9% 1,000 ML IV STA (06:46)
--- NOTE | 2023-07-27 07:56 | XRAY Report ---
PROCEDURE: Hip w/Pelvis 2-3V RT INDICATIONS: fall, pain, recent right hip ORIF TECHNIQUE: AP pelvis with lateral view(s) of the right hip(s). COMPARISON: Pelvis radiograph 07/08/2023 FINDINGS: Bones: Right hip arthroplasty in place. There is superior dislocation of the femoral arthroplasty he ad. Partially seen pelvic fixation screws also present. Soft tissues: Postsurgical changes are present. IMPRESSION: Superior dislocation of the right hip arthroplasty. Agree with preliminary report. Reviewed by: Ashkan Clark MD on 07/27/2023 7:54 AM PST Approved by: Ashkan Clark MD on 07/27/2023 7:54 AM PST Station ID: [id number]
[2023-07-27] MEDS ORDERED: KETOROLAC 15 MG/ML VIAL IVP STA (09:47)
[2023-07-27] MEDS ORDERED: ONDANSETRON 4 MG/2 ML VIAL IVP PRN ×3 (12:39→14:05)
[2023-07-27] MEDS ORDERED: fentaNYL 100 MCG/2 ML VIAL IVP PRN ×2 (12:39→13:55)
[2023-07-27] MEDS ORDERED: METOCLOPRAMIDE 10 MG/2 ML VIAL IVP PRN ×2 (12:39→13:55)
[2023-07-27] MEDS ORDERED: ePHEDrine 50 MG/ML VIAL IVP PRN ×2 (12:39→13:55)
[2023-07-27] MEDS ORDERED: ATROPINE ABBOJECT 1 MG/10 ML SYRINGE IVP PRN ×2 (12:39→13:55)
[2023-07-27] MEDS ORDERED: NALOXONE 0.4 MG/ML VIAL IVP PRN ×2 (12:39→13:55)
--- NOTE | 2023-07-27 12:39 | ANESTHESIA ---
Pre-Anesthesia VS, & Labs - Diagnosis R hip dislocation s/p hemiarthroplasty - Procedure R hip closed reduction Vital Signs: Temp Pulse Resp BP Pulse Ox O2 Flow Rate 36.5 C 68 15 121/78 96 2 07/27/23 06:42 07/27/23 11:00 07/27/23 11:00 07/27/23 11:00 07/27/23 11:00 07/27/23 04:51 Height: 5 ft Weight (kg): 48 kg Body Mass Index: 20.6 BMI Classification: Normal - NPO >8 hours - Is Patient ?: No - Lab Results Lab results reviewed: Yes Home Medications and Allergies Home Medications: Ambulatory Orders Losartan Potassium 25 mg PO DAILY 07/27/23 Magnesium Hydroxide [Milk of Magnesia] 30 ml PO DAILY PRN 07/27/23 Active Medications Sodium Chloride (Normal Saline 0.9%) 1,000 mls @ 150 mls/hr IV .Q6H40M STA Stop: 07/27/23 13:25 Last Infusion: 07/27/23 11:21 Dose: Infused Zolpidem Tartrate [Ambien] 10 mg PO HS PRN 07/08/23 Losartan Potassium 25 mg PO DAILY 07/27/23 Magnesium Hydroxide [Milk of Magnesia] 30 ml PO DAILY PRN 07/27/23 Allergies/Adverse Reactions: Allergies Allergy/AdvReac Type Severity Reaction Status Date / Time morphine Allergy Rash Verified 07/27/23 01:44 Anes History & Medical History - Anesthetic History Anesthesia Complications: reports: No previous complications Family history of Anesthesia Complications: Denies Family history of Malignant Hyperthermia: Denies - Medical History Cardiovascular: reports: Hypertension Pulmonary: reports: None Gastrointestinal: reports: Other Urinary: reports: None Neuro: reports: None, Other Musculoskeletal: reports: None, Other (R hip dislocation) Endocrine/Autoimmune: reports: None Blood Disorders: reports: None Skin: reports: None Smoking Status: Never smoker Other Past Medical History: Constipation - Surgical History General: reports: Appendectomy Gynecologic: reports: Hysterectomy Orthopedic: reports: Hip replacement Exam General: Alert, Oriented x3, Cooperative Dental: WNL Mouth Openin Fingerbreadth Neck Mobility: Normal Mallampati classification: II Thyromental Distance: 4-6 cm Respiratory: Lungs clear, Normal breath sounds, No respiratory distress Cardiovascular: Regular rate Extremities: Other (pain with movement at R) Neurological: Normal speech Mental/Cognitive Status: Alert/Oriented X3, Normal for patient Cognitive Status: Within normal limits Plan Anesthesia Type: MAC, Total IV Consent for Procedure(s) Verified and Reviewed: Yes Code Status: Attempt Resuscitation ASA classification: 2-Mild systemic disease Is this case an emergency?: No
[2023-07-27] MEDS ORDERED: LACTATED RINGERS 1,000 ML IV SCH ×2 (13:00→13:55)
[2023-07-27] MEDS ORDERED: MIDAZOLAM 2 MG/2 ML VIAL ONE (13:09)
[2023-07-27] MEDS ORDERED: fentaNYL 100 MCG/2 ML VIAL ONE (13:09)
[2023-07-27] MEDS ORDERED: PROPOFOL 200 MG/20 ML VIAL IVP ONE (13:11)
--- NOTE | 2023-07-27 13:17 | HISTORY & PHYSICAL EXAMINATION ---
HPI - Admitted From Admitted from: ED - History of Present Illness Severity at the worst: reports: Moderate HPI Comment/Other: 77yo F presents to the ED with right hip pain following a ground level fall. PMH significant for right hip hemiarthroplasty on 07/08/[address] Harding. She was recovering well from the procedure until early this morning. She sustained a fall when trying to use the bathtoom. She was then broght to the ED via ambulance. She was found to have a right hip dislocation on xray. A sedation and closed reduction was attemtped in the ED however it was unsuccessful. Ortho was then consulted. Pt reports isolated right hip pain. 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 Social & Family Hx - Social History Does the pt smoke?: No Smoking Status: Never smoker Does the pt drink ETOH?: No Does the pt have substance abuse?: No - POLST Patient has POLST: No Meds/Allgy - Home Medications Home Medications: Ambulatory Orders Medication Instructions Recorded Confirmed Zolpidem Tartrate [Ambien] 10 mg PO HS PRN 07/08/23 07/27/23 Acetaminophen [Tylenol] 650 mg PO Q6HR tab 07/11/23 07/27/23 amLODIPine [Norvasc] 5 mg PO QPM #30 tab 07/11/23 07/27/23 oxyCODONE [Roxicodone] 5 mg PO Q6HR PRN #10 tab 07/11/23 07/27/23 Losartan Potassium 25 mg PO DAILY 07/27/23 07/27/23 Magnesium Hydroxide [Milk of 30 ml PO DAILY PRN 07/27/23 07/27/23 Magnesia] - Allergies Allergies/Adverse Reactions: Allergies Allergy/AdvReac Type Severity Reaction Status Date / Time morphine Allergy Rash Verified 07/27/23 01:44 Exam - Vital Signs Reviewed Vital Signs: Yes Vital Signs: Vital Signs x48h Temp Pulse Resp BP Pulse Ox 07/27/23 13:00 78 16 126/81 H 97 07/27/23 12:30 69 16 126/85 H 97 07/27/23 12:00 69 16 123/84 H 97 07/27/23 11:30 73 16 120/80 98 07/27/23 11:00 68 15 121/78 96 07/27/23 10:30 67 13 122/83 H 99 07/27/23 10:00 75 16 122/82 H 97 07/27/23 09:30 70 15 122/79 96 07/27/23 09:00 72 16 121/81 H 97 07/27/23 08:30 69 16 115/78 96 07/27/23 08:00 70 16 117/77 97 07/27/23 07:30 65 15 119/79 96 07/27/23 07:27 73 14 116/62 100 07/27/23 06:42 36.5 C 74 14 133/96 H 96 07/27/23 06:00 36.4 C L 72 18 122/76 95 07/27/23 05:34 36.8 C 74 12 119/78 97 07/27/23 05:33 36.9 C 73 14 119/78 97 07/27/23 05:29 20 - Physical Exam General Appearance: positive: Mild distress Eyes Bilateral: positive: Normal inspection ENT: positive: ENT inspection nml (RIght leg shortened and internally rotated) Neck: positive: Nml inspection Respiratory: positive: Chest non-tender Cardiovascular: positive: Regular rate & rhythm Peripheral Pulses: positive: 1+ Impression/Plan - Problem List Problem List: 77yo F with dislocation of the right hip s/p right hip hemiarthroplasty on 07/08/23. After a conversation with the patient, it was decided that she will require a closed vs open reduction of the the right hip. The risk, benefits and alternatives of the procedure were discussed to include fracture, inability to reduce the dislocation and need for revision of the imp lants, if open procedure then bleeding, infection, damage to surrounding structures, further instability and need for additional procedures. The patient understood the risks and wanted to move forward with the procedure. The consent was signed in the ED. SHe was consented for a right hip closed vs open reduction. Adolfo Mijares MD
[2023-07-27] MEDS ORDERED: LACTATED RINGERS 1,000 ML IV ONE (13:59)
[2023-07-27] MEDS ORDERED: ACETAMINOPHEN 500 MG TABLET PO PRN (14:05)
[2023-07-27] MEDS ORDERED: oxyCODONE 5 MG TABLET PO PRN (14:05)
[2023-07-27] MEDS ORDERED: CELECOXIB 100 MG CAPSULE PO PRN (14:05)
--- NOTE | 2023-07-27 14:10 | ANESTHESIA POST OP EVALUATION ---
Anesthesia Post Eval - Post Anesthesia Eval Vitals: Last Vital Signs Temp 37.3 C 07/27/23 13:59 Pulse 81 07/27/23 14:05 Resp 22 07/27/23 14:05 BP 125/87 H 07/27/23 14:05 Pulse Ox 97 07/27/23 14:05 O2 Flow Rate 2 07/27/23 04:51 CV Function Including HR & BP: Stable Pain Control: Satisfactory Nausea & Vomiting: Negative Mental Status: Baseline Respiratory Status: Airway Patent Hydration Status: Satisfactory Anesthesia Complications: None
--- NOTE | 2023-07-27 14:19 | OPERATIVE REPORT ---
Operative Report - General Procedure Date: 07/27/23 Planned Procedure: Right Hip CLosed vs Open Reduction Pre-Op Diagnosis: Right hip periprosthetic dislocation Procedure Performed: Closed reduction of the right hip dislocation - Procedure Note Primary Surgeon: Adolfo Mijares Secondary Surgeon: Oneil - Other Other Information/Narrative: preoperative diagnosis: Periprosthetic right hip dislocation postoperative diagnosis: Same procedures performed: Closed reduction of the right hip dislocation indications for surgery: Ms. bartholomew Underwent a right hip hemiarthroplasty on July 08, 2023. She was recovering well until earlier this morning where she had a ground-level fall and dislocated her right hip. She presented to the emergency department where they made a attempt at reducing the dislocation. This was unsuccessful and orthopedics was consulted. after a long conversation with the patient and her it was determined that she would benefit from a right hip closed versus open reduction in the operating room. The risks, benefits and alternatives were discussed. Patient signed the consent form in the emergency department. Procedure: Patient was brought back to the operating table where sedation was applied. After adequate sedation we started the procedure with obtaining radiographs of the right hip and femur. There was no fractures noted and it was confirmed that she had a right posterior hip dislocation. We then attempted our closed reduction by flexing the contralateral leg to 90 degrees. Her affected hip on the right side was then flexed over the forearm and with slight longitudinal traction with the surgeons forearm we were able to get a closed reduction with a visible confirmation. The reduction was then confirmed with fluoroscopy in the AP and lateral views. She was also then taken through range of motion and she was stable up through 90 degrees of flexion. Her joey from the procedure were then removed and she was placed in an abduction pillow. She was then awakened in the operating room and transferred to the PACU in a stable condition. Postoperative plan: Discharge today given strict posterior hip precautions follow-up in the orthopedic clinic in the next [address] Meaghan Mijares MD
[2023-07-27 14:22] VITALS: BP 144/90; O2SAT 99
--- NOTE | 2023-07-27 15:07 | XRAY Report ---
PROCEDURE: OR C-Arm Procedure INDICATIONS: dislocated hip right FLUORO TIME: 0:04 MIN TECHNIQUE: Intraoperative views during right hip relocation. COMPARISON: None. FINDINGS: Intraoperative views during right hip arthroplasty relocation. IMPRESSION: Intraoperative views during right hip arthroplasty relocation. Reviewed by: Jerry Das MD on 07/27/2023 3:05 PM PST Approved by: Jerry Das MD on 07/27/2023 3:05 PM PST Station ID: [id number]
== END 2023-07-27 14:08 | disposition home or self-care (01) ==
LOC: EDUNIT# → ED 01:35 → SDS 14:07
PROVIDERS: ATTEND Orthopaedic Surgery
DX: T84.020A Dislocation of internal right hip prosthesis, initial encounter (principal); I10 Essential (primary) hypertension
CPT/HCPCS: 27266; 73502; J7120

== ENCOUNTER 2023-08-06 09:30 | Outpatient (CLI) | payer MEDICARE, OTHER ==
--- NOTE | 2023-08-06 18:52 | XRAY Report ---
PROCEDURE: Hip 2 View RT INDICATIONS: RIGHT HIP ARTHROPLASTY TECHNIQUE: 2 view(s) of the hip were acquired. COMPARISON: None FINDINGS: Bones: The right hip arthroplasty in good position. No evidence of hardware failure or loosening. Lef t hip mild joint space narrowing. No evidence of fracture. Soft tissues: No suspicious soft tissue calcifications or masses. IMPRESSION: Left hip arthroplasty in good position Reviewed by: Jesus Alberto Hilliard MD on 08/06/2023 5:51 PM AKST Approved by: Jesus Alberto Hilliard MD on 08/06/2023 5:51 PM AKST Station ID: [id number]
== END 2023-08-06 23:59 | disposition home or self-care (01) ==
LOC: DI.WOS 09:30
PROVIDERS: ATTEND Orthopaedic Surgery
DX: S72.091A Other fracture of head and neck of right femur, initial encounter for closed fracture (principal); Z96.641 Presence of right artificial hip joint

== ENCOUNTER 2023-08-25 08:14 | Outpatient (CLI) | payer MEDICARE, OTHER ==
[2023-08-25 08:47] LABS: BASOPHILS # (AUTO) 0.1 10^3/uL (0.0-0.1); BASOPHILS % (AUTO) 1.3 %; EOSINOPHILS # (AUTO) 0.1 10^3/uL (0.0-0.7); EOSINOPHILS % (AUTO) 1.6 %; HCT - HEMATOCRIT 39.3 % (37.0-47.0); HGB - HEMOGLOBIN 12.9 g/dL (12.0-16.0); LYMPHOCYTES # (AUTO) 0.7 10^3/uL (1.5-3.5); LYMPHOCYTES % (AUTO) 11.3 %; MEAN CORPUSCULAR HEMOGLOBIN 31.2 pg (27.0-31.0); MEAN CORPUSCULAR HGB CONC 32.8 g/dL (32.0-36.0); MEAN CORPUSCULAR VOLUME 95.2 fL (81.0-99.0); MEAN PLATELET VOLUME 10.6 fL (7.9-10.8); MONOCYTES # (AUTO) 0.3 10^3/uL (0.0-1.0); MONOCYTES % (AUTO) 4.7 %; NEUTROPHILS % (AUTO) 80.8 %; PLT - PLATELET COUNT 293 10^3/uL (130-450); RED BLOOD COUNT 4.13 10^6/uL (4.20-5.40); RED CELL DISTRIBUTION WIDTH 13.2 % (12.0-15.0); WHITE BLOOD COUNT 6.2 x10^3/uL (4.8-10.8)
--- NOTE | 2023-08-25 08:58 | DEXA Report ---
PROCEDURE: Dexa Spine and/or Hip INDICATIONS: POST MENOPAUSAL TECHNIQUE: Dual energy x-ray absorptiometry (DXA) was performed on a eBIZ.mobility System. Regions measur ed are the AP Spine, femoral neck, and if needed forearm. COMPARISON: 01/30/2021 FINDINGS: Lumbar Spine: Bone Mineral Density 1.05 g/cm/cm,T score -1.1. Previously -1.4 Left Femoral Neck: Bone Mineral Density 0.70 g/cm/cm, T score -2.4, previously -1.7. Left Hip: Bone Mineral Density 0.84 g/cm/cm,T score -1.3. Previously -1.2 (T score greater or equal to -1.0: NORMAL) (T score from -1.1 to -2.4: OSTEOPENIA) (T score less than or equal to -2.5 to: OSTEOPOROSIS) Impression: By WHO criteria, this patient has low bone density (osteopenia). There has been a significant decrease in the T score for the femoral neck, now -2.4. Other T-scores a re similar to prior. Patients with diagnosis of osteoporosis or osteopenia should have regular bone mineral density assess ment. For those eligible for Medicare, routine testing is allowed once every 2 years. Testing frequ ency can be increased for patients who have rapidly progressing disease or for those who are receivin g medical therapy to restore bone mass. Reviewed by: Ashkan Clark MD on 08/25/2023 8:57 AM PST Approved by: Ashkan Clark MD on 08/25/2023 8:57 AM PST Station ID: [id number]
[2023-08-25 08:59] LABS: ALBUMIN 4.7 g/dL (3.2-5.5); ALKALINE PHOSPHATASE 75 IU/L (42-121); ALT ALANINE AMINOTRANSFERASE 9 IU/L (10-60); AST ASPARTATE AMINOTRANSFERASE 14 IU/L (10-42); BILIRUBIN,TOTAL 0.9 mg/dL (0.2-1.0); BUN - BLOOD UREA NITROGEN 12 mg/dL (6-20); CALCIUM 9.9 mg/dL (8.5-10.3); CARBON DIOXIDE - CO2 29 mmol/L (21-32); CHLORIDE 102 mmol/L (101-111); CHOL/HDL RATIO 4.7 (<4.4); CHOLESTEROL 220 mg/dL; CREATININE 0.8 mg/dL (0.6-1.3); GFR - MDRD 70 (>89); GLUCOSE 124 mg/dL (74-104); HDL CHOLESTEROL 47 mg/dL; LDL CHOLESTEROL,CALCULATED 123 mg/dL; LDL/HDL RATIO 2.6 (<4.4); POTASSIUM 4.1 mmol/L (3.5-4.5); SODIUM 141 mmol/L (135-145); TOTAL PROTEIN 7.1 g/dL (6.4-8.9); TRIGLYCERIDES 250 mg/dL (48-352); VLDL CHOLESTEROL 50 mg/dL
[2023-08-25 09:19] LABS: FERRITIN 496.4 ng/mL (11.0-306.8)
[2023-08-25 09:30] LABS: ESTIMATED AVERAGE GLUCOSE 94 mg/dL (70-100); HEMOGLOBIN A1c% 4.9 % (4.27-6.07)
== END 2023-08-25 08:15 | disposition home or self-care (01) ==
LOC: DI 08:14
PROVIDERS: ATTEND Physician Assistant Medical
DX: Z78.0 Asymptomatic menopausal state (principal); M85.89 Other specified disorders of bone density and structure, multiple sites; D64.9 Anemia, unspecified; E78.5 Hyperlipidemia, unspecified; R73.9 Hyperglycemia, unspecified
CPT/HCPCS: 36415; 80053; 80061; 82728; 83036; 83721; 85025

== ENCOUNTER 2023-09-09 08:00 | Outpatient (CLI) | payer MEDICARE, OTHER ==
[2023-09-09 18:14] LABS: BILIRUBIN,URINE NEGATIVE (NEGATIVE); GLUCOSE, URINE (UA) NEGATIVE (NEGATIVE); KETONES,URINE (UA) NEGATIVE (NEGATIVE); LEUKOCYTE ESTERASE, URINE LARGE (NEGATIVE); NITRITE,URINE NEGATIVE (NEGATIVE); OCCULT BLOOD,URINE NEGATIVE (NEGATIVE); PROTEIN,URINE NEGATIVE (NEGATIVE); UROBILINOGEN,URINE 0.2 (NORMAL) E.U./dL (NORMAL)
[2023-09-09 18:17] LABS: CLARITY,URINE CLOUDY (CLEAR)
[2023-09-09 18:27] LABS: BACTERIA,URINE Many /HPF (None Seen); RBC,URINE 0-5 /HPF (0-5); SQUAMOUS EPITHELIAL CELL,UR RARE Squamous (<= Few); WBC,URINE >25 /HPF (0-5)
== END 2023-09-09 23:59 | disposition home or self-care (01) ==
LOC: LAB.N 08:00
PROVIDERS: ATTEND Physician Assistant Medical
DX: R10.9 Unspecified abdominal pain (principal)
CPT/HCPCS: 81001; 87086; 87181

== ENCOUNTER 2023-09-17 08:11 | Outpatient (CLI) | payer MEDICARE, OTHER ==
--- NOTE | 2023-09-17 12:29 | CT Report ---
PROCEDURE: Abdomen/Pelvis WO INDICATIONS: ABD PAIN, RENAL CYST TECHNIQUE: A CT scan of the abdomen and pelvis was performed without the use of intravenous contrast. Images we re recorded and evaluated at appropriate window settings. Reformats: coronal and sagittal. For radiat ion dose reduction, the following was used: automated exposure control, adjustment of mA and/or kV ac cording to patient size. COMPARISON: 03/06/2023, 03/14/2023 FINDINGS: Image quality: Suboptimal evaluation due to lack of intravenous contrast.. Lower chest: Unremarkable. Liver: No contour-deforming mass. Gallbladder and biliary tree: No radiopaque stones or wall thickening. No biliary dilation. Spleen: No splenomegaly. Pancreas: No pancreatic ductal dilation. Adrenals: No adrenal nodule. Kidneys and ureters: No hydronephrosis. No contour deforming mass. Interval decrease in size of the r ight renal cyst, now measuring 7.7 cm, previously 12.6 cm. Additional renal cysts cannot be completel y characterized in absence of contrast. Stomach, bowel and peritoneum: No bowel distension. No pathologic free fluid. Lymph nodes: No central or retroperitoneal adenopathy. Vessels: No infrarenal aortic aneurysm. Stable appearance of the rounded lesion in the pancreatic shelly l measuring 2.1 cm. PELVIS Reproductive organs: Unremarkable. Bladder: No wall thickness, accounting for underdistention. Pelvic lymph nodes: No pelvic adenopathy by size criteria. Bones: No aggressive osseous abnormality. Right total hip arthroplasty. Posterior and interbody surgi randall fusion at L5-S1. Other: No significant ventral or inguinal hernia. Tiny umbilical hernia containing fat. IMPRESSION: Interval decrease in size of the right renal cyst, now measuring 7.7 cm, previously 12.6 cm. Addition al renal cystic lesions cannot be assessed on this noncontrast examination. Stable 2.1 cm splenic artery aneurysm. Recommend vascular surgery referral. Reviewed by: Gerber Santamaria MD on 09/17/2023 12:28 PM PST Approved by: Gerber Santamaria MD on 09/17/2023 12:28 PM PST Station ID: [id number]
== END 2023-09-17 08:12 | disposition home or self-care (01) ==
LOC: DI 08:11
PROVIDERS: ATTEND Physician Assistant Medical
DX: N28.1 Cyst of kidney, acquired (principal); I72.8 Aneurysm of other specified arteries; R10.9 Unspecified abdominal pain

== ENCOUNTER 2023-10-12 08:00 | Outpatient (CLI) | payer MEDICARE, OTHER ==
--- NOTE | 2023-10-12 15:28 | XRAY Report ---
PROCEDURE: Hip 2 View RT INDICATIONS: RIGHT HIP ARTHROPLASTY TECHNIQUE: 2 view(s) of the hip were acquired. COMPARISON: None FINDINGS: Bones: No fractures or dislocations. No suspicious bony lesions. The visualized pelvic ring appear s intact. Well-aligned arthroplasty without hardware complication. Soft tissues: No suspicious soft tissue calcifications or masses. IMPRESSION: Well-aligned right partial hip arthroplasty without hardware complication. Reviewed by: Gerber Santamaria MD on 10/12/2023 3:26 PM PST Approved by: Gerber Santamaria MD on 10/12/2023 3:26 PM PST Station ID: [id number]
== END 2023-10-12 23:59 | disposition home or self-care (01) ==
LOC: DI.WOS 08:00
PROVIDERS: ATTEND Orthopaedic Surgery
DX: M25.551 Pain in right hip (principal); Z96.641 Presence of right artificial hip joint

== ENCOUNTER 2024-02-22 07:14 | Outpatient (CLI) | payer MEDICARE, OTHER ==
[2024-02-22 12:30] LABS: ALBUMIN 4.5 g/dL (3.2-5.5); ALKALINE PHOSPHATASE 51 IU/L (42-121); ALT ALANINE AMINOTRANSFERASE 13 IU/L (10-60); AST ASPARTATE AMINOTRANSFERASE 15 IU/L (10-42); BUN - BLOOD UREA NITROGEN 15 mg/dL (6-20); CALCIUM 9.9 mg/dL (8.5-10.3); CARBON DIOXIDE - CO2 31 mmol/L (21-32); CHLORIDE 102 mmol/L (101-111); CHOL/HDL RATIO 4.7 (<4.4); CHOLESTEROL 180 mg/dL; CREATININE 0.8 mg/dL (0.6-1.3); GFR - MDRD 70 (>89); GLUCOSE 101 mg/dL (74-104); HDL CHOLESTEROL 38 mg/dL; LDL CHOLESTEROL,CALCULATED 65 mg/dL; LDL/HDL RATIO 1.7 (<4.4); POTASSIUM 3.9 mmol/L (3.5-4.5); SODIUM 137 mmol/L (135-145); TOTAL PROTEIN 6.8 g/dL (6.4-8.9); TRIGLYCERIDES 384 mg/dL; VLDL CHOLESTEROL 77 mg/dL
== END 2024-02-22 07:15 | disposition home or self-care (01) ==
LOC: LAB.N 07:14
PROVIDERS: ATTEND Physician Assistant Medical
DX: E78.5 Hyperlipidemia, unspecified (principal)
CPT/HCPCS: 36415; 80053; 80061; 83721